=== PATIENT | female | born 1940 | race Caucasian/White ===

== ENCOUNTER → 2018-05-22 09:50 | Outpatient (CLI) | payer OTHER, SELFPAY | PROVIDERS: PCP Family Medicine; Visit Provider Specialist/Technologist Athletic Trainer | DX: M85.852 Other specified disorders of bone density and structure, left thigh (principal); Z78.0 Asymptomatic menopausal state; F17.200 Nicotine dependence, unspecified, uncomplicated; Z91.89 Other specified personal risk factors, not elsewhere classified | CPT/HCPCS: 77080 ==

== ENCOUNTER → 2019-02-28 09:57 | Outpatient (CLI) | payer OTHER, SELFPAY ==
--- NOTE | 2019-02-28 10:12 | DI.CT.S_ITS ---
PROCEDURE: CT LE LT W CON INDICATIONS: Pain in left ankle and joints of left foot TECHNIQUE: Noncontrast 1-1.5 mm axial sections acquired from above the tibiotalar joint to the bottom of the calcaneus, with coronal and sagittal reformats. COMPARISON: [facility] [place], [place], XR ANKLE 3 VIEWS WEIGHT BEARING RIGHT, 02/23/2019, 13:45. FINDINGS: Image quality: Excellent. Bones: Diffuse osteopenia. Comminuted, intra-articular fracture of the distal tibial plafond is seen with mild impaction and minimal articular surface incongruity. There is mild diastasis of the lateral tibial plafond articular surface measuring approximately 1 mm image 189/4 Additionally, minimally impacted fracture of the distal fibula/lateral malleolus. Age-indeterminate calcaneal fracture is noted which may be subacute or chronic given the presence of some callus formation Chronic spurring at the plantar calcaneus. There is diffuse midfoot and hindfoot degenerative sclerosis and spurring. First MTP degeneration and diffuse interphalangeal osteoarthritis. Soft tissues: Extensive hindfoot subcutaneous soft tissue edema and tibiotalar joint effusion. Diffuse muscle atrophy IMPRESSION: Mildly impacted intra-articular fracture of the distal tibial plafond, with minimal articular surface incongruity. The appearance is worrisome for acute (versus subacute) age. Minimally impacted fracture of the distal fibula/lateral malleolus. This finding also suspected to be acute versus subacute. Age-indeterminate anterior calcaneal fracture, suspect subacute or chronic. Recommend clinical correlation Diffuse osteopenia. Diffuse muscle atrophy Hindfoot soft tissue edema and tibiotalar joint effusion Dictated by: Hank Combs M.D. on 02/28/2019 at 10:20 Approved by: Hank Combs M.D. on 02/28/2019 at 10:29
== END ==
PROVIDERS: Family Provider Family Medicine; PCP Family Medicine; Visit Provider Orthopaedic Surgery Foot and Ankle Surgery
DX: M25.572 Pain in left ankle and joints of left foot (principal); S82.392A Other fracture of lower end of left tibia, initial encounter for closed fracture; S82.62XA Displaced fracture of lateral malleolus of left fibula, initial encounter for closed fracture; S92.022A Displaced fracture of anterior process of left calcaneus, initial encounter for closed fracture; M85.872 Other specified disorders of bone density and structure, left ankle and foot; M25.472 Effusion, left ankle; M62.572 Muscle wasting and atrophy, not elsewhere classified, left ankle and foot
CPT/HCPCS: 73700

== ENCOUNTER → 2019-04-09 11:02 | Outpatient (CLI) | payer OTHER, SELFPAY ==
--- NOTE | 2019-04-09 | DI.US.S_ITS ---
PROCEDURE: US PERIPH VENOUS LOW EXTREM LT INDICATIONS: LT LEG SWELLING TECHNIQUE: Real-time imaging, as well as color and pulse Doppler interrogation, were performed of the lower extremity deep veins from the inguinal ligament to the popliteal fossa. COMPARISON: None. FINDINGS: The common femoral, femoral and popliteal veins are normally compressible, and free of intraluminal thrombus. Color and pulse Doppler demonstrate normal phasic intraluminal flow. There is normal augmentation response to distal compression maneuver. IMPRESSION: No DVT found. Dictated by: Rony Carrasquillo M.D. on 04/09/2019 at 13:10 Approved by: Rony Carrasquillo M.D. on 04/09/2019 at 13:10
== END ==
PROVIDERS: Family Provider Family Medicine; PCP Family Medicine; Visit Provider Orthopaedic Surgery Foot and Ankle Surgery
DX: M79.89 Other specified soft tissue disorders (principal)
CPT/HCPCS: 93971

== ENCOUNTER → 2019-12-04 11:04 | Outpatient (CLI) | payer OTHER, SELFPAY ==
[2019-12-05 14:15] LABS: COVID19 Sendout Not Detected (Not Detect)
== END ==
PROVIDERS: Family Provider Family Medicine; PCP Family Medicine; Visit Provider Physician Assistant
DX: Z11.59 Encounter for screening for other viral diseases (principal)
CPT/HCPCS: 87635

== ENCOUNTER 2019-12-08 15:41 | Observation (INO) | payer OTHER, SELFPAY ==
[2019-12-05 08:25] VITALS: BMI 26.8
[2019-12-07] VITALS (14 sets, daily range): BP systolic 109–144; BP diastolic 49–75; PULSE 71–91; RESP 12–18; TEMP 35.9–36.9; O2SAT 94–100; BMI 26.8
--- NOTE | 2019-12-07 | DI.RAD.S_ITS ---
PROCEDURE: XR ANKLE LT MIN 3V INDICATIONS: OR TECHNIQUE: 3 limited intraoperative fluoroscopic views of the left ankle were acquired. COMPARISON: [facility] [place], XR ANKLE 1 OR 2 VIEWS LEFT, 09/25/2019, 15:55. FINDINGS: Status post ORIF of the distal tibia and calcaneus. No gross hardware complication. Prominent plantar calcaneal spur. Fully threaded, anterograde cannulated screw is seen extending across the calcaneus and talus. IMPRESSION: Intraoperative fluoroscopic support for ORIF of the left ankle. Please see procedure note for further details. Dictated by: Tom Mackenzie M.D. on 12/07/2019 at 14:59 Approved by: Tom Mackenzie M.D. on 12/07/2019 at 15:03
[2019-12-07] MEDS: LACTATED RINGERS 1,000 ML 42 ML IV ×2 (07:29→10:46)
--- NOTE | 2019-12-07 07:30 | PM.PREOP ---
Pre-operative Note COVID-19 COVID-19 status: Negative Interval Note History & Physical reviewed/Exam performed by Physician: Yes Changes to H&P: No
[2019-12-07] MEDS: MIDAZOLAM 2 MG/2 ML VIAL IV (07:40)
--- NOTE | 2019-12-07 07:47 | SUR.PREOP ---
Block start time [0740] . Monitoring initiated and maintained throughout procedure. Oxygen and medications given per anesthesiologist instructions. Patient remained stable throughout procedure, no adverse reactions noted. Block end time [0743].
[2019-12-07] MEDS: CEFAZOLIN 2 GM/100 ML FROZ.PIGGY IV ×2 (07:48→15:58)
--- NOTE | 2019-12-07 08:45 | SUR.OPER ---
Supine on padded OR bed, head on pillow, arms secured on padded arm boards at <90 degrees abduction, legs uncrossed, safety belt at abdomen, tape over blanket over right lower leg. left leg prepped and draped in sterile field, hip bump left hip
[2019-12-07] MEDS: BUPIVACAINE 0.25% W/ EPI 30 ML VIAL INJ (08:53)
--- NOTE | 2019-12-07 12:24 | P.OP_ITS ---
Operative Date/Time/Diagnoses Date of procedure: 12/07/19 Time of procedure: 08:00 Pre-op diagnosis: Left ankle arthritis, closed displaced pilon fracture left tibia with malunion, as arthritis left subtalar joint, rheumatoid arthritis Post-op diagnosis: same Procedure & Clinicians Procedure: 1. Arthrodesis ankle left CPT code 87898 2. Subtalar arthrodesis CPT code 01613 3. Osteotomy fibula distal left CPT code 36524 Same procedure as scheduled: Yes Indications: Patient is a 78-year-old female with a history of rheumatoid arthritis severe flatfoot and valgus deformity of the foot. She had an insufficiency fracture of the left distal fibula and tibia that severely deteriorated over time resulting in a complete collapse and subluxation of the ankle joint. She has an abrasive will deformity is but indicated for tibiotalar calcaneal fusion. She has underlying rheumatoid arthritis. She has been optimized for surgery by her electronics parts sales representative and the deckhand sponge boat. She has been taking vitamin-D and calcium. The risks and benefits of the procedure have been discussed with the patient even opportunity to ask questions. The risks of surgery include but are not limited to infection, malunion, nonunion, persistence of pain, damage to nerves and blood vessels, posttraumatic arthritis, DVT, PE, cardiopulmonary complications and . The patient expressed a thorough understanding of the risks and benefits of surgery and has elected to proceed. Consent was signed in the office. Surgeon: Maria T Daley Corporate Accountant: Jarad Hernandez Anesthesia Type: General and Local Operative Notes Findings: Severe valgus subluxation of the ankle with anterior talar extrusion. Bone loss anteriorly at the tibia. No signs of infection. Distal fibula malunion. Distal tibia malunion Closure Type: primary Specimen(s): none sent Prosthetic devices, grafts, tissues, transplants, or devices: Arthrex tibiotalarcalcaneus fusion plate, locking, left. And screws. 7.0 headless compression screw, subtalar joint Estimated Blood Loss (mL): 30 Blood products transfused: none Tourniquet time (min): 130 Procedure in detail: Patient was seen in the preoperative area the site of surgery marked informed consent confirmed. Patient underwent a peripheral block by the anesthesia team for postoperative pain control. She was brought back to the operating room positioned supine on the operative table. All bony prominences were well-padded. Well-padded thigh tourniquet was placed. An ipsilateral thigh bump was placed. The left lower extremities prepped and draped in the standard sterile fashion a formal time-out procedure was performed confirming the patient's side and site of surgery administration of appropriate preoperative antibiotics. All were in agreement. Implants were in the room Left lower extremity evaluated there is severe valgus deformity of the ankle. There were no open wounds. An Esmarch was used for exsanguination the tourniquet was elevated to 250 mm of mercury and was lowered after 2 hours and 10 minutes and was not Re elevated. Lateral incision was made over the distal fibula shaft curving anteriorly toward the cuboid distally. This was taken down through the skin and subcutaneous tissues to the level of the fibula. Periosteum was elevated exposing the fibular shaft proximally 8 cm above the joint and then distal to the level of the subtalar joint. Peroneal tendon sheath was opened. Peroneal tendons were retracted. And the subtalar joint was exposed. Saw was used to make an osteotomy of the fibular shaft distally and the distal fibula was mobilized and excised. This was then divided and morselized for bone graft. There was a malunion of the distal fibula fracture noted as well. Once this was removed this provided access to the subtalar and ankle joints. The talus was anteriorly subluxed. The attention was then turned medially for the medial exposure and excision of the medial malleolus. This was taken direct 6 cm longitudinal incision over the medial malleolus down to the level of the bone. This was subperiosteal dissected. Care was taken to expose and protect the posterior tibialis tendon and then get all around the way posteriorly protecting the FHL in the neurovascular bundle. Saw was used to make a transverse medial malleolar ulnar osteotomy and the osteotome was used to extend this posteriorly on the p osterior plafond overall making a flat cut to the end of the distal tibia. Once this was removed part of the medial malleolus was also used for bone graft. At this provided excellent bleeding surfaces of cancellous bone at the distal tibia. Some sclerotic areas anteriorly were cleaned up using the rongeur and the bur. Attention was turned to the talus. A matching flat cut of the talus just took off the cartilage down to level of bleeding cancellous bone. A taking care to minimize resection. We did however fine with the site of resection and no formal Achilles lengthening was required. Next attention was turned to the subtalar joint preparation. The Synthes joint prep set of osteotomes and a curette was used to prepare the subtalar joint again down to bleeding cancellous bone. Next the wounds were irrigated. Then the bur and a 2 mm drill were used to fenestrate the surfaces for further healing. The autograft bone and 15 cc of cancellous allograft chips were then mixed together and placed within the subtalar and tibiotalar joints. The joints were reduced and aligned obtaining excellent correction of the deformity and this was pinned in place using temporary K-wires. Once this was satisfactory on intraoperative multiplanar fluoroscopy this was again pinned and the lateral left-sided tibiotalar calcaneal plate was fit to the bone and positioned the making sure adequate bony purchase could be obtained. This was secured with BB tacks. Once this was adequate in nonlocking screw was placed in 1 of the talar holes followed by a locking screw Then attention was turned distally and a nonlocking screw was placed in the oblong hole of the calcaneus a compressing the subtalar joint. An additional 7.0 headless screw was placed outside of the plate to compress the subtalar joint to increase the likelihood of union in this high risk patient. Following this the all locking screws in the calcaneus were placed. Next attention was turned to the ankle joint. The nonlocking screw was placed in the oblong hole of the tibial part of the plate compressing the ankle joint. Then attention was turned to the a built in 6 compression hole across the ankle joint this was drilled with the 3 0 drill then over drilled with the 5 5 and the 5 5 screw was placed. Excellent compression was achieved. The remaining plate holes were then filled with locking screws. At the end of the case the nonlocking screw from the oblong hole of the tibial part of the plate was found to be loose and so this was removed. Final x-rays were taken confirming appropriate alignment and correction of the left lower extremity. The tourniquet was released hemostasis was achieved. A medium Hemovac drain was placed. Closure was completed with the 2 O Vicryl in the deep tissues and subcutaneous layers followed by 4 0 Monocryl and 3 O nylon suture. Sterile dressing was placed with Xeroform gauze Webril bulky Patel cotton and a well-padded posterior splint. Patient was woken from anesthesia and taken to the PACU in good condition. There no immediate complications from this procedure. All counts were correct. Complications: none Post-operative Condition: stable Disposition: PACU Plan for aftercare: Admission overnight will continue drain. Drain will be removed tomorrow before discharge. Plan discharge postop day 1 if pain is controlled. She will be nonweightbearing on the left lower extremity. May touchdown for balance if needed. Elevation above the heart level for the 1st 2- 3 weeks after surgery. A keep dressing clean dry and intact. She will aspirin for DVT prophylaxis. Tramadol for pain medications and she did well with this before. She endorses that she previously did not tolerate oxycodone. We will give her a small prescription of hydromorphone pain med p.o. for breakthrough pain. And she will anti nausea medication. These have been sent electronically to her pharmacy.
[2019-12-07] MEDS: LACTATED RINGERS 1,000 ML 100 ML IV (12:50)
--- NOTE | 2019-12-07 13:22 | PC.NURSE ---
Day Shift- Report rec'd from THANH Hdz in PACU at 1125. Pt arrived to unit at 1235 via bed. Pt A&OX4, oriented to call light, bed function. LLE elevated on 3 pillows. LLE incision not visualized, covered with splint and ike wrap. Cap refill <2 secs, unable to palpate pedal pulse due to dressing. Hemovac insitu and device compressed. Ice pack to LLE. Pt denies any pain at this time. LLE numb, pt not able to wiggle toes at this time to left foot. Pt is able to move leg. Bed alarm on. IVF started per order. Pt's friend Lance now in room visiting and who is pt's check writer salesperson. Lance aware of visitor policy and needing to keep her mask on at all times while visiting.
[2019-12-07] MEDS: ACETAMINOPHEN 325 MG TABLET 975 MG PO ×2 (14:22→20:52)
--- NOTE | 2019-12-07 15:20 | PT.IIE ---
Current Diagnoses Rheumatoid arthritis, unspecified (12/07/19) Primary osteoarthritis, left ankle and foot (12/07/19) Primary osteoarthritis, unspecified ankle and foot (12/07/19) Displaced pilon fracture of left tibia, subsequent encounter for closed fracture with malunion (12/07/19) Surgery Performed Operation Date: 12/07/19 07:45 Actual Procedures p Open ankle fusion & subtalar joint fusion. fibular osteotomy & bone graft autograft or allograft(Left) - Maria T Daley MD Surgical History (Last Updated 12/05/19 @ 08:43 by Marisol Alonso RN) History of arthroplasty of right knee (Acute 08/2015) History of carpal tunnel release (Acute 1997) Hx of oral surgery (Acute 1988) Medical History (Last Updated 12/05/19 @ 08:43 by Marisol Alonso RN) Allergic rhinitis (Acute) Anxiety (Acute) Asthma (Acute) Colitis (Acute) COPD (chronic obstructive pulmonary disease) (Acute) Dyslipidemia (Acute) Dyspnea on exertion (Acute) Edema (Acute) Emphysema of lung (Acute) Foot fracture, left (Acute) GERD (gastroesophageal reflux disease) (Acute) Herpes zoster (Acute) Hyponatremia (Acute) Hypothyroidism (Acute) Iron deficiency anemia (Acute) Lung nodule, solitary (Acute) Osteoarthritis (Acute) Osteoporosis (Acute) Pes planus (Acute) Pneumonia (Acute) Reactive airway disease (Acute) Rheumatoid arthritis (Acute) Scoliosis (Acute) Sinusitis (Acute) Toe pain (Acute) Physical Therapy Inpatient Evaluation/Re-Eval M1 PT/OT-IP Prior Functional Status Start: 12/07/19 16:58 Freq: NEEDED Status: Active Protocol: Document 12/07/19 15:20 AB (Rec: 12/07/19 17:16 AB [id number]) Medical Review Prior Functional Status Medical History Reviewed Yes Communication able to make needs known Mobility and Gait stated that she is modified independent with all mobilities and ambulation without AD prior to ankle fx but uses 4WW for outdoor ambulation. pt stated that she had her ankle problem since december and was able to manage at home with use of 4WW and her friend assists her as needed. Social History Household Members none Living Arrangements House Number of Floors (Floors) One Floor Number of Stairs To Enter/Railing? just a smal ~ 1inch threshold to enter the house Home Environment High Toilet,Walk in Shower Home Equipment Four Wheel Walker,Shower Seat with Backrest,Hand Held Shower Additional Social History Comment pt has a safety frame at home stated that she just got a knee scooter pt stated that her friend will stay with her for ~ 2 weeks to assist her and afterwards her daughter will be coming to assist M2 PT-IP Current Condition Start: 12/07/19 16:58 Freq: NEEDED Status: Active Protocol: Document 12/07/19 15:20 AB (Rec: 12/07/19 17:16 AB [email or web address]) Physical Therapy Current Condition Current Condition Evaluation Date 12/07/19 Treatment Diagnosis s/p L ankle arthrodesis; difficulty in walking Onset Date 12/07/19 Precautions Brace soft cast on LLE Weight Bearing Status Weight Bearing Status Non-Weight Bearing Allowed Weight Bearing Amount (enter % LLE NWB: per Dr. Sharp's or #) (%) order: NWB LLE; foot down for balance ok M3 PT-IP Subjective Start: 12/07/19 16:58 Freq: NEEDED Status: Active Protocol: Document 12/07/19 15:20 AB (Rec: 12/07/19 17:16 AB [email or web address]) Subjective Physical Therapy Visit Type Type Initial Evaluation Visit Start Time 15:20 Visit Stop Time 16:06 Total Visit Minutes 46 Number of CHEMICALS DISTILLER Visits 0 Physical Therapy Visit Comments Patient Comments pt is agreeable to do PT Therapy Pain Assessment Pain Present Pain Present Denied Pain M4 PT-IP Mobility and Gait Start: 12/07/19 16:58 Freq: NEEDED Status: Active Protocol: Document 12/07/19 15:20 AB (Rec: 12/07/19 17:16 [email or web address]) PT-Bed Mobility Assessment Supine to Sit Supine to Sit Standby Assistance Sit to Supine Sit to Supine Standby Assistance PT-Transfer Assessment Sit to and From Stand Sit to and from Stand Moderate Assistance,1 Person Assistance,Use of Upper Extremities Equipment Transfer Assistive Device Gait Belt,Front Wheeled Walker Orthotic/Prosthetic Devices or Brace: No Transfers Transfer Destination Bedside Commode Transfer Technique Stand Step Pivot Transfer Ability Level of Assist Maximum Assistance,1 Person Assistance,Use of Upper Extremities Comments Mobility Comments educated pt on precautions and weight bearing restriction. completed supine to sit SBA. pt was able to sit on EOB SBA. initial c/o dizziness but dissipated after a few minutes . BP: 133/77. completed sit to stand mod A and cues for NWB. completed step transfer to bedside commode mod to max A and max cues to maintain NWB on LLE. pt completed sit to stand from bedside commode max A and cues and transferred back to bed using FWW max A and cues. pt required cues and assist to maintain NWB on LLE. informed pt that she will need a w/c and a FWW to use at home. also instructed to call her friend to bring her knee scooter tomorrow. pt agreed. pt given options for obtaining FWW and wanted the hospital to process and dispense her one. Gait Assessment Comments Gait Comments unable at this time PT-Balance Assessment Sitting Balance and Reactions Static Sitting Balance Ability Good Dynamic Sitting Balance Ability Fair Standing Balance and Reactions Static Standing Balance Ability Poor Dynamic Standing Balance Ability Poor Device Used FWW M5 PT-IP Objective Assessments Start: 12/07/19 16:58 Freq: NEEDED Status: Active Protocol: Document 12/07/19 15:20 AB (Rec: 12/07/19 17:16 AB [id number]) Orientation Orientation/Cognition Level of Alertness Alert Orientation Name,Place,Situation Safety Awareness Decreased Safety Awareness Gross Range of Motion Lower Extremity ROM Assessment Left Impaired Impairments LLE on a soft cast Strength Lower Extremity Strength Assessment Left Impaired Hip 4-/5 Knee 3+/5 Ankle on a soft case; unable to wiggle toes Sensation Assessment Sensation Gross Sensation Left LE Impaired Sensation Description Numbness Comments Sensation Comments c/o numbness on L foot/toes Muscle Tone Muscle Tone WNL Yes M6 PT-IP Treatment Start: 12/07/19 16:58 Freq: NEEDED Status: Active Protocol: Document 12/07/19 15:20 AB (Rec: 12/07/19 17:16 AB [email or web address]) Physical Therapy Treatment Education Education Provided Precautions,Weight Bearing Status,Safety M7 PT-IP Assessment and Plan Start: 12/07/19 16:58 Freq: NEEDED Status: Active Protocol: Document 12/07/19 15:20 AB (Rec: 12/07/19 17:16 AB [email or web address]) PT Summary Assessment and Plan Potential Rehabilitation Potential Fair Status of Condition at Evaluation Evolving Summary Impairments Pain,ROM,Strength,Balance, Coordination,Sensation,Tone, Cognition,Bed Mobility, Transfers,Gait,Activity Tolerance Assessment Summary pt requiring mod to max A with mobility and unable to ambulate at this time and requires assist to maintain NWB on LLE. will conduct caregiver when appropriate. Also recommending FWW and w/c for pt to use. Pt plans to go home and her friend will assist her. pt will need homehealth PT. Goals Bed Mobility Goal Independent Transfer Goal Standby Assistance,Front Wheeled Walker Gait Goal Standby Assistance,Front Wheel Walker Gait Distance 50 Other Goals ambulation using knee scooter 100 ft SBA Days to Meet Goals 5 Frequency of Treatment Frequency Of Treatment Twice a Day Treatment Plan Physical Therapy Treatment Plan Bed Mobility Training,Transfer Training,Gait Training, Therapeutic Exercise,Balance Retraining,Post Op Education, Discharge Planning,Hot or Cold Pack,Neuromuscular Re-ed, Coordination Retraining,Manual Therapy Other Recommendations and Next Treatment caregiver training; ambulation Focus using FWW/knee scooter Recommendations To Nursing Amount of Assist Needed 1 Person Assist Discharge Recommendations PT Discharge Recommendations Home with / Assist,Home Health Transportation Needs at Discharge Private Vehicle
--- NOTE | 2019-12-07 16:54 | PM.PNPO.1 ---
Subjective Subjective Date Patient Seen: 12/07/19 Time Patient Seen: 16:54 Interval history: Postop day 0 left TTC fusion Doing well. Block working. Pain controlled. Exam Vital Signs (past 8 hours): - 12/07/19 12:00 12/07/19 12:05 12/07/19 12:10 Temperature 97 F L 97.1 F L 97.7 F Pulse Rate 91 H 90 89 Respiratory Rate 13 13 15 Blood Pressure 126/64 117/49 L 120/59 L Pulse Oximetry 95 95 100 12/07/19 12:15 12/07/19 12:20 12/07/19 12:25 Temperature 97.6 F 96.9 F L 97.6 F Pulse Rate 90 87 86 Respiratory Rate 12 12 12 Blood Pressure 134/59 L 125/58 L 116/59 L Pulse Oximetry 94 96 95 12/07/19 12:35 12/07/19 13:05 12/07/19 14:00 Temperature 96.7 F L 97.3 F L 97.7 F Pulse Rate 89 86 89 Respiratory Rate 12 14 15 Blood Pressure 109/69 129/71 144/67 H Pulse Oximetry 97 98 97 12/07/19 15:23 12/07/19 16:09 Temperature 97.0 F L 97.0 F L Pulse Rate 85 71 Respiratory Rate 18 18 Blood Pressure 127/75 118/72 Pulse Oximetry 96 Oxygen Delivery Method Room Air Oxygen Flow Rate 0 Assessment & Plan Post-op Postoperative Procedures: Procedures Operation Date: 12/07/19 07:45 Actual Procedures Side Surgeon p Open ankle fusion & subtalar joint fusion. fibular osteotomy & bone graft autograft or allograft Left Maria T Daley MD Postop day 0 left TTC fusion Nonweightbearing left lower extremity. May placed foot down for balance. Will start aspirin 81 mg b.i.d. for DVT prophylaxis on postop day 1 Remove drain postop day 1. This is just secured to the leg by a Steri-Strips found at the proximal aspect of the splint just below the knee. To remove drain just removed Steri-Strips and pull drain proximally out of the dressings. Leave splint intact. Patient has pain medications that were sent electronically. These are tramadol, small prescription of Dilaudid p.o. for breakthrough pain, Colace, Zofran. She has not tolerated oxycodone in the past but has done well with tramadol after other surgeries. She will resume her normal home medications including vitamin-D and calcium. Elevate leg above heart level to help with pain and swelling. She will get 2 doses of postoperative antibiotics while in the hospital. Pain isn't controlled on postoperative day 1 May stay for observation- pain management but if pain controlled anticipate discharge home postop day 1. Quality VTE Deep Vein Thrombosis/Pulmonary Embolism Present on Admission: No
[2019-12-07] MEDS: MONTELUKAST 10 MG TABLET PO (20:52)
[2019-12-07] MEDS: DOCUSATE 100 MG CAPSULE PO (20:52)
[2019-12-08] VITALS (8 sets, daily range): BP systolic 91–125; BP diastolic 49–82; PULSE 87–95; RESP 16–18; TEMP 36.4–36.9; O2SAT 96–99; BMI 26.8
[2019-12-08] MEDS: LEVOTHYROXINE 75 MCG TABLET PO (05:10)
[2019-12-08] MEDS: PANTOPRAZOLE 20 MG TABLET PO (05:10)
[2019-12-08] MEDS: CEFAZOLIN 2 GM/100 ML FROZ.PIGGY IV (05:11)
[2019-12-08 05:17] LABS: Hemoglobin 9.5 g/dL (12.0-16.0); Mean Corpuscular HGB Conc 33.9 % (30-36); Mean Corpuscular Hemoglobin 33.6 PG (26-34); Mean Corpuscular Volume 99.1 fL (80-100); Platelet Count 240 X10^3/uL (150-400); Red Blood Cell Count 2.82 X10^6/uL (4.0-5.2); White Blood Cell Count 13.9 X10^3/uL (4.5-11.0)
--- NOTE | 2019-12-08 05:48 | PC.NURSE ---
Addendum entered by Shireen Hsieh R.N. 12/08/19 06:02: 50 mL of sanguineous drainage from Hemov[facility] for shift. Surgical dressing remains clean, dry, intact. 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 Patient has not had much sensation in left toes nor able to move toes throughout shift, currently patient now stating she is starting to regain sensation and pressure (patient had block placed in surgery). CMS remains intact throughout shift and patient can move entire left lower extremity, just not toes. Patient requiring no pain medication. Patient using bedpan x1, and large incontinent episode x1. Patient with VSS, saline locked, and able to reposition independently in the bed. Patient remains AOx4, and on RA. Patient resting in bed in no distress.
[2019-12-08] MEDS: ALBUTEROL HFA 200 PUFF/18 GM INH (COVID POS/VENT PTS) INH (08:39)
[2019-12-08] MEDS: ACETAMINOPHEN 325 MG TABLET 975 MG PO ×3 (08:50→20:53)
[2019-12-08] MEDS: LACTOBACILLUS ACIDOPHILUS TABLET 1 EACH PO (08:51)
[2019-12-08] MEDS: ASPIRIN EC 81 MG TABLET PO ×2 (08:51→20:53)
[2019-12-08] MEDS: DOCUSATE 100 MG CAPSULE PO ×2 (08:51→20:53)
[2019-12-08 10:06] LABS: Bacteria Urine None Seen; RBC Urine None Seen (0-5/HPF)
[2019-12-08 10:07] LABS: Appearance Urine UA CLEAR; Bilirubin Urine UA NEGATIVE (NEGATIVE); Color Urine UA YELLOW; Glucose Urine UA NEGATIVE (Negative); Ketones Urine UA NEGATIVE (NEGATIVE); Leukocyte Esterase Urine UA 1+ (NEGATIVE); Nitrite Urine UA NEGATIVE (Negative); Occult Blood Urine UA NEGATIVE (Negative); Protein Urine UA NEGATIVE (Negative); Urobilinogen Urine UA 0.2 E.U./dL (0.2)
[2019-12-08 11:07] LABS: Amorphous Sediment Urine 1+; Culture Indicated Urine Specimen Cultured; Squamous Epithelial Cell Urine 0-1 /HPF (0-5/HPF); WBC Urine 0-1/HPF (0-5/HPF)
--- NOTE | 2019-12-08 11:30 | P.PN_ITS ---
Subjective Subjective Date Patient Seen: 12/08/19 Time Patient Seen: 11:30 Interval history: Patient is POD# 1 s/p tibotalocalcaneal fusion with Dr. Daley. Her pain has been well controlled. She has not worked with PT yet. She is tolerating a diet. She does complain of pain with urination, frequency, and incontinence. She has history of UTI in the past and states this feels the same. Otherwise no complaints. Exam Vital Signs (past 8 hours): - 12/08/19 04:30 12/08/19 07:59 12/08/19 08:32 Temperature 98.1 F 98.1 F Pulse Rate 91 H 94 H 90 Respiratory Rate 18 16 18 Blood Pressure 115/82 125/53 L Pulse Oximetry 97 97 97 12/08/19 11:20 Temperature 98.4 F Pulse Rate 87 Respiratory Rate 16 Blood Pressure 91/49 L Pulse Oximetry 97 Oxygen Delivery Method Room Air Oxygen Flow Rate 0 Narrative Exam Narrative: 78 year old female resting in bed. Alert and oriented x3 in no acute distress. Splint in place is CDI. Wound vac in place 50cc output over the last shift. Some padding added to the posterior proximal edge of splint as plaster is exposed. Patient is able to flex/extend the toes. Toes are warm with brisk capillary refill. Objective Labs Result Diagrams: 12/08/19 04:45 Labs: Laboratory Results - last 24 hr 12/08/19 12/08/19 04:45 09:15 WBC 13.9 H RBC 2.82 L Hgb 9.5 L Hct 28.0 L MCV 99.1 MCH 33.6 MCHC 33.9 RDW 16.0 H Plt Count 240 Urine Color Yellow Urine Appearance Clear Urine pH 7.0 Ur Specific [place] 1.010 Urine Protein Negative Urine Glucose (UA) Negative Urine Ketones Negative Urine Occult Blood Negative Urine Nitrate Negative Urine Bilirubin Negative Urine Urobilinogen 0.2 Ur Leukocyte Esterase 1+ H Urine RBC None seen Urine WBC 0-1/hpf Ur Squamous Epith Cells 0-1 /hpf Amorphous Sediment 1+ Urine Bacteria None seen Ur Culture Indicated? Specimen cultured Assessment & Plan Assessment & Plan narrative: Per Dr. Daley: Nonweightbearing left lower extremity. May placed foot down for balance. Will start aspirin 81 mg b.i.d. for DVT prophylaxis on postop day 1 Leave splint intact. Patient has pain medications that were sent electronically. These are tramadol, small prescription of Dilaudid p.o. for breakthrough pain, Colace, Zofran. She has not tolerated oxycodone in the past but has done well with tramadol after other surgeries. She will resume her normal home medications including vitamin-D and calcium. Elevate leg above heart level to help with pain and swelling. She is doing well today, pain well controlled. Does complain of UTI symptoms, m ildly elevated WBC and 1+ leuk esterace on UA. Will discharge with 3 day supply of cipro for this. Drain discontinued. She has a friend who is staying with her as caregiver. She is stable for discharge to home later today. Quality VTE Deep Vein Thrombosis/Pulmonary Embolism Present on Admission: No
--- NOTE | 2019-12-08 11:40 | PT-IP ANOTE ---
Attempted to see pt @11:40. Per RN, hold from PT until PM d/t low BP and pt receiving bolus.
[2019-12-08] MEDS: SODIUM CHLORIDE 0.9% 500 ML 1000 ML IV (11:45)
[2019-12-08] MEDS: CIPROFLOXACIN 250 MG TABLET PO ×2 (12:07→20:52)
--- NOTE | 2019-12-08 14:03 | PT.IPTN ---
Current Diagnoses Rheumatoid arthritis, unspecified (12/07/19) Primary osteoarthritis, left ankle and foot (12/07/19) Primary osteoarthritis, unspecified ankle and foot (12/07/19) Unspecified urinary incontinence (12/07/19) Unspecified abnormal findings in urine (12/07/19) Displaced pilon fracture of left tibia, subsequent encounter for closed fracture with malunion (12/07/19) Surgery Performed Operation Date: 12/07/19 07:45 Actual Procedures p Open ankle fusion & subtalar joint fusion. fibular osteotomy & bone graft autograft or allograft(Left) - Maria T Daley MD Physical Therapy Treatment Note M2 PT-IP Current Condition Start: 12/07/19 16:58 Freq: NEEDED Status: Active Protocol: Document 12/07/19 15:20 AB (Rec: 12/07/19 17:16 AB [id number]) Physical Therapy Current Condition Current Condition Evaluation Date 12/07/19 Treatment Diagnosis s/p L ankle arthrodesis; difficulty in walking Onset Date 12/07/19 Precautions Brace soft cast on LLE Weight Bearing Status Weight Bearing Status Non-Weight Bearing Allowed Weight Bearing Amount (enter % LLE NWB: per Dr. Sharp's or #) (%) order: NWB LLE; foot down for balance ok M3 PT-IP Subjective Start: 12/07/19 16:58 Freq: NEEDED Status: Active Protocol: Document 12/08/19 13:35 KS (Rec: 12/08/19 14:43 KS [id number]) Subjective Physical Therapy Visit Type Type Treatment Note Visit Start Time 13:35 Visit Stop Time 14:03 Total Visit Minutes 28 Number of DRY CHAIN OFFBEARER Visits 1 Physical Therapy Visit Comments Patient Comments pt is agreeable to do PT Therapy Pain Assessment Pain Present Pain Present Denied Pain M4 PT-IP Mobility and Gait Start: 12/07/19 16:58 Freq: NEEDED Status: Active Protocol: Document 12/08/19 13:35 KS (Rec: 12/08/19 14:43 KS [id number]) PT-Bed Mobility Assessment Supine to Sit Supine to Sit Standby Assistance Sit to Supine Sit to Supine Contact Guard Assistance Scooting Scooting to Edge of Bed Contact Guard Assistance PT-Transfer Assessment Sit to and From Stand Sit to and from Stand Minimal Assistance,1 Person Assistance,Use of Upper Extremities Equipment Transfer Assistive Device Gait Belt,Front Wheeled Walker Orthotic/Prosthetic Devices or Brace: No Transfers Transfer Destination Bed,Bedside Commode Transfer Technique Stand Pivot Transfer Ability Level of Assist Moderate Assistance,1 Person Assistance,Use of Upper Extremities Comments Mobility Comments Pt able to recall NWB status. Pt receiving bolus upon arrival but okayed by RN to treat. Pt SBA for sup<>sit, CGA for scooting EOB. Pts BP: 106/52 dneied lightheadedness. Pt Min A for sit<>stand w/ FWW but unable to fully remove LLE from ground. Pt performed 2x sit<>stands, requiring Min A for both. Pts BP assessed again at 104/52. Pt then requested to use BSC. Pt Mod A and cues for stand pivot to BSC and unable to maintain NWB during transfer. Pt then performed stand picot back to bed Mod A and cues for hand placement and sequencing. CGA for sit<>sup. Pt left in bed w / RN in room. Gait Assessment Comments Gait Comments unable at this time d/t pt not able to maintain NWB PT-Balance Assessment Sitting Balance and Reactions Static Sitting Balance Ability Good Dynamic Sitting Balance Ability Fair Standing Balance and Reactions Static Standing Balance Ability Poor Dynamic Standing Balance Ability Poor Device Used FWW M5 PT-IP Objective Assessments Start: 12/07/19 16:58 Freq: NEEDED Status: Active Protocol: Document 12/07/19 15:20 AB (Rec: 12/07/19 17:16 AB [id number]) Orientation Orientation/Cognition Level of Alertness Alert Orientation Name,Place,Situation Safety Awareness Decreased Safety Awareness Gross Range of Motion Lower Extremity ROM Assessment Left Impaired Impairments LLE on a soft cast Strength Lower Extremity Strength Assessment Left Impaired Hip 4-/5 Knee 3+/5 Ankle on a soft case; unable to wiggle toes Sensation Assessment Sensation Gross Sensation Left LE Impaired Sensation Description Numbness Comments Sensation Comments c/o numbness on L foot/toes Muscle Tone Muscle Tone WNL Yes M6 PT-IP Treatment Start: 12/07/19 16:58 Freq: NEEDED Status: Active Protocol: Document 12/08/19 13:35 KS (Rec: 12/08/19 14:43 KS [id number]) Physical Therapy Treatment Education Education Provided Precautions,Weight Bearing Status,Safety Other Treatments Other Treatment Performed Switched FWW for shorter size M7 PT-IP Assessment and Plan Start: 12/07/19 16:58 Freq: NEEDED Status: Active Protocol: Document 12/08/19 13:35 KS (Rec: 12/08/19 14:43 KS [id number]) PT Summary Assessment and Plan Potential Rehabilitation Potential Fair Status of Condition at Evaluation Evolving Summary Impairments Pain,ROM,Strength,Balance, Coordination,Sensation,Tone, Cognition,Bed Mobility, Transfers,Gait,Activity Tolerance Assessment Summary Pt requires SBA to CGA for bed mobility, CGA for scooting, Min A for sit<>stand w/ cues and FWW and Mod A w/ cues for stand pivot transfer. Pt verbally confirmed NWB status, but was unale to maintain when standing and transferring . Pt has low tolerance for activity and reported high level of fatigue after 2 sit<> stands and stand pivot transfer. Unable to complete ambulation training or further treatment d/t pts high level of fatigue. Pt will need to complete caregiver training and possibly require training w/ knee scooter which her friend stated she will bring in. Pts friend also stated she has gotten w/c for pt. If returning home, pt will benefit from HH. Goals Bed Mobility Goal Independent Transfer Goal Standby Assistance,Front Wheeled Walker Gait Goal Standby Assistance,Front Wheel Walker Gait Distance 50 Other Goals ambulation using knee scooter 100 ft SBA Days to Meet Goals 5 Frequency of Treatment Frequency Of Treatment Twice a Day Treatment Plan Physical Therapy Treatment Plan Bed Mobility Training,Transfer Training,Gait Training, Therapeutic Exercise,Balance Retraining,Post Op Education, Discharge Planning,Hot or Cold Pack,Neuromuscular Re-ed, Coordination Retraining,Manual Therapy Other Recommendations and Next Treatment caregiver training; ambulation Focus using FWW/knee scooter Recommendations To Nursing Amount of Assist Needed 1 Person Assist Discharge Recommendations PT Discharge Recommendations Home with 04/10 Assist,Home Health Transportation Needs at Discharge Private Vehicle
--- NOTE | 2019-12-08 16:31 | CM.DANOTE ---
Discharge Planning/Care Management DCP: assessment: case received, EMR reviewed and discussed in Team Rounds. PT noted they were seeing pt today and that pt's friend was getting equipment for home. Pt is a 78 year old female who admitted to care of Dr. Emiliano Daley for a scheduled surgery. A d/c to home order was noted today and then cancelled by ortho PA Ryanne. Ryanne noted the complexity of the fracture and surgery and medical problems pt was experiencing. Admission status: SCD to OBS: confirmed by UR THANH Lanza. Payer: [employer]. Pt is seeing pt today, has not cleared her for d/c and is doing caregiver training. Met now with pt and introduced self and role. Pt clarifies her plan: She has obtained a recliner so that her leg can remain elevated as per ortho instructions. Her friend Lance Silver is staying with her and she reports Lance is capable of assistance. Lance is currently out getting DME. Noted PT is now recommending 24/7 assist and HH. Pt says her neighbors are very helpful and her daughters will be arriving at some point to assist her. SNF: briefly discussed as pt's [employer] plan would likely cover a short snf rehab stay. Pt says this has already been encourage by care team and it's been taken off the table by me. HH: She says that she was unaware that HH was being recommended but after explanation of this she very much agrees that PT/OT would be helpful. Discussed HH agency choice list: no specific choice. Due to lateness of hour will need to leave for DCP team to continue tomorrow and follow for the HH specifics. Advanced directive, confirm from FAMILY Start: 12/07/19 13:08 Freq: Q24H Status: Active Protocol: Document 12/07/19 13:08 AC (Rec: 12/07/19 14:39 AC [id number]) Advance Directive, confirm on record Time 12:45 Person contacted patient Copy received No CM Discharge Assessment Start: 12/08/19 16:29 Freq: Status: Active Protocol: Document 12/08/19 16:30 ITV (Rec: 12/08/19 16:31 ITV [id number]) Discharge Planning Assessment Advance Directives? Yes History Provided By Patient,Medical Record Prior Living Arrangements House Household Members none Independent with ADL's Yes Is patient alert and oriented? Yes Whiteboard Updated in Patient Room with Yes name and ext. # of Lunch Wagon Operator Review Status In Process Pre-Anesthesia Assessment Start: 12/05/19 08:25 Freq: Status: Complete Protocol: Document 12/05/19 08:25 CAB (Rec: 12/05/19 08:53 CAB [id number]) Pre-Anesthesia Assessment Patient Information Reviewed Via Chart Review H&P Completed Within 30 Days Yes Diagnostic Results BMP/CMP,CBC Comment Outside labs/EKG scanned in, COVID screen @ 12/04/19 pending Primary Care Provider Kang [facility] Medical Clearance Received Yes Seen Specialist in Last 12 Months Yes Specialist Seen Orthopedist,[employer], Other Comment PCP, Pulmonary and Rheumatology pre-op clearances scanned to record Primary Language Lao Groover Operator Required No Height 154.94 cm Weight 64.41 kg Body Mass Index (BMI) 26.8 Hx Anesthesia Reactions Yes: Long time coming out of anesthesia w/RT [id number] Anesthesia Review Requested Yes: Surgeon requested, reason not provided. Smoking Status Current every day smoker Smoking cigarettes per day 3 Pain Present Pain Reported Musculoskeletal Symptoms Deformity,Difficulty Walking, Limited Range of Motion,Muscle Weakness Patient is completely paralyzed or No completely immobile Prosthesis or Orthotic Device Front Wheel Walker Mental Status Oriented to own ability Does patient have ELIZABETH/SOB Yes: ELIZABETH Currently Taking a Beta Stevie No Can You Climb a Flight of Stairs Without No SOB Hx SOB Yes Urinary Catheter Present No Hx Urinary Self Catheterization No Diabetes No Patient No Lactating No Have you had any close contact with Unknown someone diagnosed with COVID-19?
[2019-12-08] MEDS: SODIUM CHLORIDE 0.9% 500 ML 250 ML IV (16:32)
[2019-12-08] MEDS: MONTELUKAST 10 MG TABLET PO (20:53)
[2019-12-08] MEDS: BUDESONIDE FORMOTEROL 2 EACH INH (20:57)
[2019-12-09] VITALS: BP 119/47; PULSE 89; RESP 16; TEMP 37; O2SAT 96
[2019-12-09] MEDS: TRAMADOL 50 MG TABLET PO ×3 (00:01→12:34)
[2019-12-09] MEDS: PANTOPRAZOLE 20 MG TABLET PO (05:58)
[2019-12-09] MEDS: LEVOTHYROXINE 75 MCG TABLET PO (05:58)
[2019-12-09 06:17] VITALS: BP 130/87; PULSE 92; RESP 16; TEMP 36.9; O2SAT 97
[2019-12-09 07:43] VITALS: BP 116/73; PULSE 74; RESP 17; TEMP 36.9; O2SAT 97
--- NOTE | 2019-12-09 08:59 | P.DS_ITS ---
History of Present Illness History of Present Illness Date Patient Seen: 12/09/19 Time Patient Seen: 08:59 Chief complaint: OPB Narrative: Patient is a 78-year-old female with a history of a left tibia and fibula insufficiency fractures and a valgus hindfoot deformity despite bracing and immobilization the patient went on to severe malunion and subluxation of the ankle joint with severe valgus deformity for a non braceable deformity and arthritis. As she was unable to ambulate or wear braces. She was indicated for tibiotalar calcaneal fusion. There is an underlying diagnosis of rheumatoid arthritis. She underwent medical clearance by her black pickler and senior media planner and primary care for the scant procedure. She endorses pain inability to weightbear, rubbing medially on braces. Difficulty with ambulation. Decline in function. The year prior she had similar for insufficiency fracture on the contralateral side without an underlying deformity and healed these uneventfully. Discharge Providers Provider Date of admission: 12/07/2019 Discharge Date: 12/09/19 Primary care physician: Kang Boone MD Consults: 12/05/19 13:38 Consult to Anesthesiology Routine Comment: Consulting Provider: Anesthesiologist Reason for consultation: Surgeon requested re: Reason not provided 12/07/19 06:00 Consult to Anesthesiology Routine Comment: Consulting Provider: Anesthesiologist Reason for consultation: Post operative pain managment Has provider been notified: No 12/07/19 07:02 Consult to Respiratory Therapy Evaluate & Treat Comment: Physician Instructions: Evaluate and treat 12/07/19 12:39 Consult to Discharge Planning Routine Comment: Consult to Physical Therapy Evaluate & Treat Comment: NWB LLE - foot down for balance ok Physician Instructions: Evaluate and Treat Consult to Respiratory Therapy Evaluate & Treat Comment: Physician Instructions: Evaluate and treat 12/08/19 09:22 Consult to Physical Therapy Evaluate & Treat Comment: Please dispense a front wheel walker Physician Instructions: Evaluate and Treat Discharge provider: Maria T Daley MD Summary Hospital Course Discharge Diagnosis: 1. 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 Acute blood loss postoperative anemia 5. Rheumatoid arthritis 6. UTI Hospital Course: Patient is a 78-year-old female with rheumatoid arthritis. She had left tibia and fibula insufficiency fractures and a valgus hindfoot. These underwent catastrophic collapse resulting in severe deformity and subluxation of the ankle joint. She was indicated for tibiotalar calcaneal fusion to correct her ankle and subtalar joint deformities. Postoperatively the patient was admitted to the floor. She had a drain in overnight. This was appropriate to discontinue on postoperative day 1. On postoperative day 1 the patient had some low blood pressures and had difficulty working with physical therapy. Her block was just wearing off and there were issues with pain control. She was switched from outpatient with but observation and peptic overnight for pain control and to further work with physical therapy and arrange home health. Additionally she has some burning in urination and urinalysis showed positive leukocyte Estrace consistent with urinary tract infection. She was started on 3 days of Cipro for this. On postoperative day 2 she was feeling much better and her pain was controlled with oral tramadol. Further assistance was arranged home including home health the patient was appropriate for discharge home with assistance and home health. Status at Discharge Cognitive/behavioral status at discharge: oriented Functional status at discharge: uses cane/walker Overall status at discharge: patient is progressing back to baseline Time Spent with Patient Time spent: Less than 30 minutes Exam Vital Signs (past 8 hours): - 12/09/19 06:17 Temperature 98.5 F Pulse Rate 92 H Respiratory Rate 16 Blood Pressure 130/87 Pulse Oximetry 97 Oxygen Delivery Method Room Air Oxygen Flow Rate 0 Narrative Exam Narrative: Alert oriented female no acute distress. Sitting up in bed eating breakfast. States was quite weak with some low blood pressure yesterday but feeling more ?perky? today HEENT exam normocephalic atraumatic Respiratory exam unlabored on room air Cardiac exam regular rate and rhythm Abdomen soft Musculoskeletal examination. Left lower extremity splint clean dry and intact. Wiggles toes. Sensation intact grossly to light touch. Block wore off during the day yesterday. Patient states pain was pretty rough yesterday but tramadol seems to be controlling it. Calf is soft. Objective Labs Result Diagrams: 12/08/19 04:45 Labs: Laboratory Results - last 24 hr 12/08/19 09:15 Urine Color Yellow Urine Appearance Clear Urine pH 7.0 Ur Specific [place] 1.010 Urine Protein Negative Urine Glucose (UA) Negative Urine Ketones Negative Urine Occult Blood Negative Urine Nitrate Negative Urine Bilirubin Negative Urine Urobilinogen 0.2 Ur Leukocyte Esterase 1+ H Urine RBC None seen Urine WBC 0-1/hpf Ur Squamous Epith Cells 0-1 /hpf Amorphous Sediment 1+ Urine Bacteria None seen Ur Culture Indicated? Specimen cultured Discharge Assessment & Plan Assessment and Plan Assessment: 1. Left ankle insufficiency fractures of the tibia and fibula with malunion. Severe valgus deformity of the ankle and hindfoot with ankle and subtalar arthritis. Status post tibiotalar calcaneal fusion. Nonweightbearing on the left lower extremity. May touch foot down for balance. Keep elevated above the heart level to reduce swelling and pain. Pain control with tramadol. Will have breakthrough Dilaudid p.o. if needed. Take Tylenol to a 1000 mg 3 times a day. May take ibuprofen or Advil Quill and up to ibuprofen 800 mg 3 times a day if needed. Will take aspirin 81 mg b.i.d. for DVT prophylaxis. 2. Acute blood lost postop anemia. Hemoglobin 9.5. Vital signs stable. May add p.o. iron if needed but balance iron narcotics with constipation. Discussed stool softeners. 3. UTI. Three days Cipro p.o. 4. Follow-up as scheduled in orthopedic clinic. Keep splint clean dry and intact. 5. Discharge home today with home health. Plan of Treatment: See above for assessment and plan Discharge Plan Discharge Plan Patient Disposition: Home Discharge Med Rec/Prescriptions Prescriptions: New ondansetron HCl [Zofran] 4 mg tablet 4 mg PO Q8H PRN (Reason: nausea and vomiting) Qty: 10 RF: 1 tramadol 50 mg tablet 50 mg PO Q6H PRN (Reason: pain) Qty: 60 RF: 0 hydromorphone [Dilaudid] 2 mg tablet 2 mg PO Q4H PRN (Reason: pain (scale score 7-10)) Qty: 10 RF: 0 aspirin 81 mg tablet,chewable 81 mg PO BID Qty: 30 RF: 1 docusate sodium [Colace] 100 mg capsule 100 mg PO BID Qty: 30 RF: 1 ciprofloxacin HCl [Cipro] 250 mg tablet 250 mg PO BID 3 Days Qty: 6 RF: 0 ciprofloxacin HCl 250 mg Tablet 250 mg PO BID 2 Days Qty: 4 RF: 0 Continued montelukast [Singulair] 10 mg Tablet 10 mg PO BEDTIME RF: 0 albuterol sulfate 90 mcg/actuation Hfa Aerosol Inhaler 1 - 2 puff INHALATION Q4-6H PRN (Reason: Shortness Of Breath) RF: 0 methotrexate sodium (PF) 25 mg/mL Solution 30 mg SUBCUT QWEEK RF: 0 budesonide-formoterol 160-4.5 mcg/actuation Hfa Aerosol Inhaler 2 puff INHALATION BID RF: 0 levothyroxine 75 mcg Capsule 75 mcg PO DAILY RF: 0 omeprazole 20 mg Capsule,Delayed Release(Dr/Ec) 20 mg PO DAILY RF: 0 Culturelle 10 billion cell Capsule 1 cap PO DAILY RF: 0 Follow up/Referrals: Maria T Daley MD [Physician] - Kang Boone MD [Primary Care Provider] - Discharge Orders: Discharge (Order); Ordered 12/09/19 Ordered By: Maria T Daley Provider Discharge Instructions Diet: Diet as Tolerated Activity: NWB LLE, touch down for balance ok Other treatments: At-Home Instructions - Dr. Daley Surgery: Left ankle deformity correction and tibiotalar calcaneal fusion Cast/Splint/Dressing Care Instructions 1) Keep cast/dressing clean and dry. 2) May bathe - but cast/dressing must remain dry. 3) Should the cast become wet, you need to come into emergency department or call your physician's clinic immediately for cast removal and replacement. Moisture can cause skin breakdown and lead to infection if left untreated. 4) Do not stick any sharp object down the cast to itch, as this can cause scrapes/cuts/punctures which can lead to infection. 6) Observe for increasing pain in the extremity with the cast, finger/toe-tips turning blue/purple, or numbness and tingling in your toes/fingers. Should any of these symptoms arise, you need to be seen immediately for evaluation of swelling and increasing compartment pressures within your affected extremity. 7) Keep your affected extremity elevated - Toes Above your Nose? - This is handy in the first two weeks after surgery to minimize swelling. 8) You may ice your extremity, being careful to prevent melting ice from saturating into the splint/cast. Activity No heavy lifting greater than 10 pounds[address] while on narcotic pain medication. Do not get your dressing/cast/splint wet! You must remain non-weight bearing on your operative extremity. Use crutches or a walker for ambulation. Do not smoke. This will impact her wound and bone healing. No driving until you are otherwise instructed by your physician. This will be addressed at your first follow-up appointment. Discharge Pain Medications You will be given a prescription for pain medication. You should start taking this the same day after your surgery. Wean off as tolerated. Do not wait to take the pain medication until the pain is severe, as it will be difficult to catch up once this occurs. The pain medication usually reaches its full effect ~1 hour after ingesting. If you have been sent home on Colace, this medication should be taken until you are off all narcotic (i.e. Vicodin, tramadol, Percocet, Oxycodone, Dilaudid, etc) pain medications, to prevent constipation. You may also obtain this or another stool softener over the counter to prevent or alleviate constipation. Percocet or Vicodin have Tylenol in their ingredient lists. You must be careful not to exceed 3,000mg (3 grams) of Tylenol, from all sources, within a single 24-hr period. This means that you may not take more than 10 pills within a 24- hr period. Do NOT take Regular or Extra Strength Tylenol when taking your Percocet or Vicodin medications. You may take Tylenol if there taking plain oxycodone, Dilaudid for tramadol. -Some common side effects of the narcotic pain medications (Percocet, Oxycodone, Vicodin, etc.) include nausea and itching. Benadryl is a great over the counter medication that helps calm your stomach, decreases your anxiety levels, and minimizes the itching. You can easily purchase this at your local pharmacy as an [id number] medication. Please abide by the instructions as printed on the bottle. If your nausea persists, make sure to take small amounts of crackers or other trailer park manager foods. Follow-Up/Emergency Contacts Please call for an appointment in either [place] or [place], if one has not been scheduled. Follow up 1 week after surgery. [phone] Contact the office if you have any of the following: ? Painful swelling or numbness ? Unrelenting pain ? Fever (over 101?- it is normal to have a low grade fever for the first day or two following surgery) or chills ? Redness around the incisions ? Color changes ? Continuous bleeding or drainage from the incision (a small amount is expected) ? Excessive nausea or vomiting ? Difficulty breathing If you have an emergency that requires immediate attention, proceed to the nearest emergency room. Blood Clot Prophylaxis You will need to complete a total 6-week (42 days) course of Aspirin (81 mg twice a day) after surgery, to minimize the risk of blood clots following surgery. You may alternatively purchase or use [id number] generic equivalent Aspirin. If you already have ?baby? Aspirin (81mg) at home, you can take 1 ?baby? Aspirin twice a day. Pain Medications: It is the policy of [facility] that narcotic medications will only be refilled during office hours. Additionally, due to the alarming rate of narcotic pain medication abuse/dependence, it has become necessary for physician practices to closely manage patient use of prescription narcotic pain relievers, such as Vicodin ([place]), Percocet, and Oxycodone tramadol or Dilaudid products. Narcotic pain management in the postoperative period may not exceed 6 weeks. If narcotic pain management is required beyond 90 days, then a referral to a Chronic Pain Specialist will be made. If a request for a medication prescription has been made, the physician must review your chart prior to authorizing the request. Please be patient with office staff. If you call during patient hours, your call may not be returned until the end of the day. A visit will be required before a narcotic prescription can be issued. Dr. Maria T Daley [address] [email or web address] Skin/Wound/Dressing Care Report to your healthcare provider any signs of infection, such as:: chills, fever, night sweats, increased pain, unusual drainage and unusual redness Dressing: keep clean dry and intact Visit Report/Discharge Packet Instructions: DI for Prescription Opioid Use, Hydromorphone, Ciprofloxacin Discharge Data Primary Care Provider: Kang Boone Attending Provider: Maria T Daley VTE Deep Vein Thrombosis/Pulmonary Embolism Present on Admission: No
[2019-12-09 09:01] VITALS: PULSE 91; RESP 16; O2SAT 98
[2019-12-09] MEDS: BUDESONIDE FORMOTEROL 2 EACH INH (09:01)
[2019-12-09] MEDS: DOCUSATE 100 MG CAPSULE PO (09:27)
[2019-12-09] MEDS: ASPIRIN EC 81 MG TABLET PO (09:27)
[2019-12-09] MEDS: ACETAMINOPHEN 325 MG TABLET 975 MG PO ×2 (09:27→12:34)
[2019-12-09] MEDS: CIPROFLOXACIN 250 MG TABLET PO (09:28)
[2019-12-09] MEDS: LACTOBACILLUS ACIDOPHILUS TABLET 1 EACH PO (09:28)
--- NOTE | 2019-12-09 11:41 | PT.IPTN ---
Current Diagnoses Rheumatoid arthritis, unspecified (12/07/19) Primary osteoarthritis, left ankle and foot (12/07/19) Primary osteoarthritis, unspecified ankle and foot (12/07/19) Unspecified urinary incontinence (12/07/19) Unspecified abnormal findings in urine (12/07/19) Displaced pilon fracture of left tibia, subsequent encounter for closed fracture with malunion (12/07/19) Surgery Performed Operation Date: 12/07/19 07:45 Actual Procedures p Open ankle fusion & subtalar joint fusion. fibular osteotomy & bone graft autograft or allograft(Left) - Maria T Daley MD Physical Therapy Treatment Note M2 PT-IP Current Condition Start: 12/07/19 16:58 Freq: NEEDED Status: Active Protocol: Document 12/07/19 15:20 AB (Rec: 12/07/19 17:16 AB [id number]) Physical Therapy Current Condition Current Condition Evaluation Date 12/07/19 Treatment Diagnosis s/p L ankle arthrodesis; difficulty in walking Onset Date 12/07/19 Precautions Brace soft cast on LLE Weight Bearing Status Weight Bearing Status Non-Weight Bearing Allowed Weight Bearing Amount (enter % LLE NWB: per Dr. Sharp's or #) (%) order: NWB LLE; foot down for balance ok M3 PT-IP Subjective Start: 12/07/19 16:58 Freq: NEEDED Status: Active Protocol: Document 12/09/19 11:10 CLB (Rec: 12/09/19 12:57 CLB [id number]) Subjective Physical Therapy Visit Type Type Treatment Note Visit Start Time 11:10 Visit Stop Time 11:41 Total Visit Minutes 31 Notes Friend Lance present for CG training. Number of PROVIDER RELATIONS ADVOCATE Visits 2 Physical Therapy Visit Comments Patient Comments pt is agreeable to do PT Therapy Pain Assessment Pain Present Pain Present Denied Pain M4 PT-IP Mobility and Gait Start: 12/07/19 16:58 Freq: NEEDED Status: Active Protocol: Document 12/09/19 11:10 CLB (Rec: 12/09/19 12:57 CLB [id number]) PT-Bed Mobility Assessment Supine to Sit Supine to Sit Standby Assistance Scooting Scooting to Edge of Bed Standby Assistance PT-Transfer Assessment Sit to and From Stand Sit to and from Stand Minimal Assistance,1 Person Assistance,Use of Upper Extremities Equipment Transfer Assistive Device Gait Belt,Front Wheeled Walker Orthotic/Prosthetic Devices or Brace: No Transfers Transfer Destination Chair,Bedside Commode Transfer Technique Stand Pivot Transfer Ability Level of Assist Minimal Assistance,1 Person Assistance,Use of Upper Extremities Comments Mobility Comments Pt able to get to EOB SBA and manage LLE off bed. Pt stood Min A and was able to place leg onto scooter. After demonstration and education pt was able to steer scooter while propelling scooter with RLE ~15ft requiring CGA. Pt then transferred from scooter to chair CGA while bearing wt though RLE and using LLE for balance only. Pt the stood with FWW and CGA from Lance and transferred to BSC then back to chair using stand pivot and assist of Lance. Pt left in chair with all needs within reach and Lance present . Gait Assessment Comments Gait Comments unable at this time d/t pt not able to maintain NWB M5 PT-IP Objective Assessments Start: 12/07/19 16:58 Freq: NEEDED Status: Active Protocol: Document 12/07/19 15:20 AB (Rec: 12/07/19 17:16 AB [id number]) Orientation Orientation/Cognition Level of Alertness Alert Orientation Name,Place,Situation Safety Awareness Decreased Safety Awareness Gross Range of Motion Lower Extremity ROM Assessment Left Impaired Impairments LLE on a soft cast Strength Lower Extremity Strength Assessment Left Impaired Hip 4-/5 Knee 3+/5 Ankle on a soft case; unable to wiggle toes Sensation Assessment Sensation Gross Sensation Left LE Impaired Sensation Description Numbness Comments Sensation Comments c/o numbness on L foot/toes Muscle Tone Muscle Tone WNL Yes M6 PT-IP Treatment Start: 12/07/19 16:58 Freq: NEEDED Status: Active Protocol: Document 12/08/19 13:35 KS (Rec: 12/08/19 14:43 KS [id number]) Physical Therapy Treatment Education Education Provided Precautions,Weight Bearing Status,Safety Other Treatments Other Treatment Performed Switched FWW for shorter size M7 PT-IP Assessment and Plan Start: 12/07/19 16:58 Freq: NEEDED Status: Active Protocol: Document 12/09/19 11:10 CLB (Rec: 12/09/19 12:57 CLB [id number]) PT Summary Assessment and Plan Potential Rehabilitation Potential Fair Status of Condition at Evaluation Evolving Summary Impairments Pain,ROM,Strength,Balance, Coordination,Sensation,Tone, Cognition,Bed Mobility, Transfers,Gait,Activity Tolerance Assessment Summary Pt requires SBA for all bed mobility and Min A for sit<> stand, pt cesar Lucas was able to assist pt with sit<> Stand and transfer to and from Chair>BSC>chair. Pt was provided with education on use of knee scooter and pt was able to manuever Knee scooter requiring CGA. Pt cesar Lucas got WC to assist with getting into house as pt has no stairs through garage. Pt also has FWW, BSC, shower chair and bed rail. Pt's cesar Lucas will stay with pt. Pt will benefit from services. Goals Bed Mobility Goal Independent Transfer Goal Standby Assistance,Front Wheeled Walker Gait Goal Standby Assistance,Front Wheel Walker Gait Distance 50 Other Goals ambulation using knee scooter 100 ft SBA Days to Meet Goals 5 Frequency of Treatment Frequency Of Treatment Twice a Day Treatment Plan Physical Therapy Treatment Plan Bed Mobility Training,Transfer Training,Gait Training, Therapeutic Exercise,Balance Retraining,Post Op Education, Discharge Planning,Hot or Cold Pack,Neuromuscular Re-ed, Coordination Retraining,Manual Therapy Recommendations To Nursing Amount of Assist Needed 1 Person Assist Discharge Recommendations PT Discharge Recommendations Home with 04/10 Assist,Home Health Transportation Needs at Discharge Private Vehicle
[2019-12-09 12:04] VITALS: BP 112/72; PULSE 79; RESP 16; TEMP 36.9; O2SAT 97
--- NOTE | 2019-12-09 13:16 | PC.NURSE ---
Discharge: Pt feels ready to d/c home, MD here and gave d/c instructions, and later MD instructions given to pt to read, she reports she understands them. keller machine operator training completed with PT. Already has rx at home. Reviewed sxs for uti and when she should call. Questions answered. Pt d/c home with friend.
--- NOTE | 2019-12-09 15:19 | CM.DPC ---
DCP continued: EMR Reviewed: TANIA.Rn spoke with Abdoulaye/Shawn torres today about patient D/C home and she signed F2F. Patient D/C home with [facility] . CM/Rn faxed clinicals and F2F to [facility] and spoke with Sharron [phone] and let her know patient was D/C today. TANIA/Rn Faxed D/C summary to [facility] as well. F2F placed into green folder to scan into EMR. no other D/C planning needs noted at this time. Dorothea Rodriguez RN
== END 2019-12-09 13:00 | disposition home or self-care (01) ==
LOC: OR 12-10 14:40 → AC 12-10 14:40
PROVIDERS: Orthopaedic Surgery Adult Reconstructive Orthopaedic Surgery; Admitting Provider Orthopaedic Surgery Foot and Ankle Surgery; Family Provider Family Medicine; PCP Family Medicine; Referring Provider Family Medicine; Visit Provider Orthopaedic Surgery Foot and Ankle Surgery
PROC: (CPT 27870; principal; 2019-12-07 07:45)
DX: S82.872P Displaced pilon fracture of left tibia, subsequent encounter for closed fracture with malunion (principal); M19.072 Primary osteoarthritis, left ankle and foot; M21.42 Flat foot [pes planus] (acquired), left foot; M05.772 Rheumatoid arthritis with rheumatoid factor of left ankle and foot without organ or systems involvement; M21.962 Unspecified acquired deformity of left lower leg; F17.210 Nicotine dependence, cigarettes, uncomplicated; J44.9 Chronic obstructive pulmonary disease, unspecified; K21.9 Gastro-esophageal reflux disease without esophagitis
CPT/HCPCS: 27870; 28725; 27707; 36415; 64450; 73610; 81001; 85027; 87086; 94760; 97162; 97530; G0378; A9270; J0330; J0690; J1100; J1170; J2250; J2405; J2704; J3010

== ENCOUNTER → 2020-05-23 08:22 | Outpatient (CLI) | payer OTHER, SELFPAY ==
[2019-12-08 21:04] VITALS: BMI 26.8
--- NOTE | 2020-05-23 | DI.US.S_ITS ---
PROCEDURE: [facility] VENOUS LOW EXTREM LT INDICATIONS: LEFT LEG PAIN AND SWELLING TECHNIQUE: Real-time imaging, as well as color and pulse Doppler interrogation, were performed of the lower extremity deep veins from the inguinal ligament to the popliteal fossa. COMPARISON: [facility], [facility] VENOUS LOW EXTREM LT, 04/09/2019, 11:43. FINDINGS: The common femoral, femoral and popliteal veins are normally compressible, and free of intraluminal thrombus. Color and pulse Doppler demonstrate normal phasic intraluminal flow. There is normal augmentation response to distal compression maneuver. IMPRESSION: No DVT found. Dictated by: Rony Carrasquillo M.D. on 05/23/2020 at 9:12 Approved by: Rony Carrasquillo M.D. on 05/23/2020 at 9:35
== END ==
PROVIDERS: Family Provider Family Medicine; PCP Physician Assistant Medical; Referring Provider Orthopaedic Surgery; Visit Provider Orthopaedic Surgery
DX: M79.662 Pain in left lower leg (principal); M79.89 Other specified soft tissue disorders
CPT/HCPCS: 93971

== ENCOUNTER 2020-05-30 16:17 | Inpatient (IN) | payer OTHER, SELFPAY ==
[2019-12-08 21:04] VITALS: BMI 26.8
[2020-05-30 16:24] VITALS: BP 185/81; PULSE 87; RESP 16; TEMP 36.1; O2SAT 98; BMI 25.9
--- NOTE | 2020-05-30 16:30 | DI.RAD.S_ITS ---
PROCEDURE: XR ANKLE LT 2V INDICATIONS: Fall, left ankle pain. Plate and screws from previous fusion TECHNIQUE: 2 views of the ankle were acquired. COMPARISON: [facility], CR, XR ANKLE LT MIN 3V, 12/07/2019, 9:42. FINDINGS: Bones: Patient is status post fusion of tibiotalar and subtalar joint with lateral fusion hardware in place. Long fixation screw extending through the length of calcaneus is also noted. There is prior resection of distal fibular. Diffuse osteopenia is seen. No gross acute fracture or dislocation is seen. No gross hardware loosening or failure is noted. Well-defined plantar calcaneal enthesophyte is seen. No fractures or dislocations. Ankle mortise is normally aligned. No suspicious bony lesions. Soft tissues: No tibiotalar joint effusion. Achilles tendon appears normal. IMPRESSION: Extensive post fusion changes in ankle joint as above. No gross hardware loosening or failure. No gross acute fracture or dislocation. Osteoarthritic changes in visualized portion of midfoot and hindfoot joints. Well-defined plantar calcaneal enthesophyte. Dictated by: John Rausch M.D. on 05/30/2020 at 17:08 Approved by: John Rausch M.D. on 05/30/2020 at 17:10
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
--- NOTE | 2020-05-30 17:07 | PC.NURSE ---
foundry technician confirmed fracture, patient uncomfortable in wheelchair. Placed on stretcher and returned to department
--- NOTE | 2020-05-30 17:44 | ED_ITS ---
HPI - Extremity Injury (Lower) General Chief Complaint: Extremity Injury, Lower Stated Complaint: left ankle injury Time Seen by Provider: 05/30/20 17:17 Source: patient Mode of arrival: Family Vehicle Limitations: no limitations History of Present Illness HPI Narrative: Patient is a 79-year-old female with history of rheumatoid arthritis here for evaluation of left leg injury. She was getting into her car where she fell backwards hurting her left leg. She did not hit her head. There was no loss of consciousness. She is not on anticoagulation. Reports no other injury from the event. Related Data Home Medications Medication Instructions Recorded Confirmed albuterol sulfate 1 - 2 puff INHALATION Q4-6H PRN 12/05/19 12/07/19 budesonide-formoterol 2 puff INHALATION BID 12/05/19 12/07/19 levothyroxine 75 mcg PO DAILY 12/05/19 12/07/19 methotrexate sodium (PF) 30 mg SUBCUT QWEEK 12/05/19 12/07/19 montelukast [Singulair] 10 mg PO BEDTIME 12/05/19 12/07/19 Culturelle 1 cap PO DAILY 12/07/19 12/07/19 omeprazole 20 mg PO DAILY 12/07/19 12/07/19 Previous Rx's Medication Instructions Recorded aspirin 81 mg PO BID #30 tab 12/07/19 docusate sodium [Colace] 100 mg PO BID #30 cap 12/07/19 hydromorphone [Dilaudid] 2 mg PO Q4H PRN #10 tab 12/07/19 ondansetron HCl [Zofran] 4 mg PO Q8H PRN #10 tab 12/07/19 tramadol 50 mg PO Q6H PRN #60 tab 12/07/19 Allergies Allergy/AdvReac Type Severity Reaction Status Date / Time cefaclor [From CECLOR] Allergy Severe RASH Verified 05/30/20 16:29 Penicillins [PENICILLINS] Allergy Severe RASH Verified 05/30/20 16:29 celecoxib [From CELEBREX] Allergy Intermediate RACING Verified 05/30/20 16:29 HEART naproxen [From ALEVE] Allergy Intermediate RACING Verified 05/30/20 16:29 HEART prednisone [PREDNISONE] Allergy Intermediate RACING Verified 05/30/20 16:29 HEART clarithromycin [From BIAXIN] Allergy Unknown UNKNOWN Verified 05/30/20 16:29 REACTION PER PT erythromycin base AdvReac Severe FEELS Verified 05/30/20 16:29 [ERYTHROMYCIN BASE] LIKE IT'S EATING A HOLE IN MY STOMACH Review of Systems Constitutional Constitutional: Denies fever(s) and Denies headache(s) ENT Ears, Nose, Mouth, and Throat: Denies headache(s) Cardiovascular Cardiovascular: Denies chest pain and Denies dyspnea Respiratory Respiratory: Denies dyspnea Gastrointestinal Gastrointestinal: Denies abdominal pain, Denies nausea and Denies vomiting Genitourinary Genitourinary: Denies dysuria Genitourinary: Denies dysuria Musculoskeletal Musculoskeletal: Denies myalgias Comments: Left leg pain Integumentary/Breasts Skin/Breast: Denies lesions and Denies rash Neurologic Neurologic: Denies behavioral changes and Denies headache(s) Psychiatric Psychiatric: Denies behavioral changes Hematologic/Lymphatic On Anticoagulants: No Allergic/Immunologic Allergic/Immunologic: Denies urticaria Patient History Medical History Allergic rhinitis Anxiety Asthma Colitis COPD (chronic obstructive pulmonary disease) Dyslipidemia Dyspnea on exertion Edema Emphysema of lung Foot fracture, left GERD (gastroesophageal reflux disease) Herpes zoster Hyponatremia Hypothyroidism Iron deficiency anemia Lung nodule, solitary Osteoarthritis Osteoporosis Pes planus Pneumonia Reactive airway disease Rheumatoid arthritis Scoliosis Sinusitis Toe pain Surgical History History of arthroplasty of right knee (08/2015) History of carpal tunnel release (1997) Hx of oral surgery (1988) Social History household members: none Smoking Status: Current every day smoker alcohol intake: never Smoking Status: Current every day smoker alcohol intake frequency: holidays/special occasions only Substance Use Type: does not use Exam Initial Vital Signs Initial Vital Signs: Vital Signs Temperature 97.0 F L 05/30/20 16:24 Pulse Rate 87 05/30/20 16:24 Respiratory Rate 16 05/30/20 16:24 Blood Pressure 185/81 H 05/30/20 16:24 Pulse Oximetry 98 05/30/20 16:24 Const General: cooperative and comfortable Limitations: mental status not altered HENMT Head: normal to inspection and normocephalic Cardio Pulses: dorsalis pedis present on the left Skin Lesions: no lesions Rashes: no rashes Neuro Sensory Exam: no sensory deficits noted Extrem General: capillary refill normal Psych Appearance: grossly normal and well kempt Procedures Orthopedic Splinting/Casting Injury #1: Side: left Lower Extremity Injury Location: lower leg Lower Extremity Immobilizer: posterior splint Post splinting neuro exam: no change Post splinting vascular exam: no change Placed by: Provider Course Orders Ordered: ED Orders 05/30/20 16:30 XR ankle LT 2V Stat XR tibia fibula LT 2V Stat 05/30/20 18:00 Basic Metabolic Panel Stat Complete Blood Count AUTO DIFF Stat 05/30/20 18:08 CT LE LT wo con Stat 05/30/20 18:33 COVID19 - ADMIT (HYPERTRICHOLOGIST swab/PCR) Stat Sodium Chloride (Normal Saline 0.9%) 1,000 mls @ 125 mls/hr IV CONT FAY Last Admin: 05/30/20 18:10 Dose: 125 mls/hr Documented by: XU Discontinued Medications Morphine Sulfate (Morphine 4 Mg/Ml Inj) 4 mg IV NOW ONE Stop: 05/30/20 17:45 Last Admin: 05/30/20 18:09 Dose: 4 mg Documented by: XU Ondansetron HCl (Ondansetron 4 Mg/2 Ml Inj) 4 mg IV NOW ONE Stop: 05/30/20 17:45 Last Admin: 05/30/20 18:10 Dose: 4 mg Documented by: XU Vital Signs Vital signs: Vital Signs - 8 hr 05/30/20 16:24 Temperature 97.0 F L Pulse Rate 87 Respiratory Rate 16 Blood Pressure 185/81 H Pulse Oximetry 98 MDM - Extremity Injury (Lower) Lab Data Attestation: I reviewed the patient's lab results. Result diagrams: 05/30/20 18:00 05/30/20 18:00 Labs: Lab Results 05/30/20 05/30/20 Range/Units 18:00 18:00 WBC 7.9 (4.5-11.0) X10^3/uL RBC 3.55 L (4.0-5.2) X10^6/uL Hgb 10.4 L (12.0-16.0) g/dL Hct 31.7 L (36-46) % MCV 89.3 (80-100) fL MCH 29.3 (26-34) PG MCHC 32.8 (30-36) % RDW 20.9 H (11.6-14.8) % Plt Count 274 (150-400) X10^3/uL Neut % (Auto) 81.0 H (50-75) % Lymph % (Auto) 9.1 L (25-40) % [place] % (Auto) 7.7 (3-14) % Eos % (Auto) 1.4 L (2-4) % Baso % (Auto) 0.8 (0-2) % Neut # (Auto) 6400 (0984-2642) /uL Lymph # (Auto) 700 L (6770-1203) /uL [place] # (Auto) 600 (0-900) /uL Eos # (Auto) 100 (0-450) /uL Baso # (Auto) 100 (0-100) /uL Platelet Estimate Adequate on smear RBC Morphology See below Hypochromasia 1+ H Anisocytosis 1+ H Microcytosis 1+ H Sodium 131 L (137-145) mmol/L Potassium 4.2 (3.4-5.1) mmol/L Chloride 103 (98-107) mmol/L Carbon Dioxide 22 (22-32) mmol/L BUN 18 H (7-17) mg/dL Creatinine 0.53 (0.52-1.04) mg/dL Estimated GFR > 60.0 (>60) mL/min BUN/Creatinine Ratio 34.0 H (6-22) Glucose 113 H (80-110) mg/dL Calcium 8.9 (8.4-10.2) mg/dL Imaging Data Extremity x-ray #1: Radiologist's Impression: [address] [id number] ReportSigned Patient: Loretta Mayo [facility]#: [id number]: 1940cct:[id number]/Sex: 79 / FDate of Service: 05/30/20Loc: EDAccession Number: [id number] Procedure: XR ankle LT 2V Ordering Provider: Allen Fabian D.O. PROCEDURE: XR ANKLE LT 2V INDICATIONS: Fall, left ankle pain. Plate and screws from previous fusion TECHNIQUE: 2 views of the ankle were acquired. COMPARISON: [facility], CR, XR ANKLE LT MIN 3V, 12/07/2019, 9:42. FINDINGS: Bones: Patient is status post fusion of tibiotalar and subtalar joint with lateral fusion hardware in place. Long fixation screw extending through the length of calcaneus is also noted. There is prior resection of distal fibular. Diffuse osteopenia is seen. No gross acute fracture or dislocation is seen. No gross hardware loosening or failure is noted. Well-defined plantar calcaneal enthesophyte is seen. No fractures or dislocations. Ankle mortise is normally aligned. No suspicious bony lesions. Soft tissues: No tibiotalar joint effusion. Achilles tendon appears normal. IMPRESSION: Extensive post fusion changes in ankle joint as above. No gross hardware loosening or failure. No gross acute fracture or dislocation. Osteoarthritic changes in visualized portion of midfoot and hindfoot joints. Well-defined plantar calcaneal enthesophyte. Dictated by: John Rausch M.D. on 05/30/2020 at 17:08 Approved by: John Rausch M.D. on 05/30/2020 at 17:10 Extremity x-ray #2: Radiologist's Impression: [address] [id number] ReportSigned Patient: Loretta Mayo [facility]#: [id number]: 3Acct:[id number]/Sex: 79 / FDate of Service: 05/30/20Loc: EDAccession Number: [id number] Procedure: XR tibia fibula LT 2V Ordering Provider: Allen Fabian D.O. PROCEDURE: XR TIBIA FIBULA LT 2V INDICATIONS: fall out of car TECHNIQUE: 3 views of the tibia and fibula were acquired. COMPARISON: None. FINDINGS: Bones: Acute oblique fracture involving proximal tibial shaft is seen with dorsal angulation at fracture site. Minimal anterior and lateral displacement is also seen. No other fracture or dislocation. Moderate tricompartmental osteoarthritis in left knee is seen. No suspicious bony lesions. Soft tissues: No suspicious soft tissue calcifications or masses. IMPRESSION: Acute slightly displaced proximal tibial shaft fracture as above. Dictated by: John Rausch M.D. on 05/30/2020 at 17:10 Approved by: John Rausch M.D. on 05/30/2020 at 17:11 [facility] Narrative Medical decision making narrative: Patient does have a midshaft tibial fracture. She reports no other injuries from the event and no other injuries were found on the exam. This does appear to be a mechanical fall. She is neurovascularly intact distal. Patient was seen by Orthopedics here in the emergency department. Plan to be is to admit for surgical treatment tomorrow. Splint was applied here in the ER. Discussed this with the patient and family or bedside. They expressed understanding agreement Discharge Plan Departure Patient Disposition: Admitted As Inpatient Clinical Impression: Closed tibia fracture Admit Date/Time: 05/30/20 18:31 Admit Provider: Jeramie Elizalde
--- NOTE | 2020-05-30 17:53 | PM.HP.1 ---
History of Present Illness History of Present Illness Date Patient Seen: 05/30/20 Time Patient Seen: 17:53 Date of Onset of Symptoms: 05/30/20 Chief complaint: left ankle injury Narrative: This is an unfortunate 79-year-old female with a longstanding history of rheumatoid arthritis of about 20 years. She has known severe osteoporosis. She had a severe deformity of her left ankle with valgus stress fracture and severe osteoporosis. She also has known severe left knee osteoarthritis. She underwent an and extensive left ankle fusion. She has been out of her boot for a while and ambulating but unfortunately her left knee flared up. She had was seen recently and schedule for possible left knee arthroplasty. She has a CT scan of her left ankle ordered for Tuesday to see of her fusion is healed. She was taken to trying to drive herself to the store today when her foot got caught and she fell backwards and heard a snap in her left leg. She noted the acute onset of pain and deformity. Patient History Medical History Allergic rhinitis Anxiety Asthma Colitis COPD (chronic obstructive pulmonary disease) Dyslipidemia Dyspnea on exertion Edema Emphysema of lung Foot fracture, left GERD (gastroesophageal reflux disease) Herpes zoster Hyponatremia Hypothyroidism Iron deficiency anemia Lung nodule, solitary Osteoarthritis Osteoporosis Pes planus Pneumonia Reactive airway disease Rheumatoid arthritis Scoliosis Sinusitis Toe pain Surgical History History of arthroplasty of right knee (08/2015) History of carpal tunnel release (1997) Hx of oral surgery (1988) Family & Social History Social History: household members none Safety & Behavioral: Feels Safe in Current Yes Environment Been Physically Hurt or No Threatened By a Person Tobacco & Substance use: Smoking Status Current every day smoker alcohol intake never alcohol intake frequency holiday/special occasion Substance Use Type does not use Meds Home Medications and Allergies Home Medications Medication Instructions Recorded Confirmed Type albuterol sulfate 1 - 2 puff INHALATION Q4-6H PRN 12/05/19 12/07/19 History budesonide-formoterol 2 puff INHALATION BID 12/05/19 12/07/19 History levothyroxine 75 mcg PO DAILY 12/05/19 12/07/19 History methotrexate sodium (PF) 30 mg SUBCUT QWEEK 12/05/19 12/07/19 History montelukast [Singulair] 10 mg PO BEDTIME 12/05/19 12/07/19 History Culturelle 1 cap PO DAILY 12/07/19 12/07/19 History aspirin 81 mg PO BID #30 tab 12/07/19 Rx docusate sodium [Colace] 100 mg PO BID #30 cap 12/07/19 Rx hydromorphone [Dilaudid] 2 mg PO Q4H PRN #10 tab 12/07/19 Rx omeprazole 20 mg PO DAILY 12/07/19 12/07/19 History ondansetron HCl [Zofran] 4 mg PO Q8H PRN #10 tab 12/07/19 Rx tramadol 50 mg PO Q6H PRN #60 tab 12/07/19 Rx Allergies Allergy/AdvReac Type Severity Reaction Status Date / Time cefaclor [From CECLOR] Allergy Severe RASH Verified 05/30/20 16:29 Penicillins [PENICILLINS] Allergy Severe RASH Verified 05/30/20 16:29 celecoxib [From CELEBREX] Allergy Intermediate RACING Verified 05/30/20 16:29 HEART naproxen [From ALEVE] Allergy Intermediate RACING Verified 05/30/20 16:29 HEART prednisone [PREDNISONE] Allergy Intermediate RACING Verified 05/30/20 16:29 HEART clarithromycin [From BIAXIN] Allergy Unknown UNKNOWN Verified 05/30/20 16:29 REACTION PER PT erythromycin base AdvReac Severe FEELS Verified 05/30/20 16:29 [ERYTHROMYCIN BASE] LIKE IT'S EATING A HOLE IN MY STOMACH Review of Systems Review of Systems Narrative: She denies she was not short of breath or lightheaded prior to her fall, she denies a history of dizziness or lightheadedness and did not have any cardiac symptoms prior to her fall. Exam Vital Signs (past 8 hours): - 05/30/20 16:24 Temperature 97.0 F L Pulse Rate 87 Respiratory Rate 16 Blood Pressure 185/81 H Pulse Oximetry 98 Oxygen Delivery Method Room Air Narrative Exam Narrative: HEENT is benign she is alert she is oriented she is appropriate lungs are clear cor regular rate and rhythm abdomen soft benign examination of her left lower extremity shows a well-healed scar, skin is intact over the midshaft of her tibia there is obvious deformity and swelling of the tibia foot is warm and viable she has slight decreased sensation distally. Objective Labs Labs: X-rays show a displaced midshaft left tibia fracture with gross malalignment. There is retained internal fixation distally at her ankle. I also reviewed prior x-rays including knee x-rays and ankle x-rays prior to her fusion she had severe valgus deformity and severe osteoporosis. Assessment & Plan Assessment & Plan narrative: Extremely complex problem with a midshaft tibia fracture and ankle fusion with retained internal fixation severe osteoporosis and severe knee arthritis with valgus deformity as well as rheumatoid arthritis. I have recommended that we place her in a long-leg splint. I a think she needs is to get her CT scan of her left ankle to evaluate the fusion and assess whether not her left ankle is healing. She is a candidate for intramedullary nailing of her left tibia. The difficulty is to get an nail that all fit and still a lower ultimately to have a total knee arthroplasty. She also will repeat likely require some removal of internal fixation. The options are either a retrograde nail or an antegrade nail. I think likely she is a candidate for antegrade nailing but we will look at the CT scan of her ankle to assess whether not her ankle is fusion is healing. She requires inpatient admission she has got rheumatoid arthritis multiple medical problems and a very complicated left lower extremity problem. Quality MIPS - Admit Advanced Care Plan / Current Medications Measures: #47 ? Advanced Care Plan Clinician documentation instruction: document at admission. [] I confirmed that the patient's Advance Care Plan is present, code status is documented, or surrogate decision maker is listed in the patient?s medical record. [SATISFIES MIPS PERFORMANCE] If Yes, Stop Here [] The patient?s Advance Care plan is not present because: (select) [MIPS PERFORMANCE EXCEPTION/EXCLUSION] [] I confirmed today that the patient does not wish or was not able to name a surrogate decision maker or provide an Advance Care Plan. [] Hospice care is currently being provided or has been provided this calendar year [] I did NOT confirm today the presence of an Advance Care Plan or surrogate decision maker documented within the patient's medical record. [DOES NOT SATISFY MIPS PERFORMANCE] #130 - Documentation of Current Medications in the Medical Record Clinician documentation instruction: use macro the first time you see a patient. [] I have utilized all available immediate resources to obtain, update, or review the patient?s current medications. [SATISFIES MIPS PERFORMANCE] If Yes, Stop Here [] The patient is not eligible for medication reconciliation; the patient is in an emergent medical situation where delaying treatment would jeopardize the patient?s health. [MIPS PERFORMANCE EXCEPTION/EXCLUSION] [] I did NOT confirm, update or review the patient's current list of medications today. [DOES NOT SATISFY MIPS PERFORMANCE] MIPS - CL Central Venous Catheter Placement Measure: #76 ? Prevention of Central Venous Catheter (CVC) ? Related Bloodstream Infection Clinician documentation instruction: use macro every time you place a central line. [] All elements of Maximal Sterile Barrier Technique, including hand hygiene, skin prep, and sterile ultrasound technique (if used) were followed. [SATISFIES MIPS PERFORMANCE] If Yes, Stop Here [] If ?No?, the medical reason all elements were NOT used for medical reason [] (ex. emergent condition). [] Maximal Sterile Barrier Technique was not followed, no reason provided [DOES NOT SATISFY MIPS PERFORMANCE] MIPS - DC Heart Failure Measures: #5 - Heart Failure (HF): Angiotensin-Converting Enzyme (HORACIO) Inhibitor or Angiotensin Receptor Stevie (ARB) Therapy for Left Ventricular Systolic Dysfunction (LVSD) and #8 - Heart Failure (HF): Beta-Stevie Therapy for Left Ventricular Systolic Dysfunction (LVSD) Clinician documentation instruction: use macro at every CHF discharge. [] The patient has current or prior documentation of left ventricular ejection fraction (LVEF) less than 40%, or moderate or severely depressed left ventricular systolic function. Answer both: [SATISFIES MIPS PERFORMANCE] [] The patient was prescribed or already taking an Angiotensin-Converting Enzyme (HORACIO) Inhibitor, or Angiotensin Receptor Stevie (ARB). [] The patient was prescribed or already taking a beta-stevie. If Yes to Both, Stop Here [] Patient not prescribed/taking: [MIPS PERFORMANCE EXCEPTION/EXCLUSION] [] HORACIO or ARB for medical/patient/system reason(s) including [] (ex. allergy, intolerance, contraindication) [] Beta-stevie for medical/patient/system reason(s) including [] (ex. allergy, intolerance, contraindication) [] Patient not prescribed/taking: [DOES NOT SATISFY MIPS PERFORMANCE] [] HORACIO or ARB, no reason given [] Beta-stevie, no reason given
[2020-05-30 18:07] LABS: Add Manual Diff / Slide Review NO; Basophils Absolute Auto 100 /uL (0-100); Basophils Percent Auto 0.8 % (0-2); Eosinophils Absolute Auto 100 /uL (0-450); Eosinophils Percent Auto 1.4 % (2-4); Hematocrit 31.7 % (36-46); Hemoglobin 10.4 g/dL (12.0-16.0); Lymphocytes Absolute Auto 700 /uL (1100-4500); Lymphocytes Percent Auto 9.1 % (25-40); Mean Corpuscular HGB Conc 32.8 % (30-36); Mean Corpuscular Hemoglobin 29.3 PG (26-34); Mean Corpuscular Volume 89.3 fL (80-100); Monocytes Absolute Auto 600 /uL (0-900); Monocytes Percent Auto 7.7 % (3-14); Neutrophils Absolute Auto 6400 /uL (1500-7000); Platelet Count 274 X10^3/uL (150-400); Red Blood Cell Count 3.55 X10^6/uL (4.0-5.2); Red Cell Distribution Width 20.9 % (11.6-14.8); White Blood Cell Count 7.9 X10^3/uL (4.5-11.0)
--- NOTE | 2020-05-30 18:08 | DI.CT.S_ITS ---
PROCEDURE: CT LE LT W CON INDICATIONS: Ortho would like CT of ankle TECHNIQUE: Noncontrast 3-mm axial sections acquired from the distal tibial shaft to the talar dome, with coronal and sagittal reformats.. COMPARISON: [facility], CR, XR TIBIA FIBULA LT 2V, 05/30/2020, 16:43. [facility], CR, XR ANKLE LT 2V, 05/30/2020, 16:43. [facility], CT, CT LE LT WO CON, 02/28/2019, 9:57. FINDINGS: Image quality: Diagnostic, significant beam hardening artifacts from lower leg fusion hardware is seen slightly limits the evaluation. Bones: As seen on earlier lower leg radiograph, there is an acute comminuted oblique fracture involving proximal to mid tibial shaft with slight dorsal angulation at fracture site and up to 7 mm lateral displacement at fracture site. There is prior resection of distal fibular shaft and extensive fusion of tibiotalar joint and subtalar joint. Long fixation screw extending the length of calcaneus is also seen. Diffuse osteopenia is noted, osteoarthritic changes are noted throughout left foot. No definite acute fracture or dislocation is seen in ankle or foot. No gross hardware loosening or failure is noted. No suspicious intraosseous lesion. Moderate to severe tricompartmental osteoarthritis in left knee is seen. Soft tissues: There is extensive soft tissue swelling and edema throughout left lower leg extending to ankle and hindfoot. There is suggestion of small to moderate amount of suprapatellar joint effusion. No abnormal soft tissue calcification is seen. Visualized portion of quadriceps tendon and patellar tendon are intact. Achilles tendon is grossly intact. Plantar fascia is within normal limits. IMPRESSION: 1. Acute comminuted and slightly displaced proximal to mid tibial shaft fracture as described above. No other definite acute fracture or dislocation is seen. 2. Extensive fusion of tibiotalar joint and subtalar joint with surgical hardware in place. No gross hardware loosening or failure. Diffuse osteopenia. No suspicious intraosseous lesion. Osteoarthritic changes are noted throughout left foot. Prior resection of distal fibular shaft. 3. Extensive soft tissue swelling and edema throughout left lower leg. Moderate to severe left knee joint osteoarthritis with small joint effusion. Dictated by: John Rausch M.D. on 05/30/2020 at 19:21 Approved by: John Rausch M.D. on 05/30/2020 at 19:29
[2020-05-30] MEDS: MORPHINE 4 MG/ML INJ IV (18:09)
[2020-05-30] MEDS: SODIUM CHLORIDE 0.9% 1,000 ML 125 ML IV (18:10)
[2020-05-30] MEDS: ONDANSETRON 4 MG/2 ML INJ IV (18:10)
[2020-05-30 18:22] LABS: Blood Urea Nitrogen 18 mg/dL (7-17); Calcium 8.9 mg/dL (8.4-10.2); Carbon Dioxide 22 mmol/L (22-32); Chloride 103 mmol/L (98-107); Estimated Glomerular Filt Rate > 60.0 mL/min (>60); Glucose 113 mg/dL (80-110); HEMOLYSIS < 15 (0-50); Potassium 4.2 mmol/L (3.4-5.1); Sodium 131 mmol/L (137-145)
--- NOTE | 2020-05-30 18:29 | PC.NURSE ---
Pt states she fell backwards getting into the car. denies hitting her head, denies LOC or blood thinners. has a deformed tibia on the L side. IV placed and medicated per MAY. Dr Rodriguez in to see. plan for surgery tomorrow. Splinted with assistance from Dr Fabian
[2020-05-30 18:31] LABS: Anisocytosis 1+; Platelet Estimate Adequate on smear
[2020-05-30 18:32] VITALS: BP 174/87; PULSE 78; O2SAT 94
[2020-05-30 18:32] LABS: Hypochromasia 1+; Microcytosis 1+
[2020-05-30 19:15] VITALS: BP 166/81; PULSE 88; RESP 18; TEMP 36; O2SAT 97
[2020-05-30 19:41] LABS: COVID19 - ADMIT (NP swab/PCR) Negative (Negative)
[2020-05-30 20:28] VITALS: BMI 25.9
--- NOTE | 2020-05-30 22:04 | PC.ADMIT ---
2119 [facility] Admission Note: The patient,Loretta Mayo,79 y/o, was given written information regarding hospital policies, unit procedures and contact persons. Patient's smoking status: Former smoker. Pt arrived from ED via stretcher at approx 1915. Alert and Oriented. Oriented to room and Call system. Bed alarm placed on. Pt verbalized she will call for needs. Vital Signs - 8 hr 05/30/20 16:24 05/30/20 18:32 05/30/20 19:15 Temperature 97.0 F L 96.8 F L Pulse Rate 87 78 88 Respiratory Rate 16 18 Blood Pressure 185/81 H 174/87 H 166/81 H Pulse Oximetry 98 94 97
[2020-05-30 22:09] LABS: RBC Urine None Seen (0-5/HPF); WBC Urine None Seen (0-5/HPF)
[2020-05-30 22:11] LABS: Bilirubin Urine UA NEGATIVE (NEGATIVE); Color Urine UA YELLOW; Glucose Urine UA NEGATIVE (Negative); Ketones Urine UA TRACE (NEGATIVE); Leukocyte Esterase Urine UA NEGATIVE (NEGATIVE); Nitrite Urine UA NEGATIVE (Negative); Occult Blood Urine UA NEGATIVE (Negative); Protein Urine UA NEGATIVE (Negative); Urobilinogen Urine UA 0.2 E.U./dL (0.2)
[2020-05-30 22:15] LABS: Appearance Urine UA Cloudy; pH Urine UA 6.5 (4.5-8.0)
[2020-05-30 22:22] LABS: Amorphous Sediment Urine 3+
[2020-05-30 22:23] LABS: Bacteria Urine Occasional (0-1); Culture Indicated Urine Cult Not Indicated; Squamous Epithelial Cell Urine 0-1 /HPF (0-5/HPF)
--- NOTE | 2020-05-30 23:03 | PM.HP.1 ---
History of Present Illness History of Present Illness Date Patient Seen: 05/30/20 Time Patient Seen: 21:00 Chief complaint: left ankle injury Narrative: Loretta Mayo is 79-year-old female with a longstanding history of rheumatoid arthritis of about 20 years, severe osteoporosis, and severe left knee osteoarthritis, presented today after a mechanical fall at home resulting in a left sided tibial fracture. She was trying to drive herself to the store today when her foot got caught and she fell backwards and heard a snap in her left leg. She noted the acute onset of pain and deformity. She denies losing consciousness or hitting her head, denies shortness of breath, chest pain,, denies nausea or vomiting, she does endorse urinary frequency but would prefer not to have a catheter placed, denies diarrhea or constipation. In November of 2019 she underwent tibiotalar calcaneal fusion to correct her ankle and subtalar joint deformities by Dr. Ni. She has been out of her boot for a while and ambulating but unfortunately her left knee flared up. She had was seen recently and schedule for possible left knee arthroplasty. She has a CT scan of her left ankle ordered for Tuesday to see of her fusion is healed. In the ED, xray indicated an acute comminuted and slightly displaced proximal to mid tibial shaft fracture. She was seen by Dr. Tiffany Rodriguez who plans to take her into the OR for internal fixation by intermedullary nailing of the left tibia. Patient is afebrile, blood pressure 166/81, heart rate 88, respiratory rate 18, oxygen saturation of 97% on room air she weighs 70 kg with a BMI of 27.9. WBC is 7.9, RBC 3.55, hemoglobin 10.4, hematocrit 31.7, platelet count 274, sodium 131, glucose is 113, UA is negative for UTI and COVID-19 PCR is negative. Patient self administers methotrexate 25 mg every Tuesday and has requested that she be able to do so while she is here. Patient has a stated history of hypothyroidism and just recently had her TSH drawn and her levothyroxine was reduced from 100 mcg to 75 mcg for which she takes at bedtime. Patient History Medical History Allergic rhinitis Anxiety Asthma Colitis COPD (chronic obstructive pulmonary disease) Dyslipidemia Dyspnea on exertion Edema Emphysema of lung Foot fracture, left GERD (gastroesophageal reflux disease) Herpes zoster Hyponatremia Hypothyroidism Iron deficiency anemia Lung nodule, solitary Osteoarthritis Osteoporosis Pes planus Pneumonia Reactive airway disease Rheumatoid arthritis Scoliosis Sinusitis Toe pain Surgical History History of arthroplasty of right knee (08/2015) History of carpal tunnel release (1997) Hx of oral surgery (1988) Family & Social History Family History (Updated 05/30/20 @ 23:25 by HENNY Coyne) Mother Breast cancer Father Crohn's disease Macular degeneration COPD (chronic obstructive pulmonary disease) Social History: household members none Safety & Behavioral: Feels Safe in Current Yes Environment Been Physically Hurt or No Threatened By a Person Suicidal Ideation Description None Tobacco & Substance use: Smoking Status Former smoker 25 year pack history alcohol intake current alcohol intake frequency holiday/special occasion Substance Use Type does not use Meds Home Medications and Allergies Home Medications Medication Instructions Recorded Confirmed Type albuterol sulfate [ProAir HFA] 1 - 2 puff INHALATION Q4-6H PRN 12/05/19 05/30/20 History budesonide-formoterol [Symbicort] 2 puff INHALATION BID PRN 12/05/19 05/30/20 History levothyroxine 75 mcg PO BEDTIME 12/05/19 05/30/20 History methotrexate sodium (PF) 25 mg SUBCUT QWEEK 12/05/19 05/30/20 History montelukast [Singulair] 10 mg PO BEDTIME 12/05/19 05/30/20 History Culturelle 1 cap PO DAILY 12/07/19 05/30/20 History aspirin 81 mg PO BID #30 tab 12/07/19 Rx hydromorphone [Dilaudid] 2 mg PO Q4H PRN #10 tab 12/07/19 Rx omeprazole 20 mg PO DAILY 12/07/19 05/30/20 History ondansetron HCl [Zofran] 4 mg PO Q8H PRN #10 tab 12/07/19 Rx docusate sodium [Colace] 100 mg PO BID PRN 05/30/20 05/30/20 History tramadol [Ultram] 50 mg PO Q6H PRN 05/30/20 History Allergies Allergy/AdvReac Type Severity Reaction Status Date / Time cefaclor [From CECLOR] Allergy Severe RASH Verified 05/30/20 16:29 Penicillins [PENICILLINS] Allergy Severe RASH Verified 05/30/20 16:29 celecoxib [From CELEBREX] Allergy Intermediate RACING Verified 05/30/20 16:29 HEART naproxen [From ALEVE] Allergy Intermediate RACING Verified 05/30/20 16:29 HEART prednisone [PREDNISONE] Allergy Intermediate RACING Verified 05/30/20 16:29 HEART clarithromycin [From BIAXIN] Allergy Unknown UNKNOWN Verified 05/30/20 16:29 REACTION PER PT erythromycin base AdvReac Severe FEELS Verified 05/30/20 16:29 [ERYTHROMYCIN BASE] LIKE IT'S EATING A HOLE IN MY STOMACH Review of Systems Review of Systems ROS: Yes All systems reviewed with the patient and are negative except as otherwise documented Exam Vital Signs (past 8 hours): - 05/30/20 16:24 05/30/20 18:32 05/30/20 19:15 Temperature 97.0 F L 96.8 F L Pulse Rate 87 78 88 Respiratory Rate 16 18 Blood Pressure 185/81 H 174/87 H 166/81 H Pulse Oximetry 98 94 97 Oxygen Delivery Method Room Air Narrative Exam Narrative: Gen: Alert, oriented, well-developed 79 y.o. female, mildly and understandably irritated HEENT: normocephalic, atraumatic, conjunctiva clear, sclera non-icteric, oral mucosa pink and moist Neck: supple, full ROM, no JVD, trachea is midline Resp: Lungs CTA, non-labored breathing CV: RRR, no murmur or rubs Abd: soft, non-tender, normoactive BTs Skin: no lesions or rashes, dry and intact Neuro: Alert and oriented X 4 w/no focal deficits. Speech clear and coherent. Extremities: Left leg is in closed in a large splint and elevated Psyche: normal mood and affect Objective Labs Result Diagrams: 05/30/20 18:00 05/30/20 18:00 Labs: Laboratory Results - last 24 hr 05/30/20 05/30/20 05/30/20 18:00 18:00 18:33 WBC 7.9 RBC 3.55 L Hgb 10.4 L Hct 31.7 L MCV 89.3 MCH 29.3 MCHC 32.8 RDW 20.9 H Plt Count 274 Neut % (Auto) 81.0 H Lymph % (Auto) 9.1 L [place] % (Auto) 7.7 Eos % (Auto) 1.4 L Baso % (Auto) 0.8 Neut # (Auto) 6400 Lymph # (Auto) 700 L [place] # (Auto) 600 Eos # (Auto) 100 Baso # (Auto) 100 Platelet Estimate Adequate on smear RBC Morphology See below Hypochromasia 1+ H Anisocytosis 1+ H Microcytosis 1+ H Sodium 131 L Potassium 4.2 Chloride 103 Carbon Dioxide 22 BUN 18 H Creatinine 0.53 Estimated GFR > 60.0 BUN/Creatinine Ratio 34.0 H Glucose 113 H Calcium 8.9 Urine Color Urine Appearance Urine pH Ur Specific [place] Urine Protein Urine Glucose (UA) Urine Ketones Urine Occult Blood Urine Nitrate Urine Bilirubin Urine Urobilinogen Ur Leukocyte Esterase Urine RBC Urine WBC Ur Squamous Epith Cells Amorphous Sediment Urine Bacteria Ur Culture Indicated? SARS-CoV-2 (PCR) Negative 05/30/20 21:50 WBC RBC Hgb Hct MCV MCH MCHC RDW Plt Count Neut % (Auto) Lymph % (Auto) [place] % (Auto) Eos % (Auto) Baso % (Auto) Neut # (Auto) Lymph # (Auto) [place] # (Auto) Eos # (Auto) Baso # (Auto) Platelet Estimate RBC Morphology Hypochromasia Anisocytosis Microcytosis Sodium Potassium Chloride Carbon Dioxide BUN Creatinine Estimated GFR BUN/Creatinine Ratio Glucose Calcium Urine Color Yellow Urine Appearance Cloudy Urine pH 6.5 Ur Specific [place] 1.010 Urine Protein Negative Urine Glucose (UA) Negative Urine Ketones Trace H Urine Occult Blood Negative Urine Nitrate Negative Urine Bilirubin Negative Urine Urobilinogen 0.2 Ur Leukocyte Esterase Negative Urine RBC None seen Urine WBC None seen Ur Squamous Epith Cells 0-1 /hpf Amorphous Sediment 3+ Urine Bacteria Occasional (0-1) Ur Culture Indicated? Cult not indicated SARS-CoV-2 (PCR) Assessment & Plan Assessment & Plan narrative: Loretta Mayo is admitted for operative treatment of a left-sided tibial fracture. She was seen in the ED by Dr. Rodriguez. Left-sided tibial fracture, acute, present on admission -pain controlled with Dilaudid and morphine -Dr. Rodriguez to taken to the OR tomorrow for intramedullary nailing -aspirin is discontinued for now -NPO except meds after midnight Rheumatoid arthritis, chronic -she administers methotrexate 25 mg subQ weekly on Sundays -I have requested pharmacy consult so that she may be allowed to do so and if not will administer this medication to her on Tuesday if she is likely distal be in-house Hypothyroidism, chronic -she will take levothyroxine 75 mcg at bedtime GERD, chronic -normally takes omeprazole and will substitute with Protonix 20 mg p.o. daily Probable chronic COPD -she will continue albuterol MDI 2 puffs every 4 hours as needed for wheezing or shortness of breath Urinary frequency, present on admission -U/A negative for a UTI -likely due to IV fluids -Parrish will likely be placed in pre-op area VTE prophylaxis: Wells risk score: 0 SCD on right leg Consults: Dr. Rodriguez Orthopedics consult and involvement is appreciated. Patient is admitted under inpatient status with expected length of stay greater than 2 midnights due to severity of presenting symptoms, risk of adverse event, and complexity of treatment plan. FEN: NS at 100 ml/hour, general diet, NPO except meds after midnight, BMP and magnesium in the am. Dispo: either home or rehab Code Status: Full code as discussed with patient and Adrin, surrogate and daughter Scores Wells' Criteria for PE Clinical signs and symptoms of DVT: No PE is #1 Dx or equally likely: No Heart rate > 100: No Immobilization at least 3 days or surg in previous 4 weeks: No History of PE or DVT: No Hemoptysis: No Malignancy w/Treatment within 6 months or palliative: No Wells' PE Score total: 0 Quality MIPS - Admit Advanced Care Plan / Current Medications Measures: #47 ? Advanced Care Plan Clinician documentation instruction: document at admission. X I confirmed that the patient's Advance Care Plan is presentand in the chart, code status is documented, or surrogate decision maker is listed in the patient?s medical record. If Yes, Stop Here [] The patient?s Advance Care plan is not present because: (select) [MIPS PERFORMANCE EXCEPTION/EXCLUSION] [] I confirmed today that the patient does not wish or was not able to name a surrogate decision maker or provide an Advance Care Plan. [] Hospice care is currently being provided or has been provided this calendar year [] I did NOT confirm today the presence of an Advance Care Plan or surrogate decision maker documented within the patient's medical record. [DOES NOT SATISFY MIPS PERFORMANCE] #130 - Documentation of Current Medications in the Medical Record Clinician documentation instruction: use macro the first time you see a patient. X I have utilized all available immediate resources to obtain, update, or review the patient?s current medications. If Yes, Stop Here [] The patient is not eligible for medication reconciliation; the patient is in an emergent medical situation where delaying treatment would jeopardize the patient?s health. [MIPS PERFORMANCE EXCEPTION/EXCLUSION] [] I did NOT confirm, update or review the patient's current list of medications today. [DOES NOT SATISFY MIPS PERFORMANCE] MIPS - CL Central Venous Catheter Placement Measure: #76 ? Prevention of Central Venous Catheter (CVC) ? Related Bloodstream Infection Clinician documentation instruction: use macro every time you place a central line. [] All elements of Maximal Sterile Barrier Technique, including hand hygiene, skin prep, and sterile ultrasound technique (if used) were followed. [SATISFIES MIPS PERFORMANCE] If Yes, Stop Here [] If ?No?, the medical reason all elements were NOT used for medical reason [] (ex. emergent condition). [] Maximal Sterile Barrier Technique was not followed, no reason provided [DOES NOT SATISFY MIPS PERFORMANCE] MIPS - DC Heart Failure Measures: #5 - Heart Failure (HF): Angiotensin-Converting Enzyme (HORACIO) Inhibitor or Angiotensin Receptor Stevie (ARB) Therapy for Left Ventricular Systolic Dysfunction (LVSD) and #8 - Heart Failure (HF): Beta-Stevie Therapy for Left Ventricular Systolic Dysfunction (LVSD) Clinician documentation instruction: use macro at every CHF discharge. [] The patient has current or prior documentation of left ventricular ejection fraction (LVEF) less than 40%, or moderate or severely depressed left ventricular systolic function. Answer both: [SATISFIES MIPS PERFORMANCE] [] The patient was prescribed or already taking an Angiotensin-Converting Enzyme (HORACIO) Inhibitor, or Angiotensin Receptor Stevie (ARB). [] The patient was prescribed or already taking a beta-stevie. If Yes to Both, Stop Here [] Patient not prescribed/taking: [MIPS PERFORMANCE EXCEPTION/EXCLUSION] [] HORACIO or ARB for medical/patient/system reason(s) including [] (ex. allergy, intolerance, contraindication) [] Beta-stevie for medical/patient/system reason(s) including [] (ex. allergy, intolerance, contraindication) [] Patient not prescribed/taking: [DOES NOT SATISFY MIPS PERFORMANCE] [] HORACIO or ARB, no reason given [] Beta-stevie, no reason given
[2020-05-30] MEDS: MORPHINE 2 MG/ML INJ IV (23:49)
[2020-05-30] MEDS: MONTELUKAST 10 MG TABLET PO (23:49)
[2020-05-30] MEDS: LEVOTHYROXINE 75 MCG TABLET PO (23:49)
[2020-05-30] MEDS: DOCUSATE 100 MG CAPSULE PO (23:49)
[2020-05-31] VITALS (24 sets, daily range): BP systolic 110–162; BP diastolic 59–96; PULSE 75–113; RESP 13–18; TEMP 35.8–37.5; O2SAT 89–100; BMI 28.2
--- NOTE | 2020-05-31 | DI.RAD.S_ITS ---
PROCEDURE: XR TIBIA FIBULA LT 2V INDICATIONS: ORIF LEFT TIBIAL NAILING TECHNIQUE: Intraoperative images of the left tibia and fibula. COMPARISON: [facility], CR, XR TIBIA FIBULA LT 2V, 05/30/2020, 16:43. FINDINGS: Intraoperative guidance for left intramedullary margie and screw fixation. Prior left ankle ORIF. IMPRESSION: Intraoperative guidance provided. Dictated by: Nir Gottlieb M.D. on 05/31/2020 at 17:51 Approved by: Nir Gottlieb M.D. on 05/31/2020 at 17:52
--- NOTE | 2020-05-31 | DI.RAD.S_ITS ---
PROCEDURE: XR TIBIA FIBULA LT 2V INDICATIONS: ORIF POST OP TECHNIQUE: 2 views of the tibia and fibula were acquired. COMPARISON: CT 05/30/2020 FINDINGS: Postsurgical changes related to proximal left tibia ORIF. Improved alignment of fracture fragments. Unchanged left distal fibular resection changes and buttress plate and screw hardware construct in the distal tibia. IMPRESSION: Postsurgical changes of interval proximal left tibia ORIF. No acute complicating feature. Alignment is improved. Dictated by: Luis Angel Sagastume M.D. on 05/31/2020 at 18:58 Approved by: Luis Angel Sagastume M.D. on 05/31/2020 at 18:59
--- NOTE | 2020-05-31 00:06 | PC.NURSE ---
Admit/Evening Shift Note- Patient arrived to room via stretcher [facility] at 1915. Patient alert and oriented and able to make needs known to staff. Admit questions done, [id number] reviewed, physical assessment and skin check completed. Left left in splint and wrapped with ike wrap fromn toes up thigh and elevated up with blankets. Patient using bed hong [id number] issue. Patient reported UTI symptoms of freqency and discomfort. Urine sample sent to lab. Patient oriented to bed and bed controls, room, lights, phone, menu, and call huston/tv remote. Patient calls appropriatly for needs. No complaints of n/v. General diet given untill NPO at 2400. Safety measures in place. bed alarm activated. Call huston and phone within reach. Will continue to monitor.
[2020-05-31 04:59] LABS: Add Manual Diff / Slide Review NO; Basophils Absolute Auto 100 /uL (0-100); Basophils Percent Auto 0.9 % (0-2); Eosinophils Absolute Auto 200 /uL (0-450); Eosinophils Percent Auto 2.9 % (2-4); Hematocrit 27.7 % (36-46); Hemoglobin 9.2 g/dL (12.0-16.0); Lymphocytes Absolute Auto 1200 /uL (1100-4500); Lymphocytes Percent Auto 17.4 % (25-40); Mean Corpuscular HGB Conc 33.1 % (30-36); Mean Corpuscular Hemoglobin 29.7 PG (26-34); Mean Corpuscular Volume 89.7 fL (80-100); Monocytes Absolute Auto 900 /uL (0-900); Monocytes Percent Auto 12.9 % (3-14); Neutrophils Absolute Auto 4500 /uL (1500-7000); Neutrophils Percent Auto 65.9 % (50-75); Platelet Count 245 X10^3/uL (150-400); Red Blood Cell Count 3.09 X10^6/uL (4.0-5.2); Red Cell Distribution Width 20.8 % (11.6-14.8); White Blood Cell Count 6.7 X10^3/uL (4.5-11.0)
[2020-05-31 05:14] LABS: Alanine Aminotransferase 15 IU/L (<35); Albumin 2.9 g/dL (3.5-5.0); Alkaline Phosphatase 70 U/L (38-126); Aspartate Aminotransferase 22 IU/L (14-36); BUN Creatinine Ratio 19.6 (6-22); Bilirubin Total 0.3 mg/dL (0.2-1.3); Blood Urea Nitrogen 10 mg/dL (7-17); Calcium 8.5 mg/dL (8.4-10.2); Carbon Dioxide 24 mmol/L (22-32); Chloride 106 mmol/L (98-107); Estimated Glomerular Filt Rate > 60.0 mL/min (>60); Globulin 2.9 g/dL (1.7-4.1); Glucose 100 mg/dL (80-110); HEMOLYSIS < 15 (0-50); Magnesium 1.7 mg/dL (1.6-2.3); Sodium 133 mmol/L (137-145); Total Protein 5.8 g/dL (6.3-8.2)
[2020-05-31] MEDS: SODIUM CHLORIDE 0.9% 1,000 ML 100 ML IV (05:20)
[2020-05-31 05:32] LABS: Anisocytosis 2+
[2020-05-31 05:33] LABS: Hypochromasia 1+
[2020-05-31] MEDS: DOCUSATE 100 MG CAPSULE PO ×2 (08:26→20:19)
--- NOTE | 2020-05-31 12:08 | PC.NURSE ---
Day shift: Pt off unit for surgery at approx 1210.
[2020-05-31] MEDS: LACTATED RINGERS 1,000 ML 42 ML IV ×2 (12:28→16:35)
--- NOTE | 2020-05-31 13:42 | PM.PREOP ---
Pre-operative Note COVID-19 COVID-19 status: Negative Interval Note History & Physical reviewed/Exam performed by Physician: Yes Changes to H&P: No
--- NOTE | 2020-05-31 13:53 | PC.NURSE ---
Day shift: Pt remains off of AC unit at this time ([id number]).
[2020-05-31] MEDS: CLINDAMYCIN 900 MG/50 ML PIGGYBACK 50 MG IV ×2 (14:35→19:25)
--- NOTE | 2020-05-31 14:36 | CM.DANOTE ---
Patient is a 79 year old female who was admitted on 05/30/20 for Left Ankle injury. Pt has REG MCR ADV for insurance and her PCP is Dr. Jaycee Escobar. EMR was reviewed. Per MD, pt with hx of rheumatoid arthritis, severe osteoporosis and had GLF with Tibia Fx. Ortho MD to take pt to OR today for surgical intervention. Pt currently off the floor in surgery. Pt was last admitted on 12/08/19 for planned orthopedic surgery and was able to d/c home with friend assist and Dtr to fly in and assist as well. Pt lives at home alone in [place] and is independent with ADL's at baseline and still drives. Pending how pt progresses with PT after surgery, likely SNF vs HH at d/c. Pt preference has been to go home if possible or SNF at [facility] if needed. SW made referral to [facility] and they will review and follow for PT initial eval and recommendations and will begin insurance auth with [employer] (which is closed on weekends) if SNF needed. SW made referral to [facility] based on Vendor Calendar in case pt makes progress and can safely d/c home with assist and HH. Plan: SW to follow closely tomorrow after pt returns to the floor from surgery today and PT eval to determine d/c needs of likely SNF vs HH. SW to follow for [facility] and [facility] review. VIVIAN Dickson Discharge Planning/Care Management CM Discharge Assessment Start: 05/31/20 14:31 Freq: Status: Active Protocol: Document 05/31/20 14:34 BF (Rec: 05/31/20 14:36 BF [id number]) Discharge Planning Assessment Assigned [employer] Driver VIVIAN Mendez Advance Directives? Yes History Provided By Patient,Medical Record Has Patient been admitted in last 30 No days? Prior Living Arrangements House Household Members none Type of transporation used prior to Drives own vehicle admit Independent with ADL's Yes Is patient alert and oriented? Yes Caregiver for Another No DME Already Rented / Owned FWW / Walker Patient/Family Preference [facility] Facility Comment SNF vs HH pending progress after surg Barriers to Discharge No Discharge Plan [facility] Facility Transportation Arrangement friend if home and facility van if SNF Referrals Initiated [facility],Home Health Additional Comment [facility] and [facility] referral Medicare Choice List Provided Yes Review Status In Process Please Provide Date Initial DC 05/31/20 Assessment Was Performed Next Review Type Continued Stay Review
[2020-05-31] MEDS: TRANEXAMIC ACID 1,000 MG VIAL 2000 MG INJ ×2 (14:45→17:10)
--- NOTE | 2020-05-31 14:46 | PM.PN.1 ---
Subjective Subjective Date Patient Seen: 05/31/20 Time Patient Seen: 11:15 Interval history: Patient denies any pain. She feels discouraged about her fall and fracture. She is awaiting OR later today. Exam Vital Signs (past 8 hours): - 05/31/20 08:00 05/31/20 08:10 05/31/20 12:29 Temperature 97.5 F L 99.2 F Pulse Rate 79 75 Respiratory Rate 18 16 Blood Pressure 124/60 145/71 H Pulse Oximetry 96 97 97 Oxygen Delivery Method Room Air Oxygen Flow Rate 0 Narrative Exam Narrative: Gen: Alert, oriented, no acute distress HEENT: normocephalic, atraumatic, conjunctiva clear, sclera non-icteric, oral mucosa pink and moist Neck: supple, no JVD, trachea is midline Resp: Lungs CTA, non-labored breathing CV: RRR, no murmur or rubs Abd: soft, non-tender, normoactive BTs Skin: no lesions or rashes, dry and intact Neuro: Alert and oriented X 4 w/no focal deficits. Speech clear and coherent. Extremities: Left leg is in closed in a large splint Psyche: normal mood and affect Objective Labs Result Diagrams: 05/31/20 04:36 05/31/20 04:36 Labs: Laboratory Results - last 24 hr 05/30/20 05/30/20 05/30/20 18:00 18:00 18:33 WBC 7.9 RBC 3.55 L Hgb 10.4 L Hct 31.7 L MCV 89.3 MCH 29.3 MCHC 32.8 RDW 20.9 H Plt Count 274 Neut % (Auto) 81.0 H Lymph % (Auto) 9.1 L [place] % (Auto) 7.7 Eos % (Auto) 1.4 L Baso % (Auto) 0.8 Neut # (Auto) 6400 Lymph # (Auto) 700 L [place] # (Auto) 600 Eos # (Auto) 100 Baso # (Auto) 100 Platelet Estimate Adequate on smear RBC Morphology See below Hypochromasia 1+ H Anisocytosis 1+ H Microcytosis 1+ H Sodium 131 L Potassium 4.2 Chloride 103 Carbon Dioxide 22 BUN 18 H Creatinine 0.53 Estimated GFR > 60.0 BUN/Creatinine Ratio 34.0 H Glucose 113 H Calcium 8.9 Magnesium Total Bilirubin AST ALT Alkaline Phosphatase Total Protein Albumin Globulin Albumin/Globulin Ratio Urine Color Urine Appearance Urine pH Ur Specific [place] Urine Protein Urine Glucose (UA) Urine Ketones Urine Occult Blood Urine Nitrate Urine Bilirubin Urine Urobilinogen Ur Leukocyte Esterase Urine RBC Urine WBC Ur Squamous Epith Cells Amorphous Sediment Urine Bacteria Ur Culture Indicated? SARS-CoV-2 (PCR) Negative 05/30/20 05/31/20 05/31/20 21:50 04:36 04:36 WBC 6.7 RBC 3.09 L Hgb 9.2 L Hct 27.7 L MCV 89.7 MCH 29.7 MCHC 33.1 RDW 20.8 H Plt Count 245 Neut % (Auto) 65.9 Lymph % (Auto) 17.4 L [place] % (Auto) 12.9 Eos % (Auto) 2.9 Baso % (Auto) 0.9 Neut # (Auto) 4500 Lymph # (Auto) 1200 [place] # (Auto) 900 Eos # (Auto) 200 Baso # (Auto) 100 Platelet Estimate RBC Morphology See below Hypochromasia 1+ H Anisocytosis 2+ H Microcytosis Sodium 133 L Potassium 4.0 Chloride 106 Carbon Dioxide 24 BUN 10 Creatinine 0.51 L Estimated GFR > 60.0 BUN/Creatinine Ratio 19.6 Glucose 100 Calcium 8.5 Magnesium 1.7 Total Bilirubin 0.3 AST 22 ALT 15 Alkaline Phosphatase 70 Total Protein 5.8 L Albumin 2.9 L Globulin 2.9 Albumin/Globulin Ratio 1.0 Urine Color Yellow Urine Appearance Cloudy Urine pH 6.5 Ur Specific [place] 1.010 Urine Protein Negative Urine Glucose (UA) Negative Urine Ketones Trace H Urine Occult Blood Negative Urine Nitrate Negative Urine Bilirubin Negative Urine Urobilinogen 0.2 Ur Leukocyte Esterase Negative Urine RBC None seen Urine WBC None seen Ur Squamous Epith Cells 0-1 /hpf Amorphous Sediment 3+ Urine Bacteria Occasional (0-1) Ur Culture Indicated? Cult not indicated SARS-CoV-2 (PCR) PFSH Medical History Allergic rhinitis Anxiety Asthma Colitis COPD (chronic obstructive pulmonary disease) Dyslipidemia Dyspnea on exertion Edema Emphysema of lung Foot fracture, left GERD (gastroesophageal reflux disease) Herpes zoster Hyponatremia Hypothyroidism Iron deficiency anemia Lung nodule, solitary Osteoarthritis Osteoporosis Pes planus Pneumonia Reactive airway disease Rheumatoid arthritis Scoliosis Sinusitis Toe pain Surgical History History of arthroplasty of right knee (08/2015) History of carpal tunnel release (1997) Hx of oral surgery (1988) Family History (Updated 05/30/20 @ 23:25 by HENNY Coyne) Mother Breast cancer Father Crohn's disease Macular degeneration COPD (chronic obstructive pulmonary disease) Social History household members: none Smoking Status: Former smoker alcohol intake: current Assessment & Plan Assessment & Plan narrative: Loretta Mayo is admitted for operative treatment of a left-sided tibial fracture. She was seen in the ED by Dr. Rodriguez, orthopedics. Left-sided tibial fracture, acute, present on admission -pain controlled with Dilaudid and morphine -Dr. Rodriguez to taken to the OR tomorrow plan for intramedullary nailing -aspirin is discontinued for now -NPO except meds after midnight -start DC planning to see if patient may be able to go home with PT and additional services Rheumatoid arthritis, chronic -she administers methotrexate 25 mg subQ weekly on Sundays -ordered for methotrexate here Hypothyroidism, chronic -levothyroxine 75 mcg at bedtime GERD, chronic -normally takes omeprazole and will substitute with Protonix 20 mg p.o. daily Probable chronic COPD -she will continue albuterol MDI 2 puffs every 4 hours as needed for wheezing or shortness of breath Urinary frequency, present on admission -U/A negative for a UTI -likely due to IV fluids -monitor symptoms DVT PPx: SCD on right leg Consults: Dr. Rodriguez Orthopedics consult and involvement is appreciated. FEN: NS at 100 ml/hour, general diet, NPO except meds after midnight. Dispo: home vs rehab pending surgery Code Status: Full code as documented on admission Quality MIPS - Admit Advanced Care Plan / Current Medications Measures: #47 ? Advanced Care Plan Clinician documentation instruction: document at admission. [] I confirmed that the patient's Advance Care Plan is present, code status is documented, or surrogate decision maker is listed in the patient?s medical record. [SATISFIES MIPS PERFORMANCE] If Yes, Stop Here [] The patient?s Advance Care plan is not present because: (select) [MIPS PERFORMANCE EXCEPTION/EXCLUSION] [] I confirmed today that the patient does not wish or was not able to name a surrogate decision maker or provide an Advance Care Plan. [] Hospice care is currently being provided or has been provided this calendar year [] I did NOT confirm today the presence of an Advance Care Plan or surrogate decision maker documented within the patient's medical record. [DOES NOT SATISFY MIPS PERFORMANCE] #130 - Documentation of Current Medications in the Medical Record Clinician documentation instruction: use macro the first time you see a patient. [] I have utilized all available immediate resources to obtain, update, or review the patient?s current medications. [SATISFIES MIPS PERFORMANCE] If Yes, Stop Here [] The patient is not eligible for medication reconciliation; the patient is in an emergent medical situation where delaying treatment would jeopardize the patient?s health. [MIPS PERFORMANCE EXCEPTION/EXCLUSION] [] I did NOT confirm, update or review the patient's current list of medications today. [DOES NOT SATISFY MIPS PERFORMANCE] MIPS - CL Central Venous Catheter Placement Measure: #76 ? Prevention of Central Venous Catheter (CVC) ? Related Bloodstream Infection Clinician documentation instruction: use macro every time you place a central line. [] All elements of Maximal Sterile Barrier Technique, including hand hygiene, skin prep, and sterile ultrasound technique (if used) were followed. [SATISFIES MIPS PERFORMANCE] If Yes, Stop Here [] If ?No?, the medical reason all elements were NOT used for medical reason [] (ex. emergent condition). [] Maximal Sterile Barrier Technique was not followed, no reason provided [DOES NOT SATISFY MIPS PERFORMANCE] MIPS - DC Heart Failure Measures: #5 - Heart Failure (HF): Angiotensin-Converting Enzyme (HORACIO) Inhibitor or Angiotensin Receptor Stevie (ARB) Therapy for Left Ventricular Systolic Dysfunction (LVSD) and #8 - Heart Failure (HF): Beta-Stevie Therapy for Left Ventricular Systolic Dysfunction (LVSD) Clinician documentation instruction: use macro at every CHF discharge. [] The patient has current or prior documentation of left ventricular ejection fraction (LVEF) less than 40%, or moderate or severely depressed left ventricular systolic function. Answer both: [SATISFIES MIPS PERFORMANCE] [] The patient was prescribed or already taking an Angiotensin-Converting Enzyme (HORACIO) Inhibitor, or Angiotensin Receptor Stevie (ARB). [] The patient was prescribed or already taking a beta-stevie. If Yes to Both, Stop Here [] Patient not prescribed/taking: [MIPS PERFORMANCE EXCEPTION/EXCLUSION] [] HORACIO or ARB for medical/patient/system reason(s) including [] (ex. allergy, intolerance, contraindication) [] Beta-stevie for medical/patient/system reason(s) including [] (ex. allergy, intolerance, contraindication) [] Patient not prescribed/taking: [DOES NOT SATISFY MIPS PERFORMANCE] [] HORACIO or ARB, no reason given [] Beta-stevie, no reason given
--- NOTE | 2020-05-31 14:57 | SUR.OPER ---
Supine on padded OR bed, head on pillow, arms secured on padded arm boards at <90 degrees abduction, legs uncrossed, safety belt at torso, tape over blanket over right lower leg, Left leg in control of the surgeon.
[2020-05-31] MEDS: BUPIVACAINE LIPOSOME 266 MG/20 ML VIAL INJ (15:08)
[2020-05-31] MEDS: BUPIVACAINE 0.5% W/ EPI (PF) 30 ML VIAL INJ (15:10)
--- NOTE | 2020-05-31 17:35 | P.OP_ITS ---
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 Her x-rays showed a displaced left tibia Fracture. She is brought the operating room for an intramedullary margie. Preoperatively it was felt that ultimately she likely will also require left total knee arthroplasty. Surgeon: Tifafny Rodriguez Cloth Reeler: Maria T Daley Anesthesia Type: General Operative Notes Findings: Extremely soft bone, acceptable operative reduction and alignment, stable fixation Closure Type: primary Specimen(s): none sent Prosthetic devices, grafts, tissues, transplants, or devices: Rodriguez and nephew inter medullary margie tibia 28 by 10 interlocking screws Estimated Blood Loss (mL): 200 Blood products transfused: none Procedure in detail: Patient is brought to the operating room. A block was placed. A time-out was performed and antibiotics were given. Patient's left lower extremity was prepped and draped in standard sterile fashion. High-thigh tourniquet was placed but not elevated. A midline incision over the knee was made dissection was carried out through skin and subcutaneous tissues. An incision was made over the patella tendon. The patella tendon was retracted laterally and a bony awl was placed in the midportion of the tibia. Starting hole was location was confirmed with x-ray. She had extremely soft bone. Proximal drill was placed and confirmed fluoroscopically. Proximal tibia was reamed With a starting Reamer. Guidewire was placed without difficulty. Fracture was carefully reduced during placement of the guide margie. Advance a guide margie down to the distal ankle fusion screws. Next a lateral incision was made dissection was carried out down to the level of the lateral plate. The 2 most proximal screws were removed without difficulty. The guide margie was then advanced down distal to the most proximal aspect of the plate. The tibia was carefully reamed up to a size 11.5. The margie length was meticulously checked as the ultimate goal was to place the margie far enough distally that she ultimately could have a total knee arthroplasty because of her severe left knee arthritis. A 28 by 10 inter medullary margie was selected. It was meticulously advanced down distally and the location was stitched carefully checked. I did intentionally countersink it in order to allow for ultimate possibility of placement of the total knee arthroplasty. The high there was still a significant amount of instability of the leg as the patient had severe osteoporosis. The margie and the leg were meticulously aligned and an certified nursing assistant instructor was specifically used to help with this complex unstable lower extremity problem. Her ankle fusion appeared to be stable at the time and there did not appear to be excessive motion in the ankle fusion. She had severe osteoporosis in her distal tibia. The distal margie was carefully interlocked. Initially I interlocked it in the AP plane and subsequently interlocked it was screws from medial to lateral. I could tell that there was some slight impingement upon the lateral plate. It was stabilized with 3 distal screws. Next attention was directed proximally. I placed 1st a dynamic screw so that I could get some additional compression across the fracture site. I then watched with fluoroscopy as we compressed some across the fracture site. That did result in better bony apposition at the fracture site. It was then locked with a static screw. Fluoroscopy confirmed acceptable overall alignment and adequate position of the screws nail and fracture. The wounds were meticulously irrigated with normal saline. The wounds were closed with interrupted Vicryl and skin enzo. Marcaine and Exparel were carefully injected. The leg was carefully cleaned and the wounds were dressed sterilely with a soft dressing. Postoperative plan partial weight- bearing up to 50 lb on the left lower extremity. Tibial x-rays in the recovery room and at her postop appointment in 10-14 days. Complications: none Post-operative Condition: stable Disposition: Acute Care Plan for aftercare: 50 lb weight-bearing on the left lower extremity range of motion foot and knee. Home when safe. Schedule follow-up in 10-14 days.
--- NOTE | 2020-05-31 17:48 | SUR.PHASEI ---
Pt arrived, needing chin lift for airway patency, after [address] Veras back to bedside, nasal trumpet placed by him. 1749, pt more awake, responsive to name and lifting head off bed, nasal trumpet taken out .
[2020-05-31] MEDS: ALBUTEROL 2.5 MG/3 ML NEB (ADULT) INH (18:10)
[2020-05-31] MEDS: LABETALOL 20 MG/4 ML SYRINGE IV (18:17)
[2020-05-31] MEDS: TRAMADOL 50 MG TABLET PO (18:50)
[2020-05-31] MEDS: LACTATED RINGERS 1,000 ML 125 ML IV (19:19)
[2020-05-31] MEDS: ACETAMINOPHEN 325 MG TABLET 975 MG PO (20:18)
[2020-05-31] MEDS: ASPIRIN EC 81 MG TABLET PO (20:19)
[2020-05-31 21:31] LABS: Hematocrit 27.5 % (36-46); Hemoglobin 9.1 g/dL (12.0-16.0)
--- NOTE | 2020-05-31 23:06 | SUR.PHASEI ---
Late entry: Breathing labored, pt stated she was SOB, sats maintained with nasal cannula O2, slight wheeze auscultated breathing treatment given, breathing improved, pt no longer SOB, labetalol given for HR and HR now less than 100. Pt c/o slight discomfort, stated she preferred tramodol, as oxycodone caused her to vomit, order obtained from Dr. Veras and pt medicated. Pt than transported up to room buy Jani LAW and Hector LAW, Pt left in stable condition.
[2020-06-01] VITALS (7 sets, daily range): BP systolic 102–140; BP diastolic 51–79; PULSE 81–93; RESP 16–19; TEMP 36.1–36.8; O2SAT 96–98
[2020-06-01] MEDS: CLINDAMYCIN 900 MG/50 ML PIGGYBACK 50 MG IV (02:54)
[2020-06-01] MEDS: LACTATED RINGERS 1,000 ML 125 ML IV (02:54)
[2020-06-01 05:42] LABS: Hematocrit 25.2 % (36-46); Hemoglobin 8.2 g/dL (12.0-16.0); Mean Corpuscular HGB Conc 32.6 % (30-36); Mean Corpuscular Hemoglobin 29.2 PG (26-34); Mean Corpuscular Volume 89.6 fL (80-100); Platelet Count 201 X10^3/uL (150-400); Red Blood Cell Count 2.82 X10^6/uL (4.0-5.2); Red Cell Distribution Width 20.3 % (11.6-14.8); White Blood Cell Count 19.3 X10^3/uL (4.5-11.0)
[2020-06-01 05:54] LABS: BUN Creatinine Ratio 24.4 (6-22); Blood Urea Nitrogen 11 mg/dL (7-17); Calcium 8.4 mg/dL (8.4-10.2); Carbon Dioxide 22 mmol/L (22-32); Chloride 100 mmol/L (98-107); Estimated Glomerular Filt Rate > 60.0 mL/min (>60); Glucose 154 mg/dL (80-110); HEMOLYSIS < 15 (0-50); Potassium 4.1 mmol/L (3.4-5.1); Sodium 127 mmol/L (137-145)
[2020-06-01] MEDS: TRAMADOL 50 MG TABLET PO (08:13)
[2020-06-01] MEDS: ASPIRIN EC 81 MG TABLET PO ×2 (08:14→20:46)
[2020-06-01] MEDS: ACETAMINOPHEN 325 MG TABLET 975 MG PO ×2 (08:17→20:46)
[2020-06-01] MEDS: polyethylene glycoL 3350 17 GM POWD.PACK PO (08:17)
[2020-06-01] MEDS: PANTOPRAZOLE 20 MG TABLET PO (08:25)
--- NOTE | 2020-06-01 08:28 | PC.NURSE ---
Addendum entered by Danni Cabrera R.N. 06/01/20 14:35: Pt has made poor progress with mobilization this shift. Pain control not adequate with Tramadol. Added [place] and break through morphine. Pt c/o nausea with pretty much all new medications Declined zofran. Visiting with daughter at present, rating pain 4/10, declined pain control. Original Note: AM shift Pt rating pain 7/10. Order obtained for Tramadol, given. Will be up with PT this AM and evaluate effectiveness. Daughter plans to assist at home once Pt is d/c'd and Pt prefers and in home PT. Will update to CM this AM.
[2020-06-01] MEDS: ALBUTEROL HFA MDI 60 PUFF/8 GM INHALER INH (09:20)
[2020-06-01] MEDS: SODIUM CHLORIDE 0.9% 1,000 ML 500 ML IV (09:49)
[2020-06-01] MEDS: MORPHINE 2 MG/ML INJ IV (10:27)
--- NOTE | 2020-06-01 10:45 | PT.IIE ---
Current Diagnoses Unspecified fracture of upper end of left tibia, initial encounter for closed fracture (05/30/20) Surgery Performed Operation Date: 05/31/20 14:00 Actual Procedures p Intramedullary Nailing Tibia & removal of internal fixation(Left) - Tiffany Rodriguez MD Surgical History (Last Reviewed 05/30/20 @ 23:23 by HENNY Coyne) History of arthroplasty of right knee (08/2015) History of carpal tunnel release (1997) Hx of oral surgery (1988) Medical History (Last Reviewed 05/30/20 @ 23:23 by HENNY Coyne) Allergic rhinitis Anxiety Asthma Colitis COPD (chronic obstructive pulmonary disease) Dyslipidemia Dyspnea on exertion Edema Emphysema of lung Foot fracture, left GERD (gastroesophageal reflux disease) Herpes zoster Hyponatremia Hypothyroidism Iron deficiency anemia Lung nodule, solitary Osteoarthritis Osteoporosis Pes planus Pneumonia Reactive airway disease Rheumatoid arthritis Scoliosis Sinusitis Toe pain Physical Therapy Inpatient Evaluation/Re-Eval M1 PT/OT-IP Prior Functional Status Start: 06/01/20 09:06 Freq: NEEDED Status: Active Protocol: Document 06/01/20 10:43 AW (Rec: 06/01/20 12:28 AW [id number]) Medical Review Prior Functional Status Medical History Reviewed Yes Communication WNL. Pt is an effective verbal communicator Mobility and Gait Pt had left ankle arthrodesis in November 2019 and was NWB LLE >6 weeks. She briefly used a knee scooter but ended up depending on w/c and FWW for mobility. She had graduated to using a postop boot and FWW and eventually to using a SPC. She was able to complete short shopping trips. Activities of Daily Living and IADL's Pt reports independence with dressing and toileting tasks, modified independence with showering. Her daughter lives with her and assists with IADL 's and driving. Prior Functional Level (Other details) Pt has hx of osteoporosis, RA, and possible COPD. She discharged home with HH following her left ankle arthrodesis in November 2019. Social History Household Members family,none Living Arrangements House Number of Floors (Floors) One Floor Number of Stairs To Enter/Railing? short threshhold to enter Home Environment High Toilet,Walk in Shower Home Equipment Front Wheel Walker,Four Wheel Walker,Straight Cane,Tub Transfer Bench,Shower Seat with Backrest,Hand Held Shower ,Long Handled Sponge Additional Social History Comment Pt owns a knee scooter but feels unsafe with it. She has a safety frame installed around her toilet. Pt's daughter is staying with her currently and is able to provide 24/7 support. M2 PT-IP Current Condition Start: 06/01/20 09:06 Freq: NEEDED Status: Active Protocol: Document 06/01/20 10:43 AW (Rec: 06/01/20 12:33 AW [id number]) Physical Therapy Current Condition Current Condition Evaluation Date 06/01/20 Treatment Diagnosis L tibia fx s/p ORIF with IMN; difficulty in walking Onset Date 05/30/20 Weight Bearing Status Weight Bearing Status Partial Weight Bearing Allowed Weight Bearing Amount (enter % 50# PWB LLE or #) (%) M3 PT-IP Subjective Start: 06/01/20 09:06 Freq: NEEDED Status: Active Protocol: Document 06/01/20 10:43 AW (Rec: 06/01/20 12:33 AW [id number]) Subjective Physical Therapy Visit Type Type Initial Evaluation Visit Start Time 09:58 Visit Stop Time 10:43 Total Visit Minutes 45 Number of TELEGRAPH SERVICE CLERK Visits 0 Physical Therapy Visit Comments Patient Comments Pt is willing to participate with PT Patient Goals Pt hopes to avoid SNF and to go home with her daughter assisting Therapy Pain Assessment Pain When Pain Assessed During Mobility Pain Present Pain Present Pain Reported Location Left Knee Scale Used not quantified Pain Management Techniques Modification of Treatment,Re- positioning,Timing of Activity with Medications M4 PT-IP Mobility and Gait Start: 06/01/20 09:06 Freq: NEEDED Status: Active Protocol: Document 06/01/20 10:43 AW (Rec: 06/01/20 12:38 AW [id number]) PT-Bed Mobility Assessment Supine to Sit Supine to Sit Maximum Assistance,1 Person Assistance,Head of Bed Elevated,Bedrails Scooting Scooting to Edge of Bed Maximum Assistance PT-Transfer Assessment Sit to and From Stand Sit to and from Stand Moderate Assistance,1 Person Assistance,Use of Upper Extremities Equipment Transfer Assistive Device Gait Belt,Front Wheeled Walker Orthotic/Prosthetic Devices or Brace: No Transfers Transfer Destination Bedside Commode Transfer Technique Stand Pivot Transfer Ability Level of Assist Moderate Assistance,2 Person Assistance,Use of Upper Extremities Comments Mobility Comments Pt was lying in the bed complaining of increased pain with any movement. BP was 102/ 58 HR 87. RN provided IV pain med and pt then required max A x 1 to get to EOB. Pt c/o increased pain with LLE dependent position. BP was 118 /62 HR 91 as pt c/o nausea. She required extensive encouragement to stand on the RLE and 2 person assist to transfer to the BSC set up on her right side. Pt was left with nursing attending. Gait Assessment Comments Gait Comments Unable at this time. Stair Climbing Assessment Comments Stair Climbing Comments Not assessed. PT-Balance Assessment Sitting Balance and Reactions Static Sitting Balance Ability Good Dynamic Sitting Balance Ability Fair Standing Balance and Reactions Static Standing Balance Ability Poor Dynamic Standing Balance Ability Poor Device Used FWW M5 PT-IP Objective Assessments Start: 06/01/20 09:06 Freq: NEEDED Status: Active Protocol: Document 06/01/20 10:43 AW (Rec: 06/01/20 12:33 AW [id number]) Orientation Orientation/Cognition Level of Alertness Alert Orientation Name,Day of Week,Place, Situation Language Function Ability No Deficits Noted Safety Awareness Understands Safety Issues Gross Range of Motion Upper Extremity ROM Assessment Within Functional Limits Lower Extremity ROM Assessment Left Impaired Strength Upper Extremity Strength Assessment Within Functional Limits Lower Extremity Strength Assessment Left Impaired Hip 3/5 Comments Strength Comments RLE grossly 4/5 secondary to pain Sensation Assessment Sensation Gross Sensation Left LE Impaired Light Touch Impaired Sensation Description Numbness M6 PT-IP Treatment Start: 06/01/20 09:06 Freq: NEEDED Status: Active Protocol: Document 06/01/20 10:43 AW (Rec: 06/01/20 12:44 AW [id number]) Physical Therapy Treatment Education Education Provided Weight Bearing Status,Safety M7 PT-IP Assessment and Plan Start: 06/01/20 09:06 Freq: NEEDED Status: Active Protocol: Document 06/01/20 10:43 AW (Rec: 06/01/20 12:44 AW [id number]) PT Summary Assessment and Plan Potential Rehabilitation Potential Good Status of Condition at Evaluation Evolving Summary Impairments Pain,ROM,Strength,Balance, Sensation,Bed Mobility, Transfers,Gait,Activity Tolerance Assessment Summary Loretta is a 79 yo woman seen for PT evaluation on POD1 following ORIF with IMN for left tibia fracture (proximal to mid-shaft). WB status is 50 # PWB LLE. She has history of osteoporosis and RA with multiple prior fractures. On evaluation, pt was significantly limited by pain and required max assist for bed mobility, 2 person assist for transfer. Depending on progress, pt may require SNF rehab prior to safe return home. If she progresses during her stay and is able to safely go home, she will need HH therapy to improve strength and mobility. Goals Bed Mobility Goal Standby Assistance Transfer Goal Standby Assistance,Front Wheeled Walker Gait Goal Standby Assistance,Front Wheel Walker Gait Distance 50 Other Goals LTG: improve ambulation to 100 feet with FWW SBA Days to Meet Goals 5 Frequency of Treatment Frequency Of Treatment Twice a Day Treatment Plan Physical Therapy Treatment Plan Bed Mobility Training,Transfer Training,Gait Training, Therapeutic Exercise,Balance Retraining,Post Op Education, Discharge Planning,Hot or Cold Pack,Neuromuscular Re-ed, Coordination Retraining Other Recommendations and Next Treatment transfers, caregiver training, Focus ambulation with FWW Precautions Other Precautions 50# PWB LLE Recommendations To Nursing Amount of Assist Needed 2 Person Assist Discharge Recommendations PT Discharge Recommendations Home with 24/7 Assist Available,Home Health,SNF Rehab Other Discharge Recommendations SNF vs home with 24/7 and HH depending on progress Equipment Needed for Home Before w/c, BSC Discharge
[2020-06-01] MEDS: HYDROCODONE/ACET 5/325 TABLET 1 TAB PO ×3 (11:25→23:35)
[2020-06-01] MEDS: LACTOBACILLUS ACIDOPHILUS TABLET 1 EACH PO ×2 (11:26→20:46)
--- NOTE | 2020-06-01 12:09 | P.PN_ITS ---
Exam Vital Signs (past 8 hours): - 06/01/20 07:35 06/01/20 09:21 06/01/20 11:15 Temperature 97.5 F L 98.2 F Pulse Rate 81 82 88 Respiratory Rate 19 18 18 Blood Pressure 111/58 L 129/55 L Pulse Oximetry 96 98 97 Oxygen Delivery Method Room Air Oxygen Flow Rate 0 Objective Labs Result Diagrams: 06/01/20 05:27 06/01/20 05:27 Labs: Laboratory Results - last 24 hr 05/31/20 06/01/20 06/01/20 21:19 05:27 05:27 WBC 19.3 H D RBC 2.82 L Hgb 9.1 L 8.2 L Hct 27.5 L 25.2 L MCV 89.6 MCH 29.2 MCHC 32.6 RDW 20.3 H Plt Count 201 Sodium 127 L Potassium 4.1 Chloride 100 Carbon Dioxide 22 BUN 11 Creatinine 0.45 L Estimated GFR > 60.0 BUN/Creatinine Ratio 24.4 H Glucose 154 H Calcium 8.4 PFSH Medical History Allergic rhinitis Anxiety Asthma Colitis COPD (chronic obstructive pulmonary disease) Dyslipidemia Dyspnea on exertion Edema Emphysema of lung Foot fracture, left GERD (gastroesophageal reflux disease) Herpes zoster Hyponatremia Hypothyroidism Iron deficiency anemia Lung nodule, solitary Osteoarthritis Osteoporosis Pes planus Pneumonia Reactive airway disease Rheumatoid arthritis Scoliosis Sinusitis Toe pain Surgical History History of arthroplasty of right knee (08/2015) History of carpal tunnel release (1997) Hx of oral surgery (1988) Family History (Updated 05/30/20 @ 23:25 by HENNY Coyne) Mother Breast cancer Father Crohn's disease Macular degeneration COPD (chronic obstructive pulmonary disease) Social History household members: none Smoking Status: Former smoker alcohol intake: current Assessment & Plan Assessment & Plan narrative: POD#1 s/p ORIF with IMN to L tibial fx. On exam, patient is NVI with no s/s of DVT. Non-pitting edema to left foot consistent with post op status. Dressing clean dry intact. I eductated pt about ice and elevate with limited weight bearing recommended by Dr. Rodriguez. Continue PT, medical management. Monitor H/H, repeat tomorrow. Quality MIPS - Admit Advanced Care Plan / Current Medications Measures: #47 ? Advanced Care Plan Clinician documentation instruction: document at admission. [] I confirmed that the patient's Advance Care Plan is present, code status is documented, or surrogate decision maker is listed in the patient?s medical record. [SATISFIES MIPS PERFORMANCE] If Yes, Stop Here [] The patient?s Advance Care plan is not present because: (select) [MIPS PERFORMANCE EXCEPTION/EXCLUSION] [] I confirmed today that the patient does not wish or was not able to name a surrogate decision maker or provide an Advance Care Plan. [] Hospice care is currently being provided or has been provided this calendar year [] I did NOT confirm today the presence of an Advance Care Plan or surrogate decision maker documented within the patient's medical record. [DOES NOT SATISFY MIPS PERFORMANCE] #130 - Documentation of Current Medications in the Medical Record Clinician documentation instruction: use macro the first time you see a patient. [] I have utilized all available immediate resources to obtain, update, or review the patient?s current medications. [SATISFIES MIPS PERFORMANCE] If Yes, Stop Here [] The patient is not eligible for medication reconciliation; the patient is in an emergent medical situation where delaying treatment would jeopardize the patient?s health. [MIPS PERFORMANCE EXCEPTION/EXCLUSION] [] I did NOT confirm, update or review the patient's current list of medications today. [DOES NOT SATISFY MIPS PERFORMANCE] MIPS - CL Central Venous Catheter Placement Measure: #76 ? Prevention of Central Venous Catheter (CVC) ? Related Bloodstream Infection Clinician documentation instruction: use macro every time you place a central line. [] All elements of Maximal Sterile Barrier Technique, including hand hygiene, skin prep, and sterile ultrasound technique (if used) were followed. [SATISFIES MIPS PERFORMANCE] If Yes, Stop Here [] If ?No?, the medical reason all elements were NOT used for medical reason [] (ex. emergent condition). [] Maximal Sterile Barrier Technique was not followed, no reason provided [DOES NOT SATISFY MIPS PERFORMANCE] MIPS - DC Heart Failure Measures: #5 - Heart Failure (HF): Angiotensin-Converting Enzyme (HORACIO) Inhibitor or Angiotensin Receptor Stevie (ARB) Therapy for Left Ventricular Systolic Dysfunction (LVSD) and #8 - Heart Failure (HF): Beta-Stevie Therapy for Left Ventricular Systolic Dy sfunction (LVSD) Clinician documentation instruction: use macro at every CHF discharge. [] The patient has current or prior documentation of left ventricular ejection fraction (LVEF) less than 40%, or moderate or severely depressed left ventricular systolic function. Answer both: [SATISFIES MIPS PERFORMANCE] [] The patient was prescribed or already taking an Angiotensin-Converting Enzyme (HORACIO) Inhibitor, or Angiotensin Receptor Stevie (ARB). [] The patient was prescribed or already taking a beta-stevie. If Yes to Both, Stop Here [] Patient not prescribed/taking: [MIPS PERFORMANCE EXCEPTION/EXCLUSION] [] HORACIO or ARB for medical/patient/system reason(s) including [] (ex. allergy, intolerance, contraindication) [] Beta-stevie for medical/patient/system reason(s) including [] (ex. allergy, intolerance, contraindication) [] Patient not prescribed/taking: [DOES NOT SATISFY MIPS PERFORMANCE] [] HORACIO or ARB, no reason given [] Beta-stevie, no reason given
--- NOTE | 2020-06-01 12:58 | CM.DPC ---
DCP SNF vs HH Per Ortho MD, pt not medically stable to d/c yet today. Per PT, pt far from baseline at present and pain management has been an issue and currently recommending SNF unless pt makes significant progress. SW met bedside with pt and explained role and pt confirms that she typically lives alone in [place] but since her last admission a few months ago for her ankle surgery her Dtr Kathy flew in from out of town and has been staying with pt the last few months and plans to remain for assist, especially since pt's GLF and tibia fx. Pt still has all the DME from her knee and ankle surgery like w/c, slide bench, walker, knee scooter, etc.. Pt's best friend from [place] also comes to stay with pt regularly and she is great at caregiving. SW discussed again the need to have at least 2 plans available for d/c pending her progress and provided pt with the [facility] Choice List for HH/SNF. SW aware that pt's preference is to return home with Dtr staying 24/7 for assist and [facility] (accidentally made referral to [facility], but pt had [facility] previously and this is her preference). Pt aware that she may not progress in her mobility and pain management to safely d/c home with Dtr and preference would be [facility] still if home is not a safe option right from the hospital. LINDA discussed need for insurance auth if SNF needed and she acknowledges understanding. SW made [facility] referral today ([facility] referral accidentally made yesterday) and faxed clinicals to review. SW spoke to August at [facility] and they can accept pt if SNF needed and insurance auth obtained. [facility] aware that pt is hopeful for home but [facility] willing to begin insurance auth becky tomorrow morning in case SNF needed. PASRR completed. F2F still needed if pt safe for home with [facility]. Plan: SW to follow closely in the morning after further PT towards determining plan of home with Dtr and new [facility] vs [facility] SNF if auth obtained. Vanessa Franco, [employer]
[2020-06-01] MEDS: METHOTREXATE 250 MG/10 ML 25 MG SUBCUT ×3 (13:58→15:08)
--- NOTE | 2020-06-01 14:03 | PM.PN.1 ---
Subjective Subjective Date Patient Seen: 06/01/20 Time Patient Seen: 10:00 Interval history: Had surgery yesterday with left intramedullary nailing. Today says she has uncontrolled pain. She did not want to take ordered oxycodone due to previously having nausea. She has not worked with PT today. Exam Vital Signs (past 8 hours): - 06/01/20 07:35 06/01/20 09:21 06/01/20 11:15 Temperature 97.5 F L 98.2 F Pulse Rate 81 82 88 Respiratory Rate 19 18 18 Blood Pressure 111/58 L 129/55 L Pulse Oximetry 96 98 97 Oxygen Delivery Method Room Air Oxygen Flow Rate 0 Narrative Exam Narrative: Alert, oriented, no acute distress HEENT: normocephalic, atraumatic, conjunctiva clear, sclera non-icteric, oral mucosa pink and moist Neck: supple, no JVD, trachea is midline Resp: Lungs CTA, non-labored breathing CV: RRR, no murmur or rubs Abd: soft, non-tender, normoactive BTs Skin: no lesions or rashes, dry and intact Neuro: Alert and oriented X 4 w/no focal deficits. Speech clear and coherent. Extremities: Left leg is in bandage which is clean Psyche: normal mood and affect Objective Labs Result Diagrams: 06/01/20 05:27 06/01/20 05:27 Labs: Laboratory Results - last 24 hr 05/31/20 06/01/20 06/01/20 21:19 05:27 05:27 WBC 19.3 H D RBC 2.82 L Hgb 9.1 L 8.2 L Hct 27.5 L 25.2 L MCV 89.6 MCH 29.2 MCHC 32.6 RDW 20.3 H Plt Count 201 Sodium 127 L Potassium 4.1 Chloride 100 Carbon Dioxide 22 BUN 11 Creatinine 0.45 L Estimated GFR > 60.0 BUN/Creatinine Ratio 24.4 H Glucose 154 H Calcium 8.4 PFSH Medical History Allergic rhinitis Anxiety Asthma Colitis COPD (chronic obstructive pulmonary disease) Dyslipidemia Dyspnea on exertion Edema Emphysema of lung Foot fracture, left GERD (gastroesophageal reflux disease) Herpes zoster Hyponatremia Hypothyroidism Iron deficiency anemia Lung nodule, solitary Osteoarthritis Osteoporosis Pes planus Pneumonia Reactive airway disease Rheumatoid arthritis Scoliosis Sinusitis Toe pain Surgical History History of arthroplasty of right knee (08/2015) History of carpal tunnel release (1997) Hx of oral surgery (1988) Family History (Updated 05/30/20 @ 23:25 by HENNY Coyne) Mother Breast cancer Father Crohn's disease Macular degeneration COPD (chronic obstructive pulmonary disease) Social History household members: family and none Smoking Status: Former smoker alcohol intake: current Assessment & Plan Assessment & Plan narrative: Loretta Mayo is admitted for operative treatment of a left-sided tibial fracture. Left-sided tibial fracture, acute, s/p intramedullary nailing on 05/31, today POD#1 -pain control with hydrocone, tramadol and morphine -aspirin is discontinued for now -PT eval Acute blood loss anemia, from surgery -hemoglobin 8.2 today, no evidence of active bleeding -recheck hgb tomorrow Leukocytosis - no fevers, no cough, dysuria, or GI symptoms -WBC of 19, newly elevated, no signs or symptoms of infection -continue to monitor, likely elevated as stress response -recheck WBC tomorrow Hyponatremia - Na 127 newly low -no symptoms currently -ordered for IVF -most likely volume depletion in setting of surgery -recheck Na tomorrow Rheumatoid arthritis, chronic -she administers methotrexate 25 mg subQ weekly on Sundays -ordered for methotrexate here Hypothyroidism, chronic -levothyroxine 75 mcg at bedtime GERD, chronic -normally takes omeprazole and will substitute with Protonix 20 mg p.o. daily Probable chronic COPD -she will continue albuterol MDI 2 puffs every 4 hours as needed for wheezing or shortness of breath Urinary frequency, present on admission -U/A negative for a UTI -likely due to IV fluids -monitor symptoms DVT PPx: SCD on right leg Consults: Dr. Rodriguez Orthopedics consult and involvement is appreciated. FEN: NS at 100 ml/hour, general diet, NPO except meds after midnight. Dispo: home vs rehab pending surgery Code Status: Full code as documented on admission Quality MIPS - Admit Advanced Care Plan / Current Medications Measures: #47 ? Advanced Care Plan Clinician documentation instruction: document at admission. [] I confirmed that the patient's Advance Care Plan is present, code status is documented, or surrogate decision maker is listed in the patient?s medical record. [SATISFIES MIPS PERFORMANCE] If Yes, Stop Here [] The patient?s Advance Care plan is not present because: (select) [MIPS PERFORMANCE EXCEPTION/EXCLUSION] [] I confirmed today that the patient does not wish or was not able to name a surrogate decision maker or provide an Advance Care Plan. [] Hospice care is currently being provided or has been provided this calendar year [] I did NOT confirm today the presence of an Advance Care Plan or surrogate decision maker documented within the patient's medical record. [DOES NOT SATISFY MIPS PERFORMANCE] #130 - Documentation of Current Medications in the Medical Record Clinician documentation instruction: use macro the first time you see a patient. [] I have utilized all available immediate resources to obtain, update, or review the patient?s current medications. [SATISFIES MIPS PERFORMANCE] If Yes, Stop Here [] The patient is not eligible for medication reconciliation; the patient is in an emergent medical situation where delaying treatment would jeopardize the patient?s health. [MIPS PERFORMANCE EXCEPTION/EXCLUSION] [] I did NOT confirm, update or review the patient's current list of medications today. [DOES NOT SATISFY MIPS PERFORMANCE] MIPS - CL Central Venous Catheter Placement Measure: #76 ? Prevention of Central Venous Catheter (CVC) ? Related Bloodstream Infection Clinician documentation instruction: use macro every time you place a central line. [] All elements of Maximal Sterile Barrier Technique, including hand hygiene, skin prep, and sterile ultrasound technique (if used) were followed. [SATISFIES MIPS PERFORMANCE] If Yes, Stop Here [] If ?No?, the medical reason all elements were NOT used for medical reason [] (ex. emergent condition). [] Maximal Sterile Barrier Technique was not followed, no reason provided [DOES NOT SATISFY MIPS PERFORMANCE] MIPS - DC Heart Failure Measures: #5 - Heart Failure (HF): Angiotensin-Converting Enzyme (HORACIO) Inhibitor or Angiotensin Receptor Stevie (ARB) Therapy for Left Ventricular Systolic Dysfunction (LVSD) and #8 - Heart Failure (HF): Beta-Stevie Therapy for Left Ventricular Systolic Dysfunction (LVSD) Clinician documentation instruction: use macro at every CHF discharge. [] The patient has current or prior documentation of left ventricular ejection fraction (LVEF) less than 40%, or moderate or severely depressed left ventricular systolic function. Answer both: [SATISFIES MIPS PERFORMANCE] [] The patient was prescribed or already taking an Angiotensin-Converting Enzyme (HORACIO) Inhibitor, or Angiotensin Receptor Stevie (ARB). [] The patient was prescribed or already taking a beta-stevie. If Yes to Both, Stop Here [] Patient not prescribed/taking: [MIPS PERFORMANCE EXCEPTION/EXCLUSION] [] HORACIO or ARB for medical/patient/system reason(s) including [] (ex. allergy, intolerance, contraindication) [] Beta-stevie for medical/patient/system reason(s) including [] (ex. allergy, intolerance, contraindication) [] Patient not prescribed/taking: [DOES NOT SATISFY MIPS PERFORMANCE] [] HORACIO or ARB, no reason given [] Beta-stevie, no reason given
[2020-06-01] MEDS: CALCIUM CARBONATE 500 MG TAB PO (15:52)
--- NOTE | 2020-06-01 16:51 | PT.IPTN ---
Current Diagnoses Unspecified fracture of upper end of left tibia, initial encounter for closed fracture (05/30/20) Surgery Performed Operation Date: 05/31/20 14:00 Actual Procedures p Intramedullary Nailing Tibia & removal of internal fixation(Left) - Tiffany Rodriguez MD Physical Therapy Treatment Note M2 PT-IP Current Condition Start: 06/01/20 09:06 Freq: NEEDED Status: Active Protocol: Document 06/01/20 10:43 AW (Rec: 06/01/20 12:33 AW [id number]) Physical Therapy Current Condition Current Condition Evaluation Date 06/01/20 Treatment Diagnosis L tibia fx s/p ORIF with IMN; difficulty in walking Onset Date 05/30/20 Weight Bearing Status Weight Bearing Status Partial Weight Bearing Allowed Weight Bearing Amount (enter % 50# PWB LLE or #) (%) M3 PT-IP Subjective Start: 06/01/20 09:06 Freq: NEEDED Status: Active Protocol: Document 06/01/20 10:43 AW (Rec: 06/01/20 12:33 AW [id number]) Subjective Physical Therapy Visit Type Type Initial Evaluation Visit Start Time 09:58 Visit Stop Time 10:43 Total Visit Minutes 45 Number of AUTO BODY ESTIMATOR Visits 0 Physical Therapy Visit Comments Patient Comments Pt is willing to participate with PT Patient Goals Pt hopes to avoid SNF and to go home with her daughter assisting Therapy Pain Assessment Pain When Pain Assessed During Mobility Pain Present Pain Present Pain Reported Location Left Knee Scale Used not quantified Pain Management Techniques Modification of Treatment,Re- positioning,Timing of Activity with Medications M4 PT-IP Mobility and Gait Start: 06/01/20 09:06 Freq: NEEDED Status: Active Protocol: Document 06/01/20 10:43 AW (Rec: 06/01/20 12:38 AW [id number]) PT-Bed Mobility Assessment Supine to Sit Supine to Sit Maximum Assistance,1 Person Assistance,Head of Bed Elevated,Bedrails Scooting Scooting to Edge of Bed Maximum Assistance PT-Transfer Assessment Sit to and From Stand Sit to and from Stand Moderate Assistance,1 Person Assistance,Use of Upper Extremities Equipment Transfer Assistive Device Gait Belt,Front Wheeled Walker Orthotic/Prosthetic Devices or Brace: No Transfers Transfer Destination Bedside Commode Transfer Technique Stand Pivot Transfer Ability Level of Assist Moderate Assistance,2 Person Assistance,Use of Upper Extremities Comments Mobility Comments Pt was lying in the bed complaining of increased pain with any movement. BP was 102/ 58 HR 87. RN provided IV pain med and pt then required max A x 1 to get to EOB. Pt c/o increased pain with LLE dependent position. BP was 118 /62 HR 91 as pt c/o nausea. She required extensive encouragement to stand on the RLE and 2 person assist to transfer to the BSC set up on her right side. Pt was left with nursing attending. Gait Assessment Comments Gait Comments Unable at this time. Stair Climbing Assessment Comments Stair Climbing Comments Not assessed. PT-Balance Assessment Sitting Balance and Reactions Static Sitting Balance Ability Good Dynamic Sitting Balance Ability Fair Standing Balance and Reactions Static Standing Balance Ability Poor Dynamic Standing Balance Ability Poor Device Used FWW M5 PT-IP Objective Assessments Start: 06/01/20 09:06 Freq: NEEDED Status: Active Protocol: Document 06/01/20 10:43 AW (Rec: 06/01/20 12:33 AW [id number]) Orientation Orientation/Cognition Level of Alertness Alert Orientation Name,Day of Week,Place, Situation Language Function Ability No Deficits Noted Safety Awareness Understands Safety Issues Gross Range of Motion Upper Extremity ROM Assessment Within Functional Limits Lower Extremity ROM Assessment Left Impaired Strength Upper Extremity Strength Assessment Within Functional Limits Lower Extremity Strength Assessment Left Impaired Hip 3/5 Comments Strength Comments RLE grossly 4/5 secondary to pain Sensation Assessment Sensation Gross Sensation Left LE Impaired Light Touch Impaired Sensation Description Numbness M6 PT-IP Treatment Start: 06/01/20 09:06 Freq: NEEDED Status: Active Protocol: Document 06/01/20 10:43 AW (Rec: 06/01/20 12:44 AW [id number]) Physical Therapy Treatment Education Education Provided Weight Bearing Status,Safety M7 PT-IP Assessment and Plan Start: 06/01/20 09:06 Freq: NEEDED Status: Active Protocol: Document 06/01/20 10:43 AW (Rec: 06/01/20 12:44 AW [id number]) PT Summary Assessment and Plan Potential Rehabilitation Potential Good Status of Condition at Evaluation Evolving Summary Impairments Pain,ROM,Strength,Balance, Sensation,Bed Mobility, Transfers,Gait,Activity Tolerance Assessment Summary Loretta is a 79 yo woman seen for PT evaluation on POD1 following ORIF with IMN for left tibia fracture (proximal to mid-shaft). WB status is 50 # PWB LLE. She has history of osteoporosis and RA with multiple prior fractures. On evaluation, pt was significantly limited by pain and required max assist for bed mobility, 2 person assist for transfer. Depending on progress, pt may require SNF rehab prior to safe return home. If she progresses during her stay and is able to safely go home, she will need HH therapy to improve strength and mobility. Goals Bed Mobility Goal Standby Assistance Transfer Goal Standby Assistance,Front Wheeled Walker Gait Goal Standby Assistance,Front Wheel Walker Gait Distance 50 Other Goals LTG: improve ambulation to 100 feet with FWW SBA Days to Meet Goals 5 Frequency of Treatment Frequency Of Treatment Twice a Day Treatment Plan Physical Therapy Treatment Plan Bed Mobility Training,Transfer Training,Gait Training, Therapeutic Exercise,Balance Retraining,Post Op Education, Discharge Planning,Hot or Cold Pack,Neuromuscular Re-ed, Coordination Retraining Other Recommendations and Next Treatment transfers, caregiver training, Focus ambulation with FWW Precautions Other Precautions 50# PWB LLE Recommendations To Nursing Amount of Assist Needed 2 Person Assist Discharge Recommendations PT Discharge Recommendations Home with 24/7 Assist Available,Home Health,SNF Rehab Other Discharge Recommendations SNF vs home with 24/7 and HH depending on progress Equipment Needed for Home Before w/c, BSC Discharge
--- NOTE | 2020-06-01 16:52 | PT.IPTN ---
Current Diagnoses Unspecified fracture of upper end of left tibia, initial encounter for closed fracture (05/30/20) Surgery Performed Operation Date: 05/31/20 14:00 Actual Procedures p Intramedullary Nailing Tibia & removal of internal fixation(Left) - Tiffany Rodriguez MD Physical Therapy Treatment Note M2 PT-IP Current Condition Start: 06/01/20 09:06 Freq: NEEDED Status: Active Protocol: Document 06/01/20 10:43 AW (Rec: 06/01/20 12:33 AW [id number]) Physical Therapy Current Condition Current Condition Evaluation Date 06/01/20 Treatment Diagnosis L tibia fx s/p ORIF with IMN; difficulty in walking Onset Date 05/30/20 Weight Bearing Status Weight Bearing Status Partial Weight Bearing Allowed Weight Bearing Amount (enter % 50# PWB LLE or #) (%) M3 PT-IP Subjective Start: 06/01/20 09:06 Freq: NEEDED Status: Active Protocol: Document 06/01/20 16:51 AW (Rec: 06/01/20 17:00 AW [id number]) Subjective Physical Therapy Visit Type Type Treatment Note Visit Start Time 16:31 Visit Stop Time 16:50 Total Visit Minutes 19 Number of TATTOO IDENTIFIER Visits 0 Physical Therapy Visit Comments Patient Comments Pt is sitting up in bed, willing to transfer to the chair. Therapy Pain Assessment Pain When Pain Assessed During Mobility Pain Present Pain Present Denied Pain M4 PT-IP Mobility and Gait Start: 06/01/20 09:06 Freq: NEEDED Status: Active Protocol: Document 06/01/20 16:51 AW (Rec: 06/01/20 17:00 AW [id number]) PT-Bed Mobility Assessment Supine to Sit Supine to Sit Moderate Assistance,1 Person Assistance,Head of Bed Elevated,Bedrails Scooting Scooting to Edge of Bed Contact Guard Assistance PT-Transfer Assessment Sit to and From Stand Sit to and from Stand Moderate Assistance,1 Person Assistance,Use of Upper Extremities Equipment Transfer Assistive Device Gait Belt,Front Wheeled Walker Orthotic/Prosthetic Devices or Brace: No Transfers Transfer Destination Chair Transfer Technique Stand Step Pivot Transfer Ability Level of Assist Moderate Assistance,1 Person Assistance,Use of Upper Extremities Comments Mobility Comments Pt was sitting up in bed as PT arrived. She stated pain control was improved. With HOB elevated, she was able to move her legs toward the left side of the bed and transition to sitting EOB mod A x 1. She scooted to EOB and used the bed cane on right side to stand mod A x 1 with FWW. She maintained NWB LLE while transferring to chair set up two feet away. Pt rested briefly and then practiced sit to stand from the chair mod A x 1 and cues to push off from the chair arms. Pt sat and repositioned herself on the chair, scooting herself back SBA. Pt was left with call light and all needs in reach. Gait Assessment Comments Gait Comments Pt able to take steps with FWW during transfer. PT-Balance Assessment Sitting Balance and Reactions Static Sitting Balance Ability Good Dynamic Sitting Balance Ability Fair Standing Balance and Reactions Static Standing Balance Ability Poor Dynamic Standing Balance Ability Poor Device Used FWW M5 PT-IP Objective Assessments Start: 06/01/20 09:06 Freq: NEEDED Status: Active Protocol: Document 06/01/20 10:43 AW (Rec: 06/01/20 12:33 AW [id number]) Orientation Orientation/Cognition Level of Alertness Alert Orientation Name,Day of Week,Place, Situation Language Function Ability No Deficits Noted Safety Awareness Understands Safety Issues Gross Range of Motion Upper Extremity ROM Assessment Within Functional Limits Lower Extremity ROM Assessment Left Impaired Strength Upper Extremity Strength Assessment Within Functional Limits Lower Extremity Strength Assessment Left Impaired Hip 3/5 Comments Strength Comments RLE grossly 4/5 secondary to pain Sensation Assessment Sensation Gross Sensation Left LE Impaired Light Touch Impaired Sensation Description Numbness M6 PT-IP Treatment Start: 06/01/20 09:06 Freq: NEEDED Status: Active Protocol: Document 06/01/20 16:51 AW (Rec: 06/01/20 17:00 AW [id number]) Physical Therapy Treatment Education Education Provided Weight Bearing Status,Safety M7 PT-IP Assessment and Plan Start: 06/01/20 09:06 Freq: NEEDED Status: Active Protocol: Document 06/01/20 16:51 AW (Rec: 06/01/20 17:00 AW [id number]) PT Summary Assessment and Plan Summary Impairments Pain,ROM,Strength,Balance, Sensation,Bed Mobility, Transfers,Gait,Activity Tolerance Progress Towards Goals Slow Progress due to Pain,Slow Progress due to Activity Tolerance Assessment Summary Pt has low activity tolerance affecting mobility independence but was able to improve bed mobility to mod assist and to transfer via step pivot vs stand pivot earlier. Pt is improving slowly. Pt now reports she has a lift recliner at home. PT will continue to reassess but at this time recommending SNF rehab. If pt progresses and goes home, HH therapy will be needed to progress her strength and mobility independence. Goals Bed Mobility Goal Standby Assistance Transfer Goal Standby Assistance,Front Wheeled Walker Gait Goal Standby Assistance,Front Wheel Walker Gait Distance 50 Other Goals LTG: improve ambulation to 100 feet with FWW SBA Days to Meet Goals 5 Frequency of Treatment Frequency Of Treatment Twice a Day Treatment Plan Physical Therapy Treatment Plan Bed Mobility Training,Transfer Training,Gait Training, Therapeutic Exercise,Balance Retraining,Post Op Education, Discharge Planning,Hot or Cold Pack,Neuromuscular Re-ed, Coordination Retraining Other Recommendations and Next Treatment transfers, caregiver training, Focus ambulation with FWW Precautions Other Precautions 50# PWB LLE Recommendations To Nursing Amount of Assist Needed 1 Person Assist,2 Person Assist Discharge Recommendations PT Discharge Recommendations Home with 24/7 Assist Available,Home Health,SNF Rehab Other Discharge Recommendations SNF vs home with 24/7 and depending on progress Equipment Needed for Home Before w/c, BSC Discharge
[2020-06-01] MEDS: DOCUSATE 100 MG CAPSULE PO (20:46)
[2020-06-01] MEDS: LEVOTHYROXINE 75 MCG TABLET PO (21:14)
[2020-06-02 02:21] LABS: Bacteria Urine None Seen; RBC Urine None Seen (0-5/HPF); WBC Urine None Seen (0-5/HPF)
[2020-06-02 02:22] LABS: Appearance Urine UA CLEAR; Bilirubin Urine UA NEGATIVE (NEGATIVE); Color Urine UA YELLOW; Glucose Urine UA NEGATIVE (Negative); Ketones Urine UA NEGATIVE (NEGATIVE); Leukocyte Esterase Urine UA NEGATIVE (NEGATIVE); Nitrite Urine UA NEGATIVE (Negative); Occult Blood Urine UA NEGATIVE (Negative); Protein Urine UA NEGATIVE (Negative); Specific Gravity Urine UA <=1.005 (1.000-1.035); Urobilinogen Urine UA 0.2 E.U./dL (0.2)
[2020-06-02 02:24] LABS: Culture Indicated Urine Cult Not Indicated; Squamous Epithelial Cell Urine 0-1 /HPF (0-5/HPF)
[2020-06-02 04:04] VITALS: BP 119/71; PULSE 76; RESP 15; TEMP 37.2; O2SAT 95
[2020-06-02 05:19] LABS: Hematocrit 24.2 % (36-46); Hemoglobin 8.1 g/dL (12.0-16.0); Mean Corpuscular HGB Conc 33.3 % (30-36); Mean Corpuscular Volume 89.9 fL (80-100); Platelet Count 193 X10^3/uL (150-400); Red Cell Distribution Width 21.6 % (11.6-14.8); White Blood Cell Count 9.8 X10^3/uL (4.5-11.0)
--- NOTE | 2020-06-02 05:28 | PC.NURSE ---
Declined Vicodin at this time, encouraged to call RN if she needed pain med. Will cont. POC & monitor
[2020-06-02] MEDS: PANTOPRAZOLE 20 MG TABLET PO (05:31)
[2020-06-02 05:39] LABS: BUN Creatinine Ratio 19.2 (6-22); Blood Urea Nitrogen 10 mg/dL (7-17); Calcium 8.5 mg/dL (8.4-10.2); Carbon Dioxide 26 mmol/L (22-32); Chloride 101 mmol/L (98-107); Estimated Glomerular Filt Rate > 60.0 mL/min (>60); Glucose 101 mg/dL (80-110); HEMOLYSIS < 15 (0-50); Potassium 3.8 mmol/L (3.4-5.1); Sodium 130 mmol/L (137-145)
[2020-06-02] MEDS: HYDROCODONE/ACET 5/325 TABLET 1 TAB PO (06:57)
--- NOTE | 2020-06-02 07:26 | P.PN_ITS ---
Subjective Subjective Date Patient Seen: 06/02/20 Time Patient Seen: 07:26 Interval history: 79 y.o. POD # 2 S/P left tibia intramedullary nailing, removal internal fixation left tibia. No issues overnight. Reports poor pain control unless at rest. Has been OOB. Agrees SNF dispo may be best tomorrow. Has voided and denies F/C/CP/SOB/N/V. H&H 24.2&8.1 Exam Vital Signs (past 8 hours): - 06/02/20 04:04 Temperature 99.0 F Pulse Rate 76 Respiratory Rate 15 Blood Pressure 119/71 Pulse Oximetry 95 Oxygen Delivery Method Room Air Oxygen Flow Rate 0 Narrative Exam Narrative: Lying comfertable, NAD, AOx3. NVI with no s/s of DVT. Non-pitting edema to left foot consistent with post op status. Dressing clean dry intact. Objective Labs Result Diagrams: 06/02/20 04:52 06/02/20 04:52 Labs: Laboratory Results - last 24 hr 06/02/20 06/02/20 06/02/20 02:00 04:52 04:52 WBC 9.8 RBC 2.70 L Hgb 8.1 L Hct 24.2 L MCV 89.9 MCH 30.0 MCHC 33.3 RDW 21.6 H Plt Count 193 Sodium 130 L Potassium 3.8 Chloride 101 Carbon Dioxide 26 BUN 10 Creatinine 0.52 Estimated GFR > 60.0 BUN/Creatinine Ratio 19.2 Glucose 101 Calcium 8.5 Urine Color Yellow Urine Appearance Clear Urine pH 7.0 Ur Specific [place] <=1.005 Urine Protein Negative Urine Glucose (UA) Negative Urine Ketones Negative Urine Occult Blood Negative Urine Nitrate Negative Urine Bilirubin Negative Urine Urobilinogen 0.2 Ur Leukocyte Esterase Negative Urine RBC None seen Urine WBC None seen Ur Squamous Epith Cells 0-1 /hpf Urine Bacteria None seen Ur Culture Indicated? Cult not indicated PFSH Medical History Allergic rhinitis Anxiety Asthma Colitis COPD (chronic obstructive pulmonary disease) Dyslipidemia Dyspnea on exertion Edema Emphysema of lung Foot fracture, left GERD (gastroesophageal reflux disease) Herpes zoster Hyponatremia Hypothyroidism Iron deficiency anemia Lung nodule, solitary Osteoarthritis Osteoporosis Pes planus Pneumonia Reactive airway disease Rheumatoid arthritis Scoliosis Sinusitis Toe pain Surgical History History of arthroplasty of right knee (08/2015) History of carpal tunnel release (1997) Hx of oral surgery (1988) Family History (Updated 05/30/20 @ 23:25 by HENNY Coyne) Mother Breast cancer Father Crohn's disease Macular degeneration COPD (chronic obstructive pulmonary disease) Social History household members: family and none Smoking Status: Former smoker alcohol intake: current Assessment & Plan Post-op Postoperative Procedures: Procedures Operation Date: 05/31/20 14:00 Actual Procedures Side Surgeon p Intramedullary Nailing Tibia & removal of internal fixation Left Tiffany Rodriguez MD Postoperative day: 2 Postoperative status: marginal pain control Postoperative status narrative: POD#2 s/p ORIF with IMN to L tibial fx. Postoperative plan: routine post-op care and see orders Postoperative plan narrative: 1. Optimize pain management 2. Ice & elevate. 3. Continue PT and Medical management. 4. 50 lb weight-bearing on the left lower extremity range of motion foot and knee. 5. SW for SNF dispo likely tomorrow. 6. Schedule follow-up in 10-14 days. Time Spent With Patient Time with patient: less than 15 minutes Quality MIPS - Admit Advanced Care Plan / Current Medications Measures: #47 ? Advanced Care Plan Clinician documentation instruction: document at admission. [] I confirmed that the patient's Advance Care Plan is present, code status is documented, or surrogate decision maker is listed in the patient?s medical record. [SATISFIES MIPS PERFORMANCE] If Yes, Stop Here [] The patient?s Advance Care plan is not present because: (select) [MIPS PERFORMANCE EXCEPTION/EXCLUSION] [] I confirmed today that the patient does not wish or was not able to name a surrogate decision maker or provide an Advance Care Plan. [] Hospice care is currently being provided or has been provided this calendar year [] I did NOT confirm today the presence of an Advance Care Plan or surrogate decision maker documented within the patient's medical record. [DOES NOT SATISFY MIPS PERFORMANCE] #130 - Documentation of Current Medications in the Medical Record Clinician documentation instruction: use macro the first time you see a patient. [] I have utilized all available immediate resources to obtain, update, or review the patient?s current medications. [SATISFIES MIPS PERFORMANCE] If Yes, Stop Here [] The patient is not eligible for medication reconciliation; the patient is in an emergent medical situation where delaying treatment would jeopardize the patient?s health. [MIPS PERFORMANCE EXCEPTION/EXCLUSION] [] I did NOT confirm, update or review the patient's current list of medications today. [DOES NOT SATISFY MIPS PERFORMANCE] MIPS - CL Central Venous Catheter Placement Measure: #76 ? Prevention of Central Venous Catheter (CVC) ? Related Bloodstream Infection Clinician documentation instruction: use macro every time you place a central line. [] All elements of Maximal Sterile Barrier Technique, including hand hygiene, skin prep, and sterile ultrasound technique (if used) were followed. [SATISFIES MIPS PERFORMANCE] If Yes, Stop Here [] If ?No?, the medical reason all elements were NOT used for medical reason [] (ex. emergent condition). [] Maximal Sterile Barrier Technique was not followed, no reason provided [DOES NOT SATISFY MIPS PERFORMANCE] MIPS - DC Heart Failure Measures: #5 - Heart Failure (HF): Angiotensin-Converting Enzyme (HORACIO) Inhibitor or Angiotensin Receptor Stevie (ARB) Therapy for Left Ventricular Systolic Dysfunction (LVSD) and #8 - Heart Failure (HF): Beta-Stevie Therapy for Left Ventricular Systolic Dysfunction (LVSD) Clinician documentation instruction: use macro at every CHF discharge. [] The patient has current or prior documentation of left ventricular ejection fraction (LVEF) less than 40%, or moderate or severely depressed left ventricular systolic function. Answer both: [SATISFIES MIPS PERFORMANCE] [] The patient was prescribed or already taking an Angiotensin-Converting Enzyme (HORACIO) Inhibitor, or Angiotensin Receptor Stevie (ARB). [] The patient was prescribed or already taking a beta-stevie. If Yes to Both, Stop Here [] Patient not prescribed/taking: [MIPS PERFORMANCE EXCEPTION/EXCLUSION] [] HORACIO or ARB for medical/patient/system reason(s) including [] (ex. allergy, intolerance, contraindication) [] Beta-stevie for medical/patient/system reason(s) including [] (ex. allergy, intolerance, contraindication) [] Patient not prescribed/taking: [DOES NOT SATISFY MIPS PERFORMANCE] [] HORACIO or ARB, no reason given [] Beta-stevie, no reason given
[2020-06-02 08:00] VITALS: BP 121/63; PULSE 90; RESP 17; TEMP 37.4; O2SAT 98
[2020-06-02] MEDS: LACTOBACILLUS ACIDOPHILUS TABLET 1 EACH PO (08:26)
[2020-06-02] MEDS: ASPIRIN EC 81 MG TABLET PO (08:26)
[2020-06-02] MEDS: DOCUSATE 100 MG CAPSULE PO (08:26)
[2020-06-02] MEDS: polyethylene glycoL 3350 17 GM POWD.PACK PO (08:26)
[2020-06-02] MEDS: SODIUM CHLORIDE 0.9% FLUSH 10 ML IV (08:27)
[2020-06-02] MEDS: ALBUTEROL HFA MDI 60 PUFF/8 GM INHALER INH (08:27)
[2020-06-02 08:44] VITALS: PULSE 90; RESP 16; O2SAT 98
--- NOTE | 2020-06-02 09:15 | PM.PN.1 ---
Subjective Subjective Date Patient Seen: 06/02/20 Time Patient Seen: 09:00 Interval history: She says pain is not well controlled with vicodin, dose has already been increased. Did work with PT yesterday, and plan again today. She understandably is feeling upset about the fracture. No other new issues at this time. Exam Vital Signs (past 8 hours): - 06/02/20 04:04 06/02/20 08:00 06/02/20 08:44 Temperature 99.0 F 99.4 F Pulse Rate 76 90 90 Respiratory Rate 15 17 16 Blood Pressure 119/71 121/63 Pulse Oximetry 95 98 98 Oxygen Delivery Method Room Air Oxygen Flow Rate 0 Narrative Exam Narrative: Alert, oriented, no acute distress HEENT: normocephalic, atraumatic, conjunctiva clear, sclera non-icteric, oral mucosa pink and moist Neck: supple, no JVD, trachea is midline Resp: Lungs CTA, non-labored breathing CV: RRR, no murmur or rubs Abd: soft, non-tender, normoactive BTs Skin: no lesions or rashes, dry and intact Neuro: Alert and oriented X 4 w/no focal deficits. Speech clear and coherent. Extremities: Left leg is in bandage which is clean Psyche: normal mood and affect Objective Labs Result Diagrams: 06/02/20 04:52 06/02/20 04:52 Labs: Laboratory Results - last 24 hr 06/02/20 06/02/20 06/02/20 02:00 04:52 04:52 WBC 9.8 RBC 2.70 L Hgb 8.1 L Hct 24.2 L MCV 89.9 MCH 30.0 MCHC 33.3 RDW 21.6 H Plt Count 193 Sodium 130 L Potassium 3.8 Chloride 101 Carbon Dioxide 26 BUN 10 Creatinine 0.52 Estimated GFR > 60.0 BUN/Creatinine Ratio 19.2 Glucose 101 Calcium 8.5 Urine Color Yellow Urine Appearance Clear Urine pH 7.0 Ur Specific [place] <=1.005 Urine Protein Negative Urine Glucose (UA) Negative Urine Ketones Negative Urine Occult Blood Negative Urine Nitrate Negative Urine Bilirubin Negative Urine Urobilinogen 0.2 Ur Leukocyte Esterase Negative Urine RBC None seen Urine WBC None seen Ur Squamous Epith Cells 0-1 /hpf Urine Bacteria None seen Ur Culture Indicated? Cult not indicated PFSH Medical History Allergic rhinitis Anxiety Asthma Colitis COPD (chronic obstructive pulmonary disease) Dyslipidemia Dyspnea on exertion Edema Emphysema of lung Foot fracture, left GERD (gastroesophageal reflux disease) Herpes zoster Hyponatremia Hypothyroidism Iron deficiency anemia Lung nodule, solitary Osteoarthritis Osteoporosis Pes planus Pneumonia Reactive airway disease Rheumatoid arthritis Scoliosis Sinusitis Toe pain Surgical History History of arthroplasty of right knee (08/2015) History of carpal tunnel release (1997) Hx of oral surgery (1988) Family History (Updated 05/30/20 @ 23:25 by HENNY Coyne) Mother Breast cancer Father Crohn's disease Macular degeneration COPD (chronic obstructive pulmonary disease) Social History household members: family and none Smoking Status: Former smoker alcohol intake: current Assessment & Plan Assessment & Plan narrative: Loretta Mayo is admitted for operative treatment of a left-sided tibial fracture. Left-sided tibial fracture, acute, s/p intramedullary nailing on 05/31, today POD#2 -pain control with hydrocone, tramadol and morphine -aspirin is discontinued for now -PT eval Acute blood loss anemia, from surgery -hemoglobin 8.1 today and now stabilized, no evidence of active bleeding -recheck hgb tomorrow Leukocytosis - no fevers, no cough, dysuria, or GI symptoms -WBC of 19, was newly elevated, but now down to 9.8, no signs or symptoms of infection -likely elevated as stress response from surgery Hyponatremia - Na was 127 after surgery, improved to 130 after IVF -no symptoms currently -ordered for IVF -most likely volume depletion in setting of surgery Rheumatoid arthritis, chronic -she administers methotrexate 25 mg subQ weekly on Sundays -ordered for methotrexate here Hypothyroidism, chronic -levothyroxine 75 mcg at bedtime GERD, chronic -normally takes omeprazole and will substitute with Protonix 20 mg p.o. daily Probable chronic COPD -she will continue albuterol MDI 2 puffs every 4 hours as needed for wheezing or shortness of breath Urinary frequency, present on admission -U/A negative for a UTI -likely due to IV fluids -monitor symptoms DVT PPx: SCD on right leg Consults: Dr. Rodriguez Orthopedics consult and involvement is appreciated. FEN: general diet. Dispo: home vs rehab pending surgery, likely DC tomorrow Code Status: Full code as documented on admission Quality MIPS - Admit Advanced Care Plan / Current Medications Measures: #47 ? Advanced Care Plan Clinician documentation instruction: document at admission. [] I confirmed that the patient's Advance Care Plan is present, code status is documented, or surrogate decision maker is listed in the patient?s medical record. [SATISFIES MIPS PERFORMANCE] If Yes, Stop Here [] The patient?s Advance Care plan is not present because: (select) [MIPS PERFORMANCE EXCEPTION/EXCLUSION] [] I confirmed today that the patient does not wish or was not able to name a surrogate decision maker or provide an Advance Care Plan. [] Hospice care is currently being provided or has been provided this calendar year [] I did NOT confirm today the presence of an Advance Care Plan or surrogate decision maker documented within the patient's medical record. [DOES NOT SATISFY MIPS PERFORMANCE] #130 - Documentation of Current Medications in the Medical Record Clinician documentation instruction: use macro the first time you see a patient. [] I have utilized all available immediate resources to obtain, update, or review the patient?s current medications. [SATISFIES MIPS PERFORMANCE] If Yes, Stop Here [] The patient is not eligible for medication reconciliation; the patient is in an emergent medical situation where delaying treatment would jeopardize the patient?s health. [MIPS PERFORMANCE EXCEPTION/EXCLUSION] [] I did NOT confirm, update or review the patient's current list of medications today. [DOES NOT SATISFY MIPS PERFORMANCE] MIPS - CL Central Venous Catheter Placement Measure: #76 ? Prevention of Central Venous Catheter (CVC) ? Related Bloodstream Infection Clinician documentation instruction: use macro every time you place a central line. [] All elements of Maximal Sterile Barrier Technique, including hand hygiene, skin prep, and sterile ultrasound technique (if used) were followed. [SATISFIES MIPS PERFORMANCE] If Yes, Stop Here [] If ?No?, the medical reason all elements were NOT used for medical reason [] (ex. emergent condition). [] Maximal Sterile Barrier Technique was not followed, no reason provided [DOES NOT SATISFY MIPS PERFORMANCE] MIPS - DC Heart Failure Measures: #5 - Heart Failure (HF): Angiotensin-Converting Enzyme (HORACIO) Inhibitor or Angiotensin Receptor Stevie (ARB) Therapy for Left Ventricular Systolic Dysfunction (LVSD) and #8 - Heart Failure (HF): Beta-Stevie Therapy for Left Ventricular Systolic Dysfunction (LVSD) Clinician documentation instruction: use macro at every CHF discharge. [] The patient has current or prior documentation of left ventricular ejection fraction (LVEF) less than 40%, or moderate or severely depressed left ventricular systolic function. Answer both: [SATISFIES MIPS PERFORMANCE] [] The patient was prescribed or already taking an Angiotensin-Converting Enzyme (HORACIO) Inhibitor, or Angiotensin Receptor Stevie (ARB). [] The patient was prescribed or already taking a beta-stevie. If Yes to Both, Stop Here [] Patient not prescribed/taking: [MIPS PERFORMANCE EXCEPTION/EXCLUSION] [] HORACIO or ARB for medical/patient/system reason(s) including [] (ex. allergy, intolerance, contraindication) [] Beta-stevie for medical/patient/system reason(s) including [] (ex. allergy, intolerance, contraindication) [] Patient not prescribed/taking: [DOES NOT SATISFY MIPS PERFORMANCE] [] HORACIO or ARB, no reason given [] Beta-stevie, no reason given
[2020-06-02] MEDS: HYDROCODONE/ACET 5/325 TABLET 2 TAB PO ×2 (09:22→13:25)
--- NOTE | 2020-06-02 10:32 | PT.IPTN ---
Current Diagnoses Unspecified fracture of upper end of left tibia, initial encounter for closed fracture (05/30/20) Surgery Performed Operation Date: 05/31/20 14:00 Actual Procedures p Intramedullary Nailing Tibia & removal of internal fixation(Left) - Tiffany Rodriguez MD Physical Therapy Treatment Note M2 PT-IP Current Condition Start: 06/01/20 09:06 Freq: NEEDED Status: Active Protocol: Document 06/01/20 10:43 AW (Rec: 06/01/20 12:33 AW [id number]) Physical Therapy Current Condition Current Condition Evaluation Date 06/01/20 Treatment Diagnosis L tibia fx s/p ORIF with IMN; difficulty in walking Onset Date 05/30/20 Weight Bearing Status Weight Bearing Status Partial Weight Bearing Allowed Weight Bearing Amount (enter % 50# PWB LLE or #) (%) M3 PT-IP Subjective Start: 06/01/20 09:06 Freq: NEEDED Status: Active Protocol: Document 06/02/20 10:32 AW (Rec: 06/02/20 10:46 AW [id number]) Subjective Physical Therapy Visit Type Type Treatment Note Visit Start Time 09:51 Visit Stop Time 10:30 Total Visit Minutes 39 Number of ENERGY TRADING ANALYST Visits 0 Physical Therapy Visit Comments Patient Comments Pt speaking with DCP as PT arrived. She is now agreeable to SNF. Therapy Pain Assessment Pain When Pain Assessed During Mobility Pain Present Pain Present Pain Reported Location Left Knee Scale Used not quantified but less reactive than previous encounters Pain Management Techniques Modification of Treatment,Re- positioning,Timing of Activity with Medications M4 PT-IP Mobility and Gait Start: 06/01/20 09:06 Freq: NEEDED Status: Active Protocol: Document 06/02/20 10:32 AW (Rec: 06/02/20 10:46 AW [id number]) PT-Bed Mobility Assessment Supine to Sit Supine to Sit Minimal Assistance,1 Person Assistance,Head of Bed Elevated Scooting Scooting to Edge of Bed Contact Guard Assistance PT-Transfer Assessment Sit to and From Stand Sit to and from Stand Minimal Assistance,Moderate Assistance,1 Person Assistance ,Use of Upper Extremities Equipment Transfer Assistive Device Gait Belt,Front Wheeled Walker Orthotic/Prosthetic Devices or Brace: No Transfers Transfer Destination Chair,Bedside Commode Transfer Technique Stand Step Pivot Transfer Ability Level of Assist Moderate Assistance,1 Person Assistance,Use of Upper Extremities Comments Mobility Comments Pt sitting up in bed, recently medicated, as PT arrived. She participated in supine ther ex including AROM and PROM foot, ankle, knee. With HOB elevated, pt completed supine to sit min A x 1 and scooted to EOB CGA to protect LLE from contacting the bed. In sitting, pt c/o increased pain with leg in dependent position, relieved by placing support on floor. Pt scooted maximally to EOB and was able to place her left foot on the floor. With instruction to pull her right foot back and to lean forward, pt stood min A x 1 and used the FWW to step pivot transfer to the [facility] set up 3 feet directly in front of her. She transferred mod A x 1 and sat to void. She was able to manage her own pericare with washcloth provided. Standing from the [facility] required mod A x 1 as pt had increased difficulty moving left hand from C handle the walker frame. Pt was then able to side step toward her left and pivot step backwards to line up with the bedside chair. Stand to sit required mod A x 1 due to pt fatigue and poor control of descent. She scooted herself back on the chair and was positioned there with call light and all needs in reach. Gait Assessment Gait Gait Assistance Required: Moderate Assistance,1 Person Assist Distance (Feet) 3 Able to Maintain Weight Bearing Status Yes During Gait Assistive Devices Assistive Device Gait Belt,Front Wheeled Walker Gait Deviations General Gait Pattern Antalgic,Decreased Stride Length,Decreased Feet Clearance,Flexed Trunk,Step-to Gait Factors Limiting Gait Function Factors Limiting Gait Function Decreased Activity Tolerance, Decreased Sensation,Decreased Strength,Limited Range of Motion,Pain,Poor Balance,Poor Safety Awareness Comments Gait Comments Pt able to take forward, backward, and side steps with FWW while maintaining 50# PWB LLE during transfers. PT-Balance Assessment Sitting Balance and Reactions Static Sitting Balance Ability Good Dynamic Sitting Balance Ability Fair Standing Balance and Reactions Static Standing Balance Ability Poor Dynamic Standing Balance Ability Poor Device Used FWW M5 PT-IP Objective Assessments Start: 06/01/20 09:06 Freq: NEEDED Status: Active Protocol: Document 06/01/20 10:43 AW (Rec: 06/01/20 12:33 AW [id number]) Orientation Orientation/Cognition Level of Alertness Alert Orientation Name,Day of Week,Place, Situation Language Function Ability No Deficits Noted Safety Awareness Understands Safety Issues Gross Range of Motion Upper Extremity ROM Assessment Within Functional Limits Lower Extremity ROM Assessment Left Impaired Strength Upper Extremity Strength Assessment Within Functional Limits Lower Extremity Strength Assessment Left Impaired Hip 3/5 Comments Strength Comments RLE grossly 4/5 secondary to pain Sensation Assessment Sensation Gross Sensation Left LE Impaired Light Touch Impaired Sensation Description Numbness M6 PT-IP Treatment Start: 06/01/20 09:06 Freq: NEEDED Status: Active Protocol: Document 06/02/20 10:32 AW (Rec: 06/02/20 10:46 AW [id number]) Physical Therapy Treatment Education Education Provided Weight Bearing Status,Safety Other Treatments Other Treatment Performed AROM left toes and ankle. PROM metatarsals 1-5, MTP great toe, ankle, and knee. M7 PT-IP Assessment and Plan Start: 06/01/20 09:06 Freq: NEEDED Status: Active Protocol: Document 06/02/20 10:32 AW (Rec: 06/02/20 10:46 AW [id number]) PT Summary Assessment and Plan Potential Rehabilitation Potential Good Status of Condition at Evaluation Stable Summary Impairments Pain,ROM,Strength,Balance, Sensation,Bed Mobility, Transfers,Gait,Activity Tolerance Progress Towards Goals Slow Progress due to Pain,Slow Progress due to Activity Tolerance Assessment Summary Pt was able to take steps up to 3 feet with FWW and good attention to 50# PWB LLE. Pain and decreased activity tolerance continue to limit pt 's mobility independence. She requires SNF rehab before safe return to home. Goals Bed Mobility Goal Standby Assistance Transfer Goal Standby Assistance,Front Wheeled Walker Gait Goal Standby Assistance,Front Wheel Walker Gait Distance 50 Other Goals LTG: improve ambulation to 100 feet with FWW SBA Days to Meet Goals 5 Frequency of Treatment Frequency Of Treatment Twice a Day Treatment Plan Physical Therapy Treatment Plan Bed Mobility Training,Transfer Training,Gait Training, Therapeutic Exercise,Balance Retraining,Post Op Education, Discharge Planning,Hot or Cold Pack,Neuromuscular Re-ed, Coordination Retraining Precautions Other Precautions 50# PWB LLE Recommendations To Nursing Amount of Assist Needed 1 Person Assist Discharge Recommendations PT Discharge Recommendations SNF Rehab Equipment Needed for Home Before defer to rehab setting Discharge
--- NOTE | 2020-06-02 11:01 | CM.DPC ---
DCP CONTINUED: HARDWOOD FALLER Student met with patient this morning at bedside patient was alert and oriented. Informed patient she is medically stable for D/C this afternoon. Educated patient about recommendations from ortho and therapy that a SNF placement is appropriate to help with rehabilitation needs. Patient agreed to D/C to [facility]. Spoke with Polina at [facility] she confirmed patient insurance has been cleared and she is accepted. Polina is working on transportation for a 1330 D/C. Provided patient with the signed copy of the Important Medicare Message. PLAN: Patient to D/C to [facility] this afternoon. Hospitalist verbally confirmed he will write orders. JES Garcia to finalize paperwork for D/C once orders are complete. VIVIAN Escalera MSW Student
--- NOTE | 2020-06-02 11:06 | CM.DANOTE ---
DCP/continued: Received call this AM from Rony Garcias from orthopedics this AM he reports from orthopedic standpoint patient medically stable to d/c to SNF today. PULP PLANT SUPERVISOR received call from August at [facility] indicating authorization has been obtained. VIVIAN student/Michael met with patient and confirmed patient in agreement to go to [facility] today. Attending provider updated and plans to write orders for today. [facility] expected to apple picker patient at 1:30pm. staff to finalize paperwork for discharge. [facility] to call back with nursing report number. P: [facility] today. VIVIAN Escalera
--- NOTE | 2020-06-02 11:24 | PM.DS.1 ---
History of Present Illness History of Present Illness Chief complaint: left ankle injury Narrative: Per H and P from Cari Combs 05/30/20 Loretta Mayo is 79-year-old female with a longstanding history of rheumatoid arthritis of about 20 years, severe osteoporosis, and severe left knee osteoarthritis, presented today after a mechanical fall at home resulting in a left sided tibial fracture. She was trying to drive herself to the store today when her foot got caught and she fell backwards and heard a snap in her left leg. She noted the acute onset of pain and deformity. She denies losing consciousness or hitting her head, denies shortness of breath, chest pain,, denies nausea or vomiting, she does endorse urinary frequency but would prefer not to have a catheter placed, denies diarrhea or constipation. In November of 2019 she underwent tibiotalar calcaneal fusion to correct her ankle and subtalar joint deformities by Dr. Ni. She has been out of her boot for a while and ambulating but unfortunately her left knee flared up. She had was seen recently and schedule for possible left knee arthroplasty. She has a CT scan of her left ankle ordered for Tuesday to see of her fusion is healed. In the ED, xray indicated an acute comminuted and slightly displaced proximal to mid tibial shaft fracture. She was seen by Dr. Tiffany Rodriguez who plans to take her into the OR for internal fixation by intermedullary nailing of the left tibia. Patient is afebrile, blood pressure 166/81, heart rate 88, respiratory rate 18, oxygen saturation of 97% on room air she weighs 70 kg with a BMI of 27.9. WBC is 7.9, RBC 3.55, hemoglobin 10.4, hematocrit 31.7, platelet count 274, sodium 131, glucose is 113, UA is negative for UTI and COVID-19 PCR is negative. Patient self administers methotrexate 25 mg every Tuesday and has requested that she be able to do so while she is here. Patient has a stated history of hypothyroidism and just recently had her TSH drawn and her levothyroxine was reduced from 100 mcg to 75 mcg for which she takes at bedtime. Discharge Providers Provider Date of admission: 05/30/20 18:31 Discharge Date: 06/02/20 Primary care physician: Jaycee Escobar PA-C Consults: 05/30/20 21:45 Consult to Pharmacy Routine Comment: Can pt inject own methotrexate? 05/31/20 19:01 Consult to Discharge Planning Routine Comment: Consult to Physical Therapy Evaluate & Treat Comment: Physician Instructions: Evaluate and Treat Consult to Respiratory Therapy Evaluate & Treat Comment: Physician Instructions: Evaluate and treat Discharge provider: Jeramie Elizalde MD Summary Hospital Course Discharge Diagnosis: 1. Left-sided tibial fracture, acute, s/p intramedullary nailing on 05/31, today POD#2 2 Acute blood loss anemia, from surgery 3. Leukocytosis - reactive from surgery, resolved 4. Hyponatremia - Na was 127 after surgery, improved to 130 after IVF 5. Rheumatoid arthritis, chronic 6. Hypothyroidism, chronic 7. GERD, chronic 8. Probable chronic COPD 9. Urinary frequency, present on admission Hospital Course: Ms. Mayo was admitted after a fall that caused left tibia fracture. She went to the OR for intermedullary nail on 05/31. She did well surgically. Afterwards she did have a drop of hemoglobin but it remained stable from 8.2->8.1 on day of discharge, with no evidence on day of discharge of acute bleeding. She was mildly hypovolemic with sodium of 127 that improved to 130 on day of discharge. The rest of her medical issues were stable in the hospital. She did have a transient leukocytosis as a stress response from surgery, never having any fevers, negative chest xray, unremarkable urinalysis and no other infectious symptoms. She worked with PT who recommended SNF for continued pain control and physical therapy which she agreed. Code Status: Full Code Discharge Time: 35 minutes Status at Discharge Cognitive/behavioral status at discharge: oriented Functional status at discharge: uses cane/walker (touch down weightbearing 50 lbs on left extremityh) Overall status at discharge: patient is not back to baseline Time Spent with Patient Time spent: Greater than 30 minutes Exam Vital Signs (past 8 hours): - 06/02/20 04:04 06/02/20 08:00 06/02/20 08:44 Temperature 99.0 F 99.4 F Pulse Rate 76 90 90 Respiratory Rate 15 17 16 Blood Pressure 119/71 121/63 Pulse Oximetry 95 98 98 Oxygen Delivery Method Room Air Oxygen Flow Rate 0 Narrative Exam Narrative: Alert, oriented, no acute distress HEENT: normocephalic, atraumatic, conjunctiva clear, sclera non-icteric, oral mucosa pink and moist Neck: supple, no JVD, trachea is midline Resp: Lungs CTA, non-labored breathing CV: RRR, no murmur or rubs Abd: soft, non-tender, normoactive BTs Skin: no lesions or rashes, dry and intact Neuro: Alert and oriented X 4 w/no focal deficits. Speech clear and coherent. Extremities: Left leg is in bandage which is clean Psyche: normal mood and affect Objective Labs Result Diagrams: 06/02/20 04:52 06/02/20 04:52 Labs: Laboratory Results - last 24 hr 06/02/20 06/02/20 06/02/20 02:00 04:52 04:52 WBC 9.8 RBC 2.70 L Hgb 8.1 L Hct 24.2 L MCV 89.9 MCH 30.0 MCHC 33.3 RDW 21.6 H Plt Count 193 Sodium 130 L Potassium 3.8 Chloride 101 Carbon Dioxide 26 BUN 10 Creatinine 0.52 Estimated GFR > 60.0 BUN/Creatinine Ratio 19.2 Glucose 101 Calcium 8.5 Urine Color Yellow Urine Appearance Clear Urine pH 7.0 Ur Specific [place] <=1.005 Urine Protein Negative Urine Glucose (UA) Negative Urine Ketones Negative Urine Occult Blood Negative Urine Nitrate Negative Urine Bilirubin Negative Urine Urobilinogen 0.2 Ur Leukocyte Esterase Negative Urine RBC None seen Urine WBC None seen Ur Squamous Epith Cells 0-1 /hpf Urine Bacteria None seen Ur Culture Indicated? Cult not indicated PFSH Medical History Allergic rhinitis Anxiety Asthma Colitis COPD (chronic obstructive pulmonary disease) Dyslipidemia Dyspnea on exertion Edema Emphysema of lung Foot fracture, left GERD (gastroesophageal reflux disease) Herpes zoster Hyponatremia Hypothyroidism Iron deficiency anemia Lung nodule, solitary Osteoarthritis Osteoporosis Pes planus Pneumonia Reactive airway disease Rheumatoid arthritis Scoliosis Sinusitis Toe pain Surgical History History of arthroplasty of right knee (08/2015) History of carpal tunnel release (1997) Hx of oral surgery (1988) Family History (Updated 05/30/20 @ 23:25 by HENNY Coyne) Mother Breast cancer Father Crohn's disease Macular degeneration COPD (chronic obstructive pulmonary disease) Social History household members: family and none Smoking Status: Former smoker alcohol intake: current Discharge Plan Discharge Plan Patient Disposition: SNF Provider Discharge Comment: July dc with Attending Hospitalist with [facility] 81 mg BID & [place] & F/U in 10-14 days. Ms. Mayo came in after a fall and was found to have a fractured left tibia. She had intermedullary nailing on 05/31/20. Afterward she had quite a bit of pain, that improved with norco. She worked with PT who recommended discharge to SNF. Discharge orders & Medications Prescriptions: New acetaminophen 325 mg Tablet 975 mg PO TID Qty: 30 RF: 0 polyethylene glycol 3350 17 gram Powder In Packet 17 gm PO DAILY Qty: 20 RF: 0 hydrocodone-acetaminophen 5-325 mg Tablet 2 tab PO Q4HR PRN (Reason: Pain, Moderate (4-6)) Qty: 20 RF: 0 aspirin 81 mg Tablet,Delayed Release (Dr/Ec) 81 mg PO BID Qty: 30 RF: 0 calcium carbonate 200 mg calcium (500 mg) Tablet,Chewable 500 mg PO PRN PRN (Reason: Dyspepsia) Qty: 12 RF: 0 docusate sodium [DOK] 100 mg Capsule 100 mg PO BID Qty: 30 RF: 0 ondansetron 4 mg Tablet,Disintegrating 4 mg PO Q4HR PRN (Reason: Nausea And Vomiting) Qty: 12 RF: 0 tramadol 50 mg Tablet 50 mg PO QID PRN (Reason: Pain, Moderate (4-6)) Qty: 20 RF: 0 Continued tramadol [Ultram] 50 mg tablet 50 mg PO Q6H PRN (Reason: pain) RF: 0 montelukast [Singulair] 10 mg Tablet 10 mg PO BEDTIME RF: 0 albuterol sulfate [ProAir HFA] 90 mcg/actuation Hfa Aerosol Inhaler 1 - 2 puff INHALATION Q4-6H PRN (Reason: Shortness Of Breath) RF: 0 methotrexate sodium (PF) 25 mg/mL Solution 25 mg SUBCUT QWEEK RF: 0 budesonide-formoterol [Symbicort] 160-4.5 mcg/actuation Hfa Aerosol Inhaler 2 puff INHALATION BID PRN (Reason: Shortness Of Breath) RF: 0 levothyroxine 75 mcg Capsule 75 mcg PO BEDTIME RF: 0 omeprazole 20 mg Capsule,Delayed Release(Dr/Ec) 20 mg PO DAILY RF: 0 Culturelle 10 billion cell Capsule 1 cap PO DAILY RF: 0 Discontinued docusate sodium [Colace] 100 mg capsule 100 mg PO BID PRN (Reason: Constipation) RF: 0 Follow up/Referrals: Jaycee Escobar PA-C [Primary Care Provider] - Discharge Health Status Multidrug resistant organism: No MDRO Diet/Activity/Treatments Diet: Regular Discharge Data Primary Care Provider: Jaycee Escobar Quality MIPS - Admit Advanced Care Plan / Current Medications Measures: #47 ? Advanced Care Plan Clinician documentation instruction: document at admission. [] I confirmed that the patient's Advance Care Plan is present, code status is documented, or surrogate decision maker is listed in the patient?s medical record. [SATISFIES MIPS PERFORMANCE] If Yes, Stop Here [] The patient?s Advance Care plan is not present because: (select) [MIPS PERFORMANCE EXCEPTION/EXCLUSION] [] I confirmed today that the patient does not wish or was not able to name a surrogate decision maker or provide an Advance Care Plan. [] Hospice care is currently being provided or has been provided this calendar year [] I did NOT confirm today the presence of an Advance Care Plan or surrogate decision maker documented within the patient's medical record. [DOES NOT SATISFY MIPS PERFORMANCE] #130 - Documentation of Current Medications in the Medical Record Clinician documentation instruction: use macro the first time you see a patient. [] I have utilized all available immediate resources to obtain, update, or review the patient?s current medications. [SATISFIES MIPS PERFORMANCE] If Yes, Stop Here [] The patient is not eligible for medication reconciliation; the patient is in an emergent medical situation where delaying treatment would jeopardize the patient?s health. [MIPS PERFORMANCE EXCEPTION/EXCLUSION] [] I did NOT confirm, update or review the patient's current list of medications today. [DOES NOT SATISFY MIPS PERFORMANCE] MIPS - CL Central Venous Catheter Placement Measure: #76 ? Prevention of Central Venous Catheter (CVC) ? Related Bloodstream Infection Clinician documentation instruction: use macro every time you place a central line. [] All elements of Maximal Sterile Barrier Technique, including hand hygiene, skin prep, and sterile ultrasound technique (if used) were followed. [SATISFIES MIPS PERFORMANCE] If Yes, Stop Here [] If ?No?, the medical reason all elements were NOT used for medical reason [] (ex. emergent condition). [] Maximal Sterile Barrier Technique was not followed, no reason provided [DOES NOT SATISFY MIPS PERFORMANCE] MIPS - DC Heart Failure Measures: #5 - Heart Failure (HF): Angiotensin-Converting Enzyme (HORACIO) Inhibitor or Angiotensin Receptor Stevie (ARB) Therapy for Left Ventricular Systolic Dysfunction (LVSD) and #8 - Heart Failure (HF): Beta-Stevie Therapy for Left Ventricular Systolic Dysfunction (LVSD) Clinician documentation instruction: use macro at every CHF discharge. [] The patient has current or prior documentation of left ventricular ejection fraction (LVEF) less than 40%, or moderate or severely depressed left ventricular systolic function. Answer both: [SATISFIES MIPS PERFORMANCE] [] The patient was prescribed or already taking an Angiotensin-Converting Enzyme (HORACIO) Inhibitor, or Angiotensin Receptor Stevie (ARB). [] The patient was prescribed or already taking a beta-stevie. If Yes to Both, Stop Here [] Patient not prescribed/taking: [MIPS PERFORMANCE EXCEPTION/EXCLUSION] [] HORCAIO or ARB for medical/patient/system reason(s) including [] (ex. allergy, intolerance, contraindication) [] Beta-stevie for medical/patient/system reason(s) including [] (ex. allergy, intolerance, contraindication) [] Patient not prescribed/taking: [DOES NOT SATISFY MIPS PERFORMANCE] [] HORACIO or ARB, no reason given [] Beta-stevie, no reason given
--- NOTE | 2020-06-02 11:31 | CM.DPNOTE ---
DCP: Assisting VIVIAN Foster in discharge. Printed out medication sheets for hospitalist to sign. Confirmed with Polina at [facility] that a hard copy for Tramadol is also needed, which hospital has completed. DC summary is pending. PASSR sent with signed medication sheets. tube room supervisor time is 1330. Nurse, Carley, is aware of poultry picker time, and has phone number to call report. Katie Metcalf RN/Counseling Services Manager
--- NOTE | 2020-06-02 12:32 | CM.DANOTE ---
Patient A&Ox4. VSS, afebrile on RA. LS CTA, medicated with PRN vicodin 2 tabs at 0930 this a.m with optimal pain control 2/10 sitting up in chair. Tolerated working with PT. LLE HORACIO wrap C/D/I +CMS, slight edema to foot +1. Pt verbalizes understanding and in agreement to discharge this afternoon to [facility]. RN called report to Lio. Pt awaiting daughter to accompany her.
--- NOTE | 2020-06-02 13:20 | PT.IPTN ---
Current Diagnoses Unspecified fracture of upper end of left tibia, initial encounter for closed fracture (05/30/20) Surgery Performed Operation Date: 05/31/20 14:00 Actual Procedures p Intramedullary Nailing Tibia & removal of internal fixation(Left) - Tiffany Rodriguez MD Physical Therapy Treatment Note M2 PT-IP Current Condition Start: 06/01/20 09:06 Freq: NEEDED Status: Discharge Protocol: Document 06/01/20 10:43 AW (Rec: 06/01/20 12:33 AW [id number]) Physical Therapy Current Condition Current Condition Evaluation Date 06/01/20 Treatment Diagnosis L tibia fx s/p ORIF with IMN; difficulty in walking Onset Date 05/30/20 Weight Bearing Status Weight Bearing Status Partial Weight Bearing Allowed Weight Bearing Amount (enter % 50# PWB LLE or #) (%) M3 PT-IP Subjective Start: 06/01/20 09:06 Freq: NEEDED Status: Discharge Protocol: Document 06/02/20 13:20 AW (Rec: 06/02/20 14:09 AW [id number]) Subjective Physical Therapy Visit Type Type Treatment Note Visit Start Time 13:01 Visit Stop Time 13:20 Total Visit Minutes 19 Notes Pt preparing for discharge Physical Therapy Visit Comments Patient Comments Pt would like to use the BSC and get dressed Patient Goals Discharging to SNF Therapy Pain Assessment Pain When Pain Assessed During Mobility Pain Present Pain Present Pain Reported M4 PT-IP Mobility and Gait Start: 06/01/20 09:06 Freq: NEEDED Status: Discharge Protocol: Document 06/02/20 13:20 AW (Rec: 06/02/20 14:09 AW [id number]) PT-Transfer Assessment Sit to and From Stand Sit to and from Stand Moderate Assistance,1 Person Assistance,Use of Upper Extremities Equipment Transfer Assistive Device Gait Belt,Front Wheeled Walker Orthotic/Prosthetic Devices or Brace: No Transfers Transfer Destination Chair,Bedside Commode Transfer Technique Stand Step Pivot Transfer Ability Level of Assist Moderate Assistance,1 Person Assistance,Use of Upper Extremities Comments Mobility Comments Pt was sitting up in the chair as PT arrived, requesting to use the toilet. She required mod assist to stand and mod assist to pivot 180 degrees to BSC. On return to the chair, pt required max assist for LB dressing tasks. Pt's daughter arrived to accompany transport . Pt was left with call light in reach. PT-Balance Assessment Sitting Balance and Reactions Static Sitting Balance Ability Good Dynamic Sitting Balance Ability Fair Standing Balance and Reactions Static Standing Balance Ability Poor Dynamic Standing Balance Ability Poor Device Used FWW M5 PT-IP Objective Assessments Start: 06/01/20 09:06 Freq: NEEDED Status: Discharge Protocol: Document 06/01/20 10:43 AW (Rec: 06/01/20 12:33 AW [id number]) Orientation Orientation/Cognition Level of Alertness Alert Orientation Name,Day of Week,Place, Situation Language Function Ability No Deficits Noted Safety Awareness Understands Safety Issues Gross Range of Motion Upper Extremity ROM Assessment Within Functional Limits Lower Extremity ROM Assessment Left Impaired Strength Upper Extremity Strength Assessment Within Functional Limits Lower Extremity Strength Assessment Left Impaired Hip 3/5 Comments Strength Comments RLE grossly 4/5 secondary to pain Sensation Assessment Sensation Gross Sensation Left LE Impaired Light Touch Impaired Sensation Description Numbness M6 PT-IP Treatment Start: 06/01/20 09:06 Freq: NEEDED Status: Discharge Protocol: Document 06/02/20 13:20 AW (Rec: 06/02/20 14:09 AW [id number]) Physical Therapy Treatment Education Education Provided Weight Bearing Status,Safety M7 PT-IP Assessment and Plan Start: 06/01/20 09:06 Freq: NEEDED Status: Discharge Protocol: Document 06/02/20 13:20 AW (Rec: 06/02/20 14:09 AW [id number]) PT Summary Assessment and Plan Potential Rehabilitation Potential Good Status of Condition at Evaluation Stable Summary Impairments Pain,ROM,Strength,Balance, Sensation,Bed Mobility, Transfers,Gait,Activity Tolerance Progress Towards Goals Slow Progress due to Pain,Slow Progress due to Activity Tolerance Assessment Summary Pt continues to require mod assist for transfers but is able to maintain her PWB status. SNF is required to improve strength and mobility independence. Goals Bed Mobility Goal Standby Assistance Transfer Goal Standby Assistance,Front Wheeled Walker Gait Goal Standby Assistance,Front Wheel Walker Gait Distance 50 Other Goals LTG: improve ambulation to 100 feet with FWW SBA Days to Meet Goals 5 Frequency of Treatment Frequency Of Treatment Twice a Day Treatment Plan Physical Therapy Treatment Plan Bed Mobility Training,Transfer Training,Gait Training, Therapeutic Exercise,Balance Retraining,Post Op Education, Discharge Planning,Hot or Cold Pack,Neuromuscular Re-ed, Coordination Retraining Precautions Other Precautions 50# PWB LLE Recommendations To Nursing Amount of Assist Needed 1 Person Assist Discharge Recommendations PT Discharge Recommendations SNF Rehab Equipment Needed for Home Before defer to rehab setting Discharge
== END 2020-06-02 13:42 | DRG 493 ==
LOC: ED 18:24 → AC 18:33
PROVIDERS: Nurse Practitioner Adult Health; Nurse Practitioner Family; Orthopaedic Surgery; Admitting Provider Internal Medicine; Emergency Provider Emergency Medicine; Family Provider Family Medicine; PCP Physician Assistant Medical; Referring Provider Emergency Medicine; Visit Provider Internal Medicine
PROC: 0QSH06Z Reposition Left Tibia with Intramedullary Internal Fixation Device, Open Approach (ICD-10-PCS; CPT 27759; principal; 2020-05-31 14:00)
DX: S82.102A Unspecified fracture of upper end of left tibia, initial encounter for closed fracture (principal); D62 Acute posthemorrhagic anemia; E87.1 Hypo-osmolality and hyponatremia; M81.0 Age-related osteoporosis without current pathological fracture; M06.9 Rheumatoid arthritis, unspecified; F17.210 Nicotine dependence, cigarettes, uncomplicated; J44.9 Chronic obstructive pulmonary disease, unspecified; E03.9 Hypothyroidism, unspecified; K21.9 Gastro-esophageal reflux disease without esophagitis; Z20.822 Contact with and (suspected) exposure to COVID-19; R35.0 Frequency of micturition; V48.4XXA Person boarding or alighting a car injured in noncollision transport accident, initial encounter
CPT/HCPCS: 29505; 36415; 73590; 73600; 73700; 76000; 80048; 80053; 81001; 83735; 85014; 85018; 85025; 85027; 87635; 94640; 94760; 96361; 96374; 96375; 97110; 97162; 97530; 99284; A9270; C9290; J1100; J2250; J2270; J2405; J2704; J3010; J7613; J9250

== ENCOUNTER → 2020-10-01 11:14 | Outpatient (CLI) | payer OTHER, SELFPAY ==
--- NOTE | 2020-10-01 | DI.US.S_ITS ---
PROCEDURE: US [facility] VENOUS LOW EXTREM LT INDICATIONS: EDEMA TECHNIQUE: Real-time imaging, as well as color and pulse Doppler interrogation, were performed of the lower extremity deep veins from the inguinal ligament to the popliteal fossa. COMPARISON: [facility], [facility] VENOUS LOW EXTREM LT, 05/23/2020, 8:53. FINDINGS: The common femoral, femoral and popliteal veins are normally compressible, and free of intraluminal thrombus. Color and pulse Doppler demonstrate normal phasic intraluminal flow. There is normal augmentation response to distal compression maneuver. IMPRESSION: No evidence of DVT in the left lower extremity. Dictated by: Marvin Eng M.D. on 10/01/2020 at 11:44 Approved by: Marvin Eng M.D. on 10/01/2020 at 11:45
== END ==
PROVIDERS: Family Provider Family Medicine; PCP Physician Assistant Medical; Referring Provider Orthopaedic Surgery; Visit Provider Orthopaedic Surgery
DX: M25.472 Effusion, left ankle (principal)
CPT/HCPCS: 93971

== ENCOUNTER 2021-07-17 06:18 | Inpatient (IN) | payer OTHER, SELFPAY ==
[2021-07-16 08:35] VITALS: BMI 26.8
[2021-07-17] VITALS (13 sets, daily range): BP systolic 106–150; BP diastolic 44–84; PULSE 76–88; RESP 11–18; TEMP 36.1–36.6; O2SAT 93–99; BMI 26.8
--- NOTE | 2021-07-17 | DI.RAD.S_ITS ---
PROCEDURE: XR TIBIA FIBULA LT 2V INDICATIONS: HARDWARE REMOVED AND REPLACE TECHNIQUE: 2 views of the tibia and fibula were acquired. COMPARISON: [facility], [place], XR TIBIA FIBULA LT 2V, 05/31/2020, 18:29. FINDINGS: Nondiagnostic fluoroscopic images of the tibia demonstrate instrumented ORIF of the tibia and hindfoot. IMPRESSION: Nondiagnostic fluoroscopic images of the tibia demonstrate instrumented ORIF of the tibia and hindfoot. Dictated by: Luis Angel Sagastume M.D. on 07/17/2021 at 14:52 Approved by: Luis Angel Sagastume M.D. on 07/17/2021 at 14:53
[2021-07-17] MEDS: LACTATED RINGERS 1,000 ML 42 ML IV ×2 (07:05→11:28)
[2021-07-17] MEDS: ACETAMINOPHEN 325 MG TABLET 975 MG PO ×3 (07:05→20:37)
[2021-07-17] MEDS: GABAPENTIN 300 MG CAPSULE PO (07:06)
[2021-07-17 07:10] LABS: COVID19 -Nasal RAPID Negative (Negative)
--- NOTE | 2021-07-17 07:31 | PM.PREOP ---
Pre-operative Note COVID-19 COVID-19 status: Negative Result date/Date tested (Pos, Neg/Pending): 07/17/21 Interval Note History & Physical reviewed/Exam performed by Physician: Yes Changes to H&P: No
[2021-07-17] MEDS: CLINDAMYCIN 900 MG/50 ML PIGGYBACK 50 MG IV ×2 (07:56→17:04)
[2021-07-17] MEDS: TRANEXAMIC ACID 1,000 MG in SODIUM CHLORIDE 0.9% 100 ML 200 ML IV ×2 (08:08→10:33)
--- NOTE | 2021-07-17 09:02 | SUR.OPER ---
Supine on padded OR bed, head on pillow, arms secured on padded arm boards at <90 degrees abduction, legs uncrossed, safety belt over the abdomen, tape over blanket over right lower legs. Right heel on gel pad and left heel on blankets.
[2021-07-17] MEDS: BUPIVACAINE 0.25% (PF) 60 ML, EPINEPHrine 0.3 MG INJ (09:38)
[2021-07-17] MEDS: VANCOMYCIN 1,000 MG VIAL 1000 MG TOP (13:30)
--- NOTE | 2021-07-17 14:42 | PM.PROC.1 ---
Procedures Date/Time Date of procedure: 07/17/21 Time of procedure: 14:23 Nerve Block Time out performed: Yes Local anesthetic used: bupivacaine 0.5% Location of anesthetic used: LEFT Nerve blocks: peroneal (popliteal) Procedure successful: Yes Patient tolerated procedure: well and no complications Complications: none Additional comments: Popliteal nerve block performed for post-op pain control at surgeon request. Patient was positioned with IV, O2, monitors and rescue meds available. Prepped and timeout performed. Target identified with continuous ultrasound guidance. 15mL of bupivicaine 0.25% with epi was injected perineurally with intermittent aspiration and injection. No blood, no paresthesias, no acute complications. Ultrasound pic attained.
--- NOTE | 2021-07-17 14:44 | PM.PROC.1 ---
Procedures Date/Time Date of procedure: 07/17/21 Time of procedure: 14:25 Nerve Block Time out performed: Yes Local anesthetic used: with epi Location of anesthetic used: LEFT Nerve blocks: femoral (adductor canal) Procedure successful: Yes Patient tolerated procedure: well and no complications Complications: none Additional comments: Adductor canal nerve block performed for post-op pain control at surgeon request. Patient was positioned with IV, O2, monitors and rescue meds available. Prepped and timeout performed. Target identified with continuous ultrasound guidance. 15mL of bupivicaine 0.25% with epi was injected perineurally with intermittent aspiration and injection. No blood, no paresthesias, no acute complications. Ultrasound pic attained.
--- NOTE | 2021-07-17 14:55 | PM.OP.1 ---
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 Intramedullary nailing left tibia nonunion. This was exchanged nailing as well as a repair of the new periprosthetic distal tibia fracture. Was exchanged nailing of the tibial shaft nonunion utilizing a tibial nail for a retrograde hindfoot arthrodesis margie to span both the hindfoot distal tibia fracture nonunion and the shaft nonunion, local bone graft was used from the calcaneus as well as reaming additional autograft. CPT code exchange nailing with grafting for nonunion [id number] 2. Removal of hardware from lower extremities multiple sites. Included tibial margie and interlocking screws with 3 separate incisions. Removal of Arthrex locking plate separate incision removal of Arthrex 7 0 headless screw separate incision CPT code 09164 x 5 This procedure was performed with a modifier 22 for a complex and difficult procedure rate requiring removal of multiple plates intramedullary nail and screws in then proximal tibia distal tibia ankle and hindfoot. This required nearly 90 minutes of hardware removal before being able to address the nonunion with standard fixation. Was greater than twice as complex as a routine tibial intramedullary rodding. He required debriding and preparation of the nonunion sites at both the proximal tibia and the distal tibia and as well as correction of the deformity correcting the rotation and valgus alignment. Required bone grafting. Required the temporary placement of reduction plate to help hold rotation and number a blocking screws for nail guidance. During the operation, the services of a physician assembler surgical garment were medically indicated and necessary to provide the exposure of the operative site for the surgical procedure and to maintain the limb in a proper position to carry out the operation safely and efficiently. Without a qualified administrative assistant being present this would extended the operative procedure and made the procedure technically more difficult to perform. Same procedure as scheduled: Yes Indications: The patient is a 80-year-old female with a difficult and complex lower extremity deformity. She has rheumatoid arthritis that is controlled with methotrexate. She had a series of events as that started out as a stress fracture that collapsed into severe valgus with a tibiotalar dislocation and later underwent a TTC fusion. After this healed she had a separate tibial shaft fracture that had an IM nail. This point she has a nonunion of the tibial shaft fracture and now a new separate distal tibial fracture that is periprosthetic around the distal intramedullary nail in above the TT see fusion essentially giving her a segmental tibial shaft severe valgus and external rotation. She has had profound osteoporosis that has progressed over the last 2 years from osteopenia 2 severe osteoporosis likely related to underlying conditions and a long period of nonweightbearing she had for many injuries and fractures. She has seen Endocrinology and is now on Forteo. She has a severe deformity that is not brace the bowl and will require correction order to restore alignment mobility and prevent a wound from developing. She requires removal of the hardware including the TT C plate and additional screws as well as the tibial margie and new fixation of the essentially segmental tibia fracture with a hindfoot intramedullary margie and bone grafting. Unfortunately the length of the required for require to bridge all the way up to the proximal tibia is longer than the hindfoot rods available so a tibia margie is planned to use as a intramedullary hindfoot margie in order to be a retrograde hindfoot nail ridging from the calcaneus to the proximal tibia with the goal of leaving enough space for an eventual total knee to her to her severe valgus arthritis symptoms at the knee as well. She has not had a fever and her labs so far have been normal no signs of infection discussed this would be a long surgery requiring hardware removal then the deformity correction and nonunion repair surgery. She has had additional office visits while in [place] at [place] and was offered additional referrals. She has chose to keep care here close to home. I have arranged with my arthroplasty partner Dr. Rodriguez to be available for the procedure to assess feasibility of total knee after her current a lower extremity injuries heal. Risks and benefits of the procedure and alternatives including amputation were discussed with the patient. She has elected to proceed. Risks are discussed in detail and include but are not limited to infection, nonunion malunion, persistent pain, wound healing problems, amputation, DVT, pulmonary embolism, stroke, paralysis, , symptomatic hardware, need for transfusion. She has elected to proceed with surgery. Consent has been signed. 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 abutting tibiotalar articulation Severe valgus and external rotation with gross instability through the distal fracture Osteoporosis Closure Type: primary Specimen(s): other (Swab sent for microbiology--left leg) Prosthetic devices, grafts, tissues, transplants, or devices: [place] T2 tibial nail 12 x 315 with 5.0 locking screws (1 proximal locking screw was placed through a rounded out 3 5 tubular plate to act as a large washer for the patient's poor bone) Three locking screws were placed proximally and 3 locking screws were placed distally Estimated Blood Loss (mL): 200 Blood products transfused: none Tourniquet time (min): 130 Procedure in detail: Patient was seen in the preoperative area the site of surgery marked informed consent confirmed. The site was marked. Final plans were discussed. The patient was brought back to the operating positioned supine on operative table. General anesthetic was administered. The patient was brought down to the end of the bed. A Parrish was placed. The left lower extremities prepped and draped in standard sterile fashion. A formal time-out procedure was performed confirming the patient's side and site of surgery administration of appropriate preoperative antibiotics. Parrish catheter was placed due to the anticipated length of the procedure. were in agreement. All implants were in the room and accounted for Attention turned to the left lower extremity. There is severe valgus deformity in external rotation. There is gross instability through the distal tibia fracture at the level of the ankle. There is no swelling erythema or effusion noted. Local anesthetic was injected into the subcutaneous tissue in the area of the planned incision. Esmarch was used for exsanguination tourniquet raised on the thigh to 250 mmHg. This was elevated for 130 minutes and then released and not reinflated. Attention was 1st turned to the heel. The guidewire and fluoroscopy was utilized to identify the end of the headless Arthrex 7.0 cannulated screw for the subtalar fusion. This was identified then a skin incision was made. The guidewire was inserted and the screw and screwdriver used to remove this. Next attention turned to the distal tibia on the medial side where incision was made to address the interlocking screws at the distal end of the tibial margie. This was taken down through the skin subcutaneous tissue. The to medial distal interlocking screws were removed through 1 incision and then a separate incision was made anteriorly to remove the anterior interlocking screw. Once this was completed attention was turned proximally and the leg was flexed up over a sterile triangle. Incision was made along the previous tibial nail incision at the inferior pole of the patella toward the tibial tubercle. The patella tendon was identified. This was a split midline and protected. Next the guidewire was used to identify the starting point just above the end of the intramedullary margie. Wire was advanced into the edge of the margie and then a small Reamer was used to clear out the bone from the top of the margie. The extractor device was then engaged once this was engaged attention was turned to the remaining proximal interlock screw and a separate medial incision was made to remove this screw. Once this was completed the nail was backslapped out of the tibia and removed. After this was completed the sterile triangle was removed the knee was extended again and attention was returned to the proximal tibia fracture site. A separate incision was made over the area of the fracture nonunion. This was just medial to the midline. It was taken down through the subcutaneous tissues. 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 A curette was used as well as rongeur to remove the fibrous tissue and expose the bone edges. An osteotome was then utilized to help clean out the fracture site. This was noted to be a fibrous nonunion. Once this was completed the bone edges were drilled to facilitate bleeding and a small T2 0.7 plate from the Barbi set was used as a preliminary reduction plate to help hold rotation compression on alignment of the proximal shaft fracture. This was placed down to bone and then 2 locking screws were placed proximally and then a nonlocking bicortical screw distally to provide some compression followed by a locking screw. The nonlocking screw was then removed and only unicortical locking screws were remaining. Attention was then turned distally and a separate incision was made over the previous lateral incision for the TT see fusion. The Arthrex TT see fusion plate and screws were then removed and the distal tibial nonunion was exposed this again was a fibrous nonunion. Cultures were taken. Sagastume and curettes were used to clean out the fibrous nonunion to bleeding bone. Soft tissues were mobilized but were quite [place] and rather stiff deformity. Was unable to gain a quite all of the length back and the reduction the talus road back with the tibia anterior meeting about the talar neck rather than at the top of the talar dome. Several efforts were made to bring the heel forward slightly and sent to the tibial talar joint a little more however each time the heel fell posterior this was felt to be blocking with some the remaining bone from the TT see fusion posteriorly and tight gaining the additional length in the and chronic nonunion was difficult. Ultimately slight anterior position T2 see fusion was accepted as this provided excellent bony apposition and appropriate coronal alignment. The ankle was temporarily pinned with guidewires then the entry point for the retrograde tibial margie was identified along the medial 3rd of the calcaneus in line with the tibial canal in calcaneus. This was entered in drilled from the calcaneus through the talus into the tibia. Incision was made on the plantar foot this was dissected bluntly down to bone. The entry reamers were then used and then the guide wire was exchanged for the ball-tipped wire this was carefully passed to the proximal tibia. Was noted to right anteriorly near the entry site of the previous antegrade tibial nail therefore a drill bit was used through the previous medial to lateral interlocking screw hole to act as a blocking screw to guide the guidewire and reamers posterior in the proximal tibia. This worked excellently. (the tourniquet was released prior to any reaming) At this point sequential flexible reamers starting at a 9 and going to a 10 and 01/23/2013 and 13.5 were used. They were getting good chatter starting at a 12 and went to a 13.5 and a 12 nail. The nail was measured. Dinuba length was right in between the 2 available nail length of 330 mm and 315 mm. 315 mm was chosen in order to prevent ending up with prominent distal nail. The nail was then placed. This did disrupt the pulmonary reduction plate at the proximal shaft fracture and slightly distract. Three locking screws were placed proximally the medial to lateral screw was placed through a 1/3 tubular plate used as a washer for her poor bone quality. This was routed out with a for to drill so the 5 both screw could pass through it this was done using the vice prosthetic lab technician and cooling. Once this was completed screw was passed. Once the proximal locking was completed attention was turned distally we confirmed levels in the talus and calcaneus. Rotation was again assessed it was felt that there was slightly too much internal rotation at the distal fracture so the temporary K-wire locking in place was carefully pulled back in the foot rotation was corrected and once we were happy with this alignment it was repinned. This was then locked in place distally using the dynamic screw. At this point the K-wires were then removed. The nail was black slap just a touch for additional compression and then the final static locking screws distally were placed. Next the wounds were irrigated. Next autograft bone using a curette from the calcaneus was obtained as well as the reamings we had saved at this was mixed with crushed cancellous chips and placed at both the proximal and distal tibial fracture nonunion sites. Once this was completed vancomycin powder was placed in the wounds. They were closed in layered fashion with 0 Vicryl 2-0 Vicryl and nylon suture. Some enzo were used proximally. Final fluoroscopic images determined appropriate fracture alignment and hardware placement. Dressings were placed with Xeroform gauze Tegaderm and a bulky Patel splint. Patient was woken from anesthesia and taken to recovery room in good condition. There no immediate complications from this procedure. All counts were correct. Dr. Rodriguez was also present for the crucial points in this case including confirming hardware placement and some rotation and alignment Complications: none Post-operative Condition: stable Disposition: PACU Plan for aftercare: Patient will be nonweightbearing on the left lower extremity for at least 2 weeks while the incisions heal then we will start some partial weight-bearing using the walker in a boot or a cast. We will also have her start using her bone stimulator after her 1st postop appointment. She will continue on her home medications. She will require inpatient hospital stay for pain control and monitoring. She will get labs. Will assess her blood level and she will work with physical therapy. She will use Lovenox while in the hospital for DVT prophylaxis and likely discharge with aspirin if doing well.
--- NOTE | 2021-07-17 15:10 | SUR.PHASEI ---
Report given to THANH So in preparation for transfer to acute care
--- NOTE | 2021-07-17 15:30 | SUR.PHASEI ---
Wheelchair and clothing delivered to patients room. Patient handed off to THANH oS. Patient A&O, Vital Signs Stable.
--- NOTE | 2021-07-17 16:14 | PC.NURSE ---
Pt arrives from PACU at 1520 awake A&Ox3, VSS, on RA. LLE elevated HORACIO wrapped Splint (air cast) c/d/i. She is able to wiggle her toes, they're warm and with full sensation cap refill <2 sec. Pt reports pain with movement behind her knee up to 7/10 but at rest 4/10, scheduled tylenol given. She is tolerating po intake. Parrish catheter in place draining CYU. LR at 100ml/hr. She is educated on IS, and repositioning every 2 hours. Daughter at bedside supportive. Continuous monitoring.
[2021-07-17] MEDS: LACTATED RINGERS 1,000 ML 100 ML IV (16:29)
[2021-07-17] MEDS: ALBUTEROL 2.5 MG/3 ML NEB (ADULT) INH ×2 (20:00→23:53)
[2021-07-17] MEDS: DOCUSATE 100 MG CAPSULE PO (20:37)
[2021-07-17] MEDS: MONTELUKAST 10 MG TABLET PO (20:37)
[2021-07-18] VITALS (12 sets, daily range): BP systolic 97–127; BP diastolic 39–64; PULSE 60–94; RESP 14–18; TEMP 36.3–37.1; O2SAT 93–99
[2021-07-18] MEDS: CLINDAMYCIN 900 MG/50 ML PIGGYBACK 50 MG IV (00:48)
[2021-07-18] MEDS: LACTATED RINGERS 1,000 ML 100 ML IV (04:05)
[2021-07-18] MEDS: ALBUTEROL 2.5 MG/3 ML NEB (ADULT) INH ×4 (05:07→18:22)
[2021-07-18 05:37] LABS: Hematocrit 26.6 % (36-46); Hemoglobin 9.1 g/dL (12.0-16.0); Mean Corpuscular HGB Conc 34.3 % (30-36); Mean Corpuscular Hemoglobin 34.1 PG (26-34); Mean Corpuscular Volume 99.3 fL (80-100); Platelet Count 208 X10^3/uL (150-400); Red Blood Cell Count 2.68 X10^6/uL (4.0-5.2); Red Cell Distribution Width 14.6 % (11.6-14.8); White Blood Cell Count 11.7 X10^3/uL (4.5-11.0)
[2021-07-18] MEDS: LEVOTHYROXINE 88 MCG TABLET PO (06:17)
[2021-07-18] MEDS: PANTOPRAZOLE DR 20 MG TABLET PO (06:17)
--- NOTE | 2021-07-18 07:45 | PM.PNPO.1 ---
Subjective Subjective Date Patient Seen: 07/18/21 Time Patient Seen: 08:28 Interval history: Sitting up comfortably in bed, has taken no pain medication other than Tylenol, but she wants to make sure tramadol is available if she needs it. Has not been OOB or worked w/ PT yet. We discussed that she will need to be nonweightbearing for at least 2 weeks. Exam Vital Signs (past 8 hours): - 07/17/21 23:54 07/18/21 00:15 07/18/21 05:08 Temperature 97.4 F L 97.7 F Pulse Rate 75 60 Respiratory Rate 17 17 Blood Pressure 97/52 L 98/53 L Pulse Oximetry 98 97 93 07/18/21 05:09 07/18/21 07:33 Temperature Pulse Rate 81 Respiratory Rate 16 Blood Pressure Pulse Oximetry 98 98 Oxygen Delivery Method Room Air Oxygen Flow Rate 0 Narrative Exam Narrative: LLE dressing CDI. Able to wiggle toes, brisk capillary refill, sensation intact. Intraoperative cultures pending. Objective Labs Result Diagrams: 07/18/21 04:45 Labs: Laboratory Results - last 24 hr 07/18/21 04:45 WBC 11.7 H RBC 2.68 L Hgb 9.1 L Hct 26.6 L MCV 99.3 MCH 34.1 H MCHC 34.3 RDW 14.6 Plt Count 208 PFSH Medical History (Updated 07/18/21 @ 07:47 by Briana Caro PA-C) Allergic rhinitis Anxiety Asthma Colitis COPD (chronic obstructive pulmonary disease) Dyslipidemia Dyspnea on exertion Edema Emphysema of lung Foot fracture, left GERD (gastroesophageal reflux disease) Herpes zoster Hyponatremia Hypothyroidism Iron deficiency anemia Lung nodule, solitary Osteoarthritis Osteoporosis Pes planus Pneumonia Reactive airway disease Rheumatoid arthritis Scoliosis Sinusitis Toe pain Surgical History (Updated 07/18/21 @ 07:47 by Briana Caro PA-C) History of ankle surgery (12/07/19) History of arthroplasty of right knee (08/2015) History of carpal tunnel release (1997) History of orthopedic surgery (05/30/20) Hx of oral surgery (1988) Family History (Updated 05/30/20 @ 23:25 by HENNY Coyne) Mother Breast cancer Father Crohn's disease Macular degeneration COPD (chronic obstructive pulmonary disease) Social History household members: children Smoking Status: Former smoker alcohol intake: current Assessment & Plan Post-op Assessment and plan (1) Status post surgical manipulation of ankle joint: Assessment and Plan narrative: Patient will be nonweightbearing on the left lower extremity for at least 2 weeks while the incisions heal then we will start some partial weight-bearing using the walker in a boot or a cast.? We will also have her start using her bone stimulator after her 1st postop appointment.? Will assess her blood level and she will work with physical therapy, possible d/c home tomorrow.? She will use Lovenox while in the hospital for DVT prophylaxis and likely discharge with aspirin if doing well. (2) Acute on chronic blood loss anemia: Assessment and Plan narrative: Chronic iron deficiency anemia w/ acute anemia d/t expected surgical blood loss. At this point, she is mildly hypotensive but not tachycardic. She is making urine. We will recheck labs in the morning and transfuse if appropriate. No intervention needed at this time. Postoperative Procedures: Procedures Operation Date: 07/17/21 07:45 Actual Procedure Side Surgeon p removal of hardware from lower extremity, multiple sites & removal of intramedullary margie exchanged for retrograde tibial nailing for hindfoot arthrodesis & fixation of segmental tibia fracture, nonunion, deformity correction Left Maria T Daley MD Postoperative day: 1
[2021-07-18] MEDS: ACETAMINOPHEN 325 MG TABLET 975 MG PO ×3 (08:55→21:05)
[2021-07-18] MEDS: DOCUSATE 100 MG CAPSULE PO ×2 (08:56→21:06)
[2021-07-18] MEDS: ENOXAPARIN 40 MG/0.4 ML SYRINGE SUBCUT (08:56)
--- NOTE | 2021-07-18 10:27 | PT.IIE ---
Current Diagnoses Acute posthemorrhagic anemia (07/17/21) Age-related osteoporosis with current pathological fracture, unspecified site, initial encounter for fracture (07/17/21) Periprosthetic fracture around unspecified internal prosthetic joint, initial encounter (07/17/21) Displaced oblique fracture of shaft of left tibia, subsequent encounter for closed fracture with nonunion (07/17/21) Presence of functional implant, unspecified (07/17/21) Other specified postprocedural states (07/17/21) Surgery Performed Operation Date: 07/17/21 07:45 Actual Procedures p removal of hardware from lower extremity, multiple sites & removal of intramedullary margie exchanged for retrograde tibial nailing for hindfoot arthrodesis & fixation of segmental tibia fracture, nonunion, deformity correction(Left) - Maria T Daley MD Medical History (Last Reviewed 05/30/20 @ 23:23 by HENNY Coyne) Allergic rhinitis Anxiety Asthma Colitis COPD (chronic obstructive pulmonary disease) Dyslipidemia Dyspnea on exertion Edema Emphysema of lung Foot fracture, left GERD (gastroesophageal reflux disease) Herpes zoster Hyponatremia Hypothyroidism Iron deficiency anemia Lung nodule, solitary Osteoarthritis Osteoporosis Pes planus Pneumonia Reactive airway disease Rheumatoid arthritis Scoliosis Sinusitis Toe pain Physical Therapy Inpatient Evaluation/Re-Eval M1 PT/OT-IP Prior Functional Status Start: 07/18/21 12:23 Freq: NEEDED Status: Active Protocol: Document 07/18/21 10:27 AB (Rec: 07/18/21 12:40 AB [id number]) Medical Review Prior Functional Status Medical History Reviewed Yes Communication able to make needs known Mobility and Gait pt stated that she is modified independent with all mobilities and ambulation using 4WW Social History Household Members none Living Arrangements House Number of Floors (Floors) One Floor Number of Stairs To Enter/Railing? 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; difficulty in walking Onset Date 07/17/21 M3 PT-IP Subjective Start: 07/18/21 12:23 Freq: NEEDED Status: Active Protocol: Document 07/18/21 10:27 AB (Rec: 07/18/21 [facility] Subjective Physical Therapy Visit Type Type Initial Evaluation Visit Start Time 10:27 Visit Stop Time 11:05 Total Visit Minutes 38 Number of ASBESTOS REMOVER Visits 0 Physical Therapy Visit Comments Patient Comments agreeable to do PT Therapy Pain Assessment Pain When Pain Assessed During Mobility Location Left Knee Scale Used moderate Description Throbbing Pain Management Techniques Apply Cold,Distraction, Elevation,Modification of Treatment,Re-positioning, Timing of Activity with Medications M4 PT-IP Mobility and Gait Start: 07/18/21 12:23 Freq: NEEDED Status: Active Protocol: Document 07/18/21 10:27 AB (Rec: 07/18/21 12:40 [place] [id number]) PT-Bed Mobility Assessment Supine to Sit Supine to Sit Minimal Assistance Sit to Supine Sit to Supine Minimal Assistance PT-Transfer Assessment Sit to and From Stand Sit to and from Stand Moderate Assistance,Maximum Assistance,1 Person Assistance ,Use of Upper Extremities Equipment Transfer Assistive Device Gait Belt,Front Wheeled Walker Comments Mobility Comments BP supine: 95/46. c/o slight feeling of ooziness. completed supine to sit min A with LLE. able to sit on EOB SBA. BP in sittin/50. pt is aware of her weight bearing precaution. completed sit to stand mod to max A and max cues and able to stand using FWW mod to max A. pt refused to transfer to the chair and wants to just go back in bed. completed sit to supine min A for LLE elevation to bed. positioned pt in bed. call light and table placed within reach. BP supine at end of PT session: 122/50 Gait Assessment Comments Gait Comments unable PT-Balance Assessment Sitting Balance and Reactions Static Sitting Balance Ability Good Dynamic Sitting Balance Ability Good Standing Balance and Reactions Static Standing Balance Ability Poor Dynamic Standing Balance Ability Poor Device Used FWW M5 PT-IP Objective Assessments Start: 07/18/21 12:23 Freq: NEEDED Status: Active Protocol: Document 07/18/21 10:27 AB (Rec: 07/18/21 12:40 AB [id number]) Orientation Orientation/Cognition Level of Alertness Alert Orientation Name,Place,Situation Language Function Ability No Deficits Noted Safety Awareness Decreased Safety Awareness Gross Range of Motion Lower Extremity ROM Assessment Left Impaired Impairments L ankle on soft cast Strength Lower Extremity Strength Assessment Bilaterally Impaired Comments Strength Comments LLE: 3-/5 RLE: 3+/5 Muscle Tone Muscle Tone WNL Yes M6 PT-IP Treatment Start: 07/18/21 12:23 Freq: NEEDED Status: Active Protocol: Document 07/18/21 10:27 AB (Rec: 07/18/21 12:40 AB [id number]) Physical Therapy Treatment Education Education Provided Weight Bearing Status,Safety M7 PT-IP Assessment and Plan Start: 07/18/21 12:23 Freq: NEEDED Status: Active Protocol: Document 07/18/21 10:27 AB (Rec: 07/18/21 12:40 AB [id number]) PT Summary Assessment and Plan Potential Rehabilitation Potential Fair Status of Condition at Evaluation Evolving Summary Impairments Pain,ROM,Strength,Balance, Coordination,Sensation,Tone, Cognition,Bed Mobility, Transfers,Gait,Activity Tolerance Assessment Summary pt requiring mod to max A with sit to stand but pt refused to do transfer to assess. pt plans to go home and will have her friend and then her daughter to assist her. pt has a manual w/c for her to use at home but does not have a FWW. d/c plan depending on progress and if friend/ daughter will be able to provide apppriate assistance to pt. will continue to assess progress. Goals Bed Mobility Goal Independent Transfer Goal Standby Assistance Gait Goal Standby Assistance,Front Wheel Walker,Four Wheel Walker Gait Distance 25 Days to Meet Goals 10 Frequency of Treatment Frequency Of Treatment Twice a Day Treatment Plan Physical Therapy Treatment Plan Bed Mobility Training,Transfer Training,Gait Training, Therapeutic Exercise,Balance Retraining,Post Op Education, Discharge Planning,Hot or Cold Pack,Neuromuscular Re-ed, Coordination Retraining,Manual Therapy Weight Bearing Status Weight Bearing Status Non-Weight Bearing Allowed Weight Bearing Amount (enter % LLE NWB or #) (%) Recommendations To Nursing Amount of Assist Needed 2 Person Assist Discharge Recommendations PT Discharge Recommendations Home with 24/7 Assist Available,Home Health,SNF Rehab,Home vs SNF Equipment Needed for Home Before FWW if pt goes home and not Discharge safe with 4WW Transportation Needs at Discharge Private Vehicle,Wheelchair/ Cabulance
--- NOTE | 2021-07-18 10:56 | PC.NURSE ---
Addendum entered by Justina Shaikh R.N. 07/18/21 14:21: bleeding at left knee drsg has slowed. Briana B[place]MINGHAM notified. She stated Dr. Daley will change tomorrow if needed. Original Note: Pt OOB, standing NWB left leg then back to bed. SBP 97 while pt in bed prior to sitting or standing. bleeding noted at folded 4x4 above cast. Left leg elevated on a pillow.
--- NOTE | 2021-07-18 13:45 | PT.IPTN ---
Current Diagnoses Acute posthemorrhagic anemia (07/17/21) Age-related osteoporosis with current pathological fracture, unspecified site, initial encounter for fracture (07/17/21) Periprosthetic fracture around unspecified internal prosthetic joint, initial encounter (07/17/21) Displaced oblique fracture of shaft of left tibia, subsequent encounter for closed fracture with nonunion (07/17/21) Presence of functional implant, unspecified (07/17/21) Other specified postprocedural states (07/17/21) Surgery Performed Operation Date: 07/17/21 07:45 Actual Procedures p removal of hardware from lower extremity, multiple sites & removal of intramedullary margie exchanged for retrograde tibial nailing for hindfoot arthrodesis & fixation of segmental tibia fracture, nonunion, deformity correction(Left) - Maria T Daley MD Physical Therapy Treatment Note M2 PT-IP Current Condition Start: 07/18/21 12:23 Freq: NEEDED Status: Active Protocol: Document 07/18/21 10:27 AB (Rec: 07/18/21 12:40 AB [id number]) Physical Therapy Current Condition Current Condition Evaluation Date 07/18/21 Treatment Diagnosis 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; difficulty in walking Onset Date 07/17/21 M3 PT-IP Subjective Start: 07/18/21 12:23 Freq: NEEDED Status: Active Protocol: Document 07/18/21 13:45 AB (Rec: 07/18/21 15:04 AB [email or web address]) Subjective Physical Therapy Visit Type Type Treatment Note Visit Start Time 13:45 Visit Stop Time 14:05 Total Visit Minutes 20 Number of FARM ADVISOR Visits 0 Physical Therapy Visit Comments Patient Comments agreeable to do PT Therapy Pain Assessment Pain When Pain Assessed During Mobility Pain Present Pain Present Pain Reported Location Left Knee Scale Used pain scale not stated Pain Management Techniques Apply Cold,Distraction, Modification of Treatment,Re- positioning,Timing of Activity with Medications M4 PT-IP Mobility and Gait Start: 07/18/21 12:23 Freq: NEEDED Status: Active Protocol: Document 07/18/21 13:45 AB (Rec: 07/18/21 15:04 AB [email or web address]) PT-Bed Mobility Assessment Supine to Sit Supine to Sit Minimal Assistance Sit to Supine Sit to Supine Minimal Assistance,Moderate Assistance PT-Transfer Assessment Sit to and From Stand Sit to and from Stand Moderate Assistance,Maximum Assistance,1 Person Assistance ,Use of Upper Extremities Equipment Transfer Assistive Device Gait Belt,Front Wheeled Walker Orthotic/Prosthetic Devices or Brace: Yes Comments Mobility Comments pt completed supine to sit min A for LLE movement. needs LLE to be support with initail sitting on EOB for comfort. completed sit to stand max A and unable to fully stand up. attempted again mod to max A and max cues and able to stand mod to max A using FWW for support. pt refused to transfer to sit on the chair or attempt ambulation. stated that she will sit up on the chair tomorrow. pt sat back on the EOB. requested to go back to bed. required mod A to elevate LE up to the bed. positioned pt in bed. pt refused SCD at this time. call light and table placed within reach. pt is concerned about bleeding on dressing of the L knee. nurse is aware. M5 PT-IP Objective Assessments Start: 07/18/21 12:23 Freq: NEEDED Status: Active Protocol: Document 07/18/21 10:27 AB (Rec: 07/18/21 12:40 AB [id number]) Orientation Orientation/Cognition Level of Alertness Alert Orientation Name,Place,Situation Language Function Ability No Deficits Noted Safety Awareness Decreased Safety Awareness Gross Range of Motion Lower Extremity ROM Assessment Left Impaired Impairments L ankle on soft cast Strength Lower Extremity Strength Assessment Bilaterally Impaired Comments Strength Comments LLE: 3-/5 RLE: 3+/5 Muscle Tone Muscle Tone WNL Yes M6 PT-IP Treatment Start: 07/18/21 12:23 Freq: NEEDED Status: Active Protocol: Document 07/18/21 13:45 AB (Rec: 07/18/21 15:04 AB [id number]) Physical Therapy Treatment Education Education Provided Weight Bearing Status,Safety M7 PT-IP Assessment and Plan Start: 07/18/21 12:23 Freq: NEEDED Status: Active Protocol: Document 07/18/21 13:45 AB (Rec: 07/18/21 15:04 AB [email or web address]) PT Summary Assessment and Plan Potential Rehabilitation Potential Fair Summary Impairments Pain,ROM,Strength,Balance, Coordination,Sensation,Tone, Cognition,Bed Mobility, Transfers,Gait,Activity Tolerance Progress Towards Goals Slow Progress due to Pain,Slow Progress due to Medical Issues,Slow Progress due to Activity Tolerance Assessment Summary pt requiring mod to max A with mobility and unable to tolerate much activity and unable to transfer or ambulate at this time. d/c plan depending on progress but at this time, pt may require SNF rehab. will continue to assess. Goals Bed Mobility Goal Independent Transfer Goal Standby Assistance Gait Goal Standby Assistance,Front Wheel Walker,Four Wheel Walker Gait Distance 25 Days to Meet Goals 10 Frequency of Treatment Frequency Of Treatment Twice a Day Treatment Plan Physical Therapy Treatment Plan Bed Mobility Training,Transfer Training,Gait Training, Therapeutic Exercise,Balance Retraining,Post Op Education, Discharge Planning,Hot or Cold Pack,Neuromuscular Re-ed, Coordination Retraining,Manual Therapy Weight Bearing Status Weight Bearing Status Non-Weight Bearing Allowed Weight Bearing Amount (enter % LLE NWB or #) (%) Recommendations To Nursing Amount of Assist Needed 2 Person Assist Discharge Recommendations PT Discharge Recommendations Home with 04/10 Assist Available,Home Health,SNF Rehab,Home vs SNF Equipment Needed for Home Before FWW if pt goes home and not Discharge safe with 4WW Transportation Needs at Discharge Private Vehicle,Wheelchair/ Cabulance
--- NOTE | 2021-07-18 15:24 | CM.DANOTE ---
Initial DCP Assessment Note Pt is a 80 yo female, resident of [place], Status post surgical manipulation of ankle joint by Dr Daley PCP: Jaycee Escobar Payer: Henry FINNEGAN Reviewed chart, PT recommending Home w/assist and HH vs SNF today; patient slow to mobilize and is requiring assist of 2 Met w/patient to introduce role. Patient lives alone, has secured help from friend and dtr upon DC, does not want to DC to SNF. Patient had DC to [facility] in May 2020 after ankle surgery. Discussed HH services and patient unsure if she would benefit from this, has hx of HH; cannot remember the agency Patient requests warm blankets at this time, states she is tired, requests CM team f/u tomorrow. Suggested patient may be DC tomorrow by ortho team...patient aware CM team will plan to follow closely for coordination of safest DCP available to patient. Patient has Henry FINNEGAN, if SNF needed, will need to remain admitted at least until Tuesday d/t auth need from [employer] [employer] Discharge Planning/Care Management CM Discharge Assessment Start: 07/18/21 15:21 Freq: Status: Active Protocol: Document 07/18/21 15:21 JANELLE (Rec: 07/18/21 15:24 JANELLE [id number]) Discharge Planning Assessment Assigned Vamp Marker VIVIAN Atkinson DPOA/Assigned Designee Name Kathy Veliz (daughter) Lance Silver (good friend) Contact Information Kathy: [phone] Lance: [phone] Advance Directives? Yes Advance Directives on File Yes History Provided By Patient,Medical Record Prior Living Arrangements House Household Members none Type of transporation used prior to Drives own vehicle admit Independent with ADL's Yes Is patient alert and oriented? Yes Patient/Family Preference OP PT Therapy Barriers to Discharge Yes Comment PT currently recommending home w/04/10 assist vs SNF, patient slow to improve today Discharge Plan Home Transportation Arrangement friend if home and facility van if SNF Referrals Initiated None needed Additional Comment At this time
[2021-07-18] MEDS: TRAMADOL 50 MG TABLET PO (21:05)
[2021-07-18] MEDS: MONTELUKAST 10 MG TABLET PO (21:06)
[2021-07-19] VITALS (8 sets, daily range): BP systolic 102–112; BP diastolic 49–54; PULSE 87–91; RESP 14–19; TEMP 36.2–37.1; O2SAT 92–98
[2021-07-19] MEDS: LEVOTHYROXINE 88 MCG TABLET PO (05:40)
[2021-07-19] MEDS: PANTOPRAZOLE DR 20 MG TABLET PO (05:40)
[2021-07-19] MEDS: TRAMADOL 50 MG TABLET PO ×2 (05:51→20:29)
--- NOTE | 2021-07-19 06:04 | PC.NURSE ---
Pt c/o spasm to her leg leg and pressure (could vistaril help/) , she states my cast feel like is too tight. pt CMS wnl.
[2021-07-19 06:12] LABS: Add Manual Diff / Slide Review NO; Basophils Absolute Auto 0 /uL (0-100); Basophils Percent Auto 0.6 % (0-2); Eosinophils Absolute Auto 200 /uL (0-450); Eosinophils Percent Auto 2.9 % (2-4); Hemoglobin 9.3 g/dL (12.0-16.0); Lymphocytes Absolute Auto 1400 /uL (1100-4500); Lymphocytes Percent Auto 18.4 % (25-40); Mean Corpuscular HGB Conc 34.5 % (30-36); Mean Corpuscular Volume 98.6 fL (80-100); Monocytes Absolute Auto 1200 /uL (0-900); Monocytes Percent Auto 16.5 % (3-14); Neutrophils Absolute Auto 4600 /uL (1500-7000); Neutrophils Percent Auto 61.6 % (50-75); Platelet Count 209 X10^3/uL (150-400); Red Blood Cell Count 2.74 X10^6/uL (4.0-5.2); Red Cell Distribution Width 14.8 % (11.6-14.8); White Blood Cell Count 7.5 X10^3/uL (4.5-11.0)
[2021-07-19] MEDS: ALBUTEROL 2.5 MG/3 ML NEB (ADULT) INH ×3 (07:20→20:47)
--- NOTE | 2021-07-19 09:02 | P.PN_ITS ---
Subjective Subjective Date Patient Seen: 07/19/21 Time Patient Seen: 09:13 Interval history: Postop day 2 status post Complex lower extremity reconstruction extension nailing left tibial nonunion, segmental both proximal and distal fractures with retrograde tibial as a hindfoot arthrodesis margie with bone grafting and hardware removal from multiple sites. Patient is doing okay this morning. Her block wore off. And she is having moderate pain. She is very sensitive to pain medications and is trying only to take Tylenol and tramadol. She is having some spasms. We will order her some Vistaril. She also endorses some lightheadedness and had some low blood p ressures yesterday. Heart rate is stable and hemoglobin 9.3 this morning. She was minimally able to work with therapy yesterday and required 2 person assist. She has not yet had a bowel movement. She has history of constipation. She has been getting Colace has MiraLax as needed wound make this daily. Parrish is still in place. Exam Vital Signs (past 8 hours): - 07/19/21 02:39 07/19/21 07:20 Temperature 97.2 F L Pulse Rate 90 Respiratory Rate 16 Blood Pressure 110/49 L Pulse Oximetry 96 95 Oxygen Delivery Method Room Air Oxygen Flow Rate 0 Narrative Exam Narrative: Alert oriented X 3 acute distress HEENT exam normocephalic atraumatic. Complains of sore throat Respiratory unlabored on room air sitting up eating breakfast Heart regular rate rhythm Chest: Complains of soreness across her lower ribcage and muscles. No bruising. exam Parrish in place. Yellow urine Musculoskeletal exam. Left lower extremity in splint. Moderate swelling. No erythema. Block now worn off. Endorses pain. Is able to wiggle toes. Endorses sensation. Feels like the splint is tight proximally. Siva wrap is unwrapped and this is loosened which provides relief. Compartments are soft. There is some bloody drainage on the proximal a visible and Tegaderm incision sites. No leakage beyond the dressing SCD on the contralateral lower extremity Objective Labs Result Diagrams: 07/19/21 05:18 Labs: Laboratory Results - last 24 hr 07/19/21 05:18 WBC 7.5 RBC 2.74 L Hgb 9.3 L Hct 27.0 L MCV 98.6 MCH 34.0 MCHC 34.5 RDW 14.8 Plt Count 209 Neut % (Auto) 61.6 Lymph % (Auto) 18.4 L [place] % (Auto) 16.5 H Eos % (Auto) 2.9 Baso % (Auto) 0.6 Neut # (Auto) 4600 Lymph # (Auto) 1400 [place] # (Auto) 1200 H Eos # (Auto) 200 Baso # (Auto) 0 PFSH Medical History Allergic rhinitis Anxiety Asthma Colitis COPD (chronic obstructive pulmonary disease) Dyslipidemia Dyspnea on exertion Edema Emphysema of lung Foot fracture, left GERD (gastroesophageal reflux disease) Herpes zoster Hyponatremia Hypothyroidism Iron deficiency anemia Lung nodule, solitary Osteoarthritis Osteoporosis Pes planus Pneumonia Reactive airway disease Rheumatoid arthritis Scoliosis Sinusitis Toe pain Surgical History History of ankle surgery (12/07/19) History of arthroplasty of right knee (08/2015) History of carpal tunnel release (1997) History of orthopedic surgery (05/30/20) Hx of oral surgery (1988) Family History Mother Breast cancer Father Crohn's disease Macular degeneration COPD (chronic obstructive pulmonary disease) Social History household members: none Smoking Status: Former smoker alcohol intake: current Assessment & Plan Post-op Postoperative Procedures: Procedures Operation Date: 07/17/21 07:45 Actual Procedure Side Surgeon p removal of hardware from lower extremity, multiple sites & removal of intramedullary margie exchanged for retrograde tibial nailing for hindfoot arthrodesis & fixation of segmental tibia fracture, nonunion, deformity correction Left Maria T Daley MD Postoperative day: 2 Postoperative status: marginal pain control and anemia Postoperative status narrative: Doing okay postop. but Marginal pain control. Block is now worn off. Tolerating a p.o. diet. Complains of some lightheadedness and postural hypotension. Also complains of sore throat and some soreness across her chest. This may be from positioning in surgery. I do not see any bruising. Was able to minimally work with therapy yesterday. Postoperative hemorrhagic anemia clinical status not currently requiring transfusion. Has not yet bowel movement. Does endorse passing gas. Parrish still in place due to limited mobility Postoperative plan: voiding trials Postoperative plan narrative: Block is now worn off. Will need to Work on pain control today. Tramadol as needed. Scheduled Tylenol. Will add scheduled gabapentin and as needed Vistaril. Patient has been sensitive to stronger narcotics so we will try to manage with these. Will need to work with physical therapy again and will need to have fully removed for voiding trial. Has passed gas but no bowel movement. Upgrade bowel regimen will be on Colace b.i.d. and MiraLax daily scheduled. Postoperative hemorrhagic anemia stable hemoglobin today. Heart rate okay. Does not meet transfusion criteria but will need to assess how she does with physical therapy regarding postural hypotension. Encourage p.o. intake. Requires continued inpatient care today. Hope is that if she avoids manages well with physical therapy and if pain control throughout the day possible discharge home tomorrow but will depend on these factors and assistance needed. Patient did complex surgery that requires nonweightbearing o r touchdown only on the left side and has limited capabilities due to chronic deconditioning. Lovenox for DVT prophylaxis while in the hospital-DC with aspirin 325 b.i.d. Time Spent With Patient Time with patient: 15-24 minutes Quality VTE Deep Vein Thrombosis/Pulmonary Embolism Present on Admission: No
[2021-07-19] MEDS: ACETAMINOPHEN 325 MG TABLET 975 MG PO ×3 (09:10→20:00)
[2021-07-19] MEDS: ENOXAPARIN 40 MG/0.4 ML SYRINGE SUBCUT (09:11)
[2021-07-19] MEDS: DOCUSATE 100 MG CAPSULE PO ×2 (09:11→20:29)
[2021-07-19] MEDS: hydrOXYzine pamoate 25 MG CAPSULE PO (09:14)
[2021-07-19] MEDS: GABAPENTIN 300 MG CAPSULE PO ×3 (09:15→20:29)
[2021-07-19] MEDS: polyethylene glycoL 3350 17 GM POWD.PACK PO (09:15)
--- NOTE | 2021-07-19 10:23 | PT.IPTN ---
Current Diagnoses Acute posthemorrhagic anemia (07/17/21) Age-related osteoporosis with current pathological fracture, unspecified site, initial encounter for fracture (07/17/21) Periprosthetic fracture around unspecified internal prosthetic joint, initial encounter (07/17/21) Displaced oblique fracture of shaft of left tibia, subsequent encounter for closed fracture with nonunion (07/17/21) Presence of functional implant, unspecified (07/17/21) Other specified postprocedural states (07/17/21) Surgery Performed Operation Date: 07/17/21 07:45 Actual Procedures p removal of hardware from lower extremity, multiple sites & removal of intramedullary margie exchanged for retrograde tibial nailing for hindfoot arthrodesis & fixation of segmental tibia fracture, nonunion, deformity correction(Left) - Maria T Daley MD Physical Therapy Treatment Note M2 PT-IP Current Condition Start: 07/18/21 12:23 Freq: NEEDED Status: Active Protocol: Document 07/18/21 10:27 AB (Rec: 07/18/21 12:40 AB [id number]) Physical Therapy Current Condition Current Condition Evaluation Date 07/18/21 Treatment Diagnosis 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; difficulty in walking Onset Date 07/17/21 M3 PT-IP Subjective Start: 07/18/21 12:23 Freq: NEEDED Status: Active Protocol: Document 07/19/21 10:23 AW (Rec: 07/19/21 12:45 AW [id number]) Subjective Physical Therapy Visit Type Type Treatment Note Visit Start Time 10:05 Visit Stop Time 10:23 Total Visit Minutes 18 Number of MELANGEUR OPERATOR Visits 0 Physical Therapy Visit Comments Patient Comments agreeable to do PT Therapy Pain Assessment Pain When Pain Assessed During Mobility Pain Present Pain Present Pain Reported Location Left Knee Scale Used pain scale not stated M4 PT-IP Mobility and Gait Start: 07/18/21 12:23 Freq: NEEDED Status: Active Protocol: Document 07/19/21 10:23 AW (Rec: 07/19/21 12:45 AW [id number]) PT-Bed Mobility Assessment Supine to Sit Supine to Sit Minimal Assistance PT-Transfer Assessment Sit to and From Stand Sit to and from Stand Moderate Assistance,1 Person Assistance,Use of Upper Extremities Equipment Transfer Assistive Device Gait Belt,Front Wheeled Walker Orthotic/Prosthetic Devices or Brace: Yes Transfers Transfer Destination Chair Transfer Technique Stand Step Pivot Transfer Ability Level of Assist Moderate Assistance,1 Person Assistance,Use of Upper Extremities Comments Mobility Comments Pt completed supine to sit min A and stood from the bed in lowest position mod A. Pt states she understands weightbearing restriction but functionally she has difficulty keeping LLE completely off the floor. She completed step pivot transfer to bedside chair (going to her right) mod A x 1 and was able to hover LLE except for touch down x 2. She was able to reposition herself on the chair. She was left with call light and tray table in reach. Gait Assessment Gait Gait Assistance Required: Moderate Assistance,1 Person Assist Distance (Feet) 3 Able to Maintain Weight Bearing Status Yes During Gait Assistive Devices Assistive Device Gait Belt,Front Wheeled Walker Orthotic/Prosthetic Devices or Brace: Yes Factors Limiting Gait Function Factors Limiting Gait Function Decreased Activity Tolerance, Decreased Strength,Pain,Poor Balance Comments Gait Comments Pt is largely able to keep LLE off the floor but does touch down/toe touch x 2-3 during transfer PT-Balance Assessment Sitting Balance and Reactions Static Sitting Balance Ability Good Dynamic Sitting Balance Ability Good Standing Balance and Reactions Static Standing Balance Ability Fair Dynamic Standing Balance Ability Poor Device Used FWW M5 PT-IP Objective Assessments Start: 07/18/21 12:23 Freq: NEEDED Status: Active Protocol: Document 07/18/21 10:27 AB (Rec: 07/18/21 12:40 AB [id number]) Orientation Orientation/Cognition Level of Alertness Alert Orientation Name,Place,Situation Language Function Ability No Deficits Noted Safety Awareness Decreased Safety Awareness Gross Range of Motion Lower Extremity ROM Assessment Left Impaired Impairments L ankle on soft cast Strength Lower Extremity Strength Assessment Bilaterally Impaired Comments Strength Comments LLE: 3-/5 RLE: 3+/5 Muscle Tone Muscle Tone WNL Yes M6 PT-IP Treatment Start: 07/18/21 12:23 Freq: NEEDED Status: Active Protocol: Document 07/19/21 10:23 AW (Rec: 07/19/21 12:45 AW [id number]) Physical Therapy Treatment Education Education Provided Weight Bearing Status,Safety M7 PT-IP Assessment and Plan Start: 07/18/21 12:23 Freq: NEEDED Status: Active Protocol: Document 07/19/21 10:23 AW (Rec: 07/19/21 12:45 AW [id number]) PT Summary Assessment and Plan Potential Rehabilitation Potential Good Summary Impairments Pain,ROM,Strength,Balance, Coordination,Sensation,Tone, Cognition,Bed Mobility, Transfers,Gait,Activity Tolerance Progress Towards Goals Slow Progress due to Pain,Slow Progress due to Medical Issues,Slow Progress due to Activity Tolerance Assessment Summary Pt was able to transfer using FWW and mod assist while keeping LLE off the floor ~80% of the time today. She states her friend will be able to stay with her and assist as much as needed at home. She has w/c, bedside commode, tub transfer bench and all other recommended equipment. If pt's friend can participate in caregiver training, pt may very well be safe to discharge home with 24/7 assist and home health therapies. Otherwise, PT would recommend SNF. Goals Bed Mobility Goal Independent Transfer Goal Standby Assistance Gait Goal Standby Assistance,Front Wheel Walker,Four Wheel Walker Gait Distance 25 Days to Meet Goals 10 Frequency of Treatment Frequency Of Treatment Twice a Day Treatment Plan Physical Therapy Treatment Plan Bed Mobility Training,Transfer Training,Gait Training, Therapeutic Exercise,Balance Retraining,Post Op Education, Discharge Planning,Hot or Cold Pack,Neuromuscular Re-ed, Coordination Retraining,Manual Therapy Other Recommendations and Next Treatment Follow up on pt having FWW at [facility]. If not, will need. Caregiver training with friend , Lance. Weight Bearing Status Weight Bearing Status Non-Weight Bearing Allowed Weight Bearing Amount (enter % LLE NWB or #) (%) Recommendations To Nursing Amount of Assist Needed 2 Person Assist Discharge Recommendations PT Discharge Recommendations Home with 24/7 Assist Available,Home Health,SNF Rehab,Home vs SNF Equipment Needed for Home Before FWW if pt goes home and not Discharge safe with 4WW Transportation Needs at Discharge Private Vehicle,Wheelchair/ Cabulance
--- NOTE | 2021-07-19 14:47 | CM.DPC ---
DCP Cont: Per PT, worked with pt today and she is making progress and was able to transfer and pt very adamant that she will d/c to home and her family member plans to stay with her and assist and will be bedside later today and PT will attempt to complete CG training once family member bedside to confirm safe plan of home. Pt states she would rather pay her family rather than go to SNF for assist. Plan: SW to follow closely for PT CG training today or tomorrow to confirm safe plan of home with family assist and r/o HH. Vanessa Franco MSW
--- NOTE | 2021-07-19 15:13 | PC.NURSE ---
Pt has been in chair now back to bed with sba pivot cms intact denies pain at rest.
[2021-07-19] MEDS: MONTELUKAST 10 MG TABLET PO (20:29)
[2021-07-20] VITALS: BP 102/51; PULSE 84; RESP 16; TEMP 36.7; O2SAT 96
[2021-07-20] MEDS: TRAMADOL 50 MG TABLET PO ×2 (01:21→09:17)
[2021-07-20 04:00] VITALS: BP 99/51; PULSE 81; RESP 18; TEMP 36.4; O2SAT 96
[2021-07-20] MEDS: LEVOTHYROXINE 88 MCG TABLET PO (06:14)
[2021-07-20] MEDS: PANTOPRAZOLE DR 20 MG TABLET PO (06:14)
[2021-07-20] MEDS: ACETAMINOPHEN 325 MG TABLET 975 MG PO (06:36)
--- NOTE | 2021-07-20 07:42 | P.DS_ITS ---
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 Intramedullary nailing left tibia nonunion.? This was exchanged nailing as well as a repair of the new periprosthetic distal tibia fracture.? Was exchanged nailing of the tibial shaft nonunion utilizing a tibial nail for a retrograde hindfoot arthrodesis margie to span both the hindfoot distal tibia fracture nonuni on and the shaft nonunion, local bone graft was used from the calcaneus as well as reaming additional autograft.? CPT code exchange nailing with grafting for nonunion 76119 2. Removal of hardware from lower extremities multiple sites.? Included tibial margie and interlocking screws with 3 separate incisions.? Removal of Arthrex locking plate separate incision removal of Arthrex 7 0 headless screw separate incision CPT code 28917 x 5 This procedure was performed with a modifier 22 for a complex and difficult procedure rate requiring removal of multiple plates intramedullary nail and screws in then proximal tibia distal tibia ankle and hindfoot.? This required nearly 90 minutes of hardware removal before being able to address the nonunion with standard fixation.? Was greater than twice as complex as a routine tibial intramedullary rodding.? He required debriding and preparation of the nonunion sites at both the proximal tibia and the distal tibia and as well as correction of the deformity correcting the rotation and valgus alignment.? Required bone grafting.? Required the temporary placement of reduction plate to help hold rotation and number a blocking screws for nail guidance. During the operation, the services of a physician surgical asst were medically indicated and necessary to provide the exposure of the operative site for the surgical procedure and to maintain the limb in a proper position to carry out the operation safely and efficiently.? Without a qualified hygiene assistant being present this would extended the operative procedure and made the procedure technically more difficult to perform. Same procedure as scheduled: Yes Indications: The patient is a 80-year-old female with a difficult and complex lower extremity deformity.? She has rheumatoid arthritis that is controlled with methotrexate.? She had a series of events as that started out as a stress fracture that collapsed into severe valgus with a tibiotalar dislocation and later underwent a TTC fusion.? After this healed she had a separate tibial shaft fracture that had an IM nail.? This point she has a nonunion of the tibial shaft fracture and now a new separate distal tibial fracture that is periprosthetic around the distal intramedullary nail in above the TT see fusion essentially giving her a se gmental tibial shaft severe valgus and external rotation.? She has had profound osteoporosis that has progressed over the last 2 years from osteopenia 2 severe osteoporosis likely related to underlying conditions and a long period of nonweightbearing she had for many injuries and fractures.? She has seen Endocrinology and is now on Forteo.? She has a severe deformity that is not brace the bowl and will require correction order to restore alignment mobility and prevent a wound from developing.? She requires removal of the hardware including the TT C plate and additional screws as well as the tibial margie and new fixation of the essentially segmental tibia fracture with a hindfoot intramedullary margie and bone grafting.? Unfortunately the length of the required for require to bridge all the way up to the proximal tibia is longer than the hindfoot rods available so a tibia margie is planned to use as a intramedullary hindfoot margie in order to be a retrograde hindfoot nail ridging from the calcane us to the proximal tibia with the goal of leaving enough space for an eventual total knee to her to her severe valgus arthritis symptoms at the knee as well. She has not had a fever and her labs so far have been normal no signs of infection discussed this would be a long surgery requiring hardware removal then the deformity correction and nonunion repair surgery.? She has had additional office visits while in [place] at [facility] and was offered additional referrals.? She has chose to keep care here close to home.? I have arranged with my arthroplasty partner Dr. Rodriguez to be available for the procedure to assess feasibility of total knee after her current a lower extremity injuries heal. Risks and benefits of the procedure and alternatives including amputation were discussed with the patient.? She has elected to proceed.? Risks are discussed in detail and include but are not limited to infection, nonunion malunion, persistent pain, wound healing problems, amputation, DVT, pulmonary embolism, stroke, paralysis, , symptomatic hardware, need for transfusion.? She has elected to proceed with surgery.? Consent has been signed. 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 abutting tibiotalar articulation Severe valgus and external rotation with gross instability through the distal fracture Osteoporosis Closure Type: primary Specimen(s): other (Swab sent for microbiology--left leg) Prosthetic devices, grafts, tissues, transplants, or devices: [place] T2 tibial nail 12 x 315 with 5.0 locking screws (1 proximal locking screw was placed through a rounded out 3 5 tubular plate to act as a large washer for the patient's poor bone) Three locking screws were placed proximally and 3 locking screws were placed distally Estimated Blood Loss (mL): 200 Blood products transfused: none Tourniquet time (min): 130 Discharge Providers Provider Date of admission: 07/17/21 06:18 Discharge Date: 07/20/21 Primary care physician: Jaycee Escobar PA-C Consults: 07/17/21 07:18 Consult to Anesthesiology Routine Comment: Consulting Provider: Anesthesiologist Reason for consultation: Post operative pain managment Has provider been notified: Yes 07/17/21 15:26 Consult to Discharge Planning Routine Comment: Consult to Physical Therapy Evaluate & Treat Comment: Nonweightbearing left lower extremity Physician Instructions: Evaluate and Treat Consult to Respiratory Therapy Evaluate & Treat Comment: Physician Instructions: Evaluate and treat Discharge provider: Briana Caro PA-C Summary Hospital Course Discharge Diagnosis: (1) Status post surgical manipulation of ankle joint: ? (2) Acute on chronic blood loss anemia: ? ? ? Hospital Course: Ms Mayo's hospital course was remarkable for difficulty w/ pain control and slow progress w/ PT. On POD# 3 she was feeling better and wanted to go home. She was eating and voiding without difficulty and her pain was well-controlled with Tylenol, Tramadol, and gabapentin. PT evaluated her throughout her stay and felt she needed home health services. Exam Vital Signs (past 8 hours): - 07/20/21 00:00 07/20/21 04:00 Temperature 98.1 F 97.5 F L Pulse Rate 84 81 Respiratory Rate 16 18 Blood Pressure 102/51 L 99/51 L Pulse Oximetry 96 96 Oxygen Delivery Method Room Air Oxygen Flow Rate 0 Narrative Exam Narrative: Wiggles toes, brisk capillary refill, sensation to light touch intact. Old bloody drainage at visible proximal end of dressing; dressing otherwise intact. Objective Labs Result Diagrams: 07/19/21 05:18 [facility] Medical History Allergic rhinitis Anxiety Asthma Colitis COPD (chronic obstructive pulmonary disease) Dyslipidemia Dyspnea on exertion Edema Emphysema of lung Foot fracture, left GERD (gastroesophageal reflux disease) Herpes zoster Hyponatremia Hypothyroidism Iron deficiency anemia Lung nodule, solitary Osteoarthritis Osteoporosis Pes planus Pneumonia Reactive airway disease Rheumatoid arthritis Scoliosis Sinusitis Toe pain Surgical History History of ankle surgery (12/07/19) History of arthroplasty of right knee (08/2015) History of carpal tunnel release (1997) History of orthopedic surgery (05/30/20) Hx of oral surgery (1988) Family History Mother Breast cancer Father Crohn's disease Macular degeneration COPD (chronic obstructive pulmonary disease) Social History household members: none Smoking Status: Former smoker alcohol intake: current Discharge Assessment & Plan Assessment and Plan Assessment: (1) Status post surgical manipulation of ankle joint: ? (2) Acute on chronic blood loss anemia: Plan of Treatment: 1) D/c w/ HHPT, ASA 325mg BID for VTE prophylaxis, multimodal pain control. NWB to LLE. Dressing to stay in place until f/u on 07/22/2021 w/ Dr Daley. 2) No intervention needed at this time. Discharge Plan Discharge Plan Patient Disposition: Home Health Service Provider Discharge Comment: Home health for PT. Discharge orders & Medications Prescriptions: New acetaminophen 325 mg Tablet 975 mg PO TID Qty: 180 1RF docusate sodium 100 mg Capsule 100 mg PO BID PRN (Reason: constipation) Qty: 60 0RF gabapentin [Neurontin] 300 mg Capsule 300 mg PO TID Qty: 90 1RF tramadol 50 mg Tablet 50 mg PO QID PRN (Reason: Pain, Moderate (4-6)) Qty: 120 1RF aspirin 325 mg tablet 325 mg PO BID Qty: 90 0RF Continued calcium carbonate 200 mg calcium (500 mg) Tablet,Chewable 500 mg PO PRN PRN (Reason: Dyspepsia) Qty: 12 0RF montelukast [Singulair] 10 mg Tablet 10 mg PO BEDTIME 0RF albuterol sulfate [ProAir HFA] 90 mcg/actuation Hfa Aerosol Inhaler 1 - 2 puff INHALATION Q4-6H PRN (Reason: Shortness Of Breath) 0RF methotrexate sodium (PF) 25 mg/mL Solution 25 mg SUBCUT QWEEK 0RF Rx Instructions: take every tuesday omeprazole 20 mg Capsule,Delayed Release(Dr/Ec) 20 mg PO DAILY 0RF Culturelle 10 billion cell Capsule 1 cap PO PRN PRN (Reason: Antibiotic use) 0RF levothyroxine 88 mcg Tablet 88 mcg PO DAILY 0RF polyethylene glycol 3350 17 gram powder in packet 17 gm PO DAILY PRN (Reason: Constipation) 0RF Discontinued ibuprofen 200 mg Tablet 600 mg PO DAILY PRN (Reason: Pain) 0RF Follow up/Referrals: Maria T Daley MD [Physician] - As previously scheduled (Follow up w/ Dr Daley on July 22, 2021 @ 10:30 am at [facility]) Jaycee Escobar PA-C [Primary Care Provider] - Diet/Activity/Treatments Diet: Diet as Tolerated Activity: Non-weightbearing to left leg x 2 weeks. Skin/Wound/Dressing Care Report to your healthcare provider any signs of infection, such as:: chills, fever, night sweats, unusual drainage and unusual redness Dressing: Do not remove dressing or get it wet until f/u appointment w/ Dr Daley. Visit Report/Discharge Packet Instructions: DI for Prescription Opioid Use Discharge Data Primary Care Provider: Jaycee Escobar Quality VTE Deep Vein Thrombosis/Pulmonary Embolism Present on Admission: No
[2021-07-20 08:14] VITALS: O2SAT 98
[2021-07-20] MEDS: ALBUTEROL 2.5 MG/3 ML NEB (ADULT) INH (08:14)
[2021-07-20] MEDS: DOCUSATE 100 MG CAPSULE PO (08:18)
[2021-07-20] MEDS: GABAPENTIN 300 MG CAPSULE PO (08:18)
[2021-07-20] MEDS: ENOXAPARIN 40 MG/0.4 ML SYRINGE SUBCUT (08:18)
[2021-07-20] MEDS: polyethylene glycoL 3350 17 GM POWD.PACK PO (08:18)
[2021-07-20 09:06] VITALS: BP 101/51; PULSE 84; RESP 16; TEMP 36.5; O2SAT 97
--- NOTE | 2021-07-20 09:50 | PT.IPTN ---
Current Diagnoses Acute posthemorrhagic anemia (07/17/21) Age-related osteoporosis with current pathological fracture, unspecified site, initial encounter for fracture (07/17/21) Periprosthetic fracture around unspecified internal prosthetic joint, initial encounter (07/17/21) Displaced oblique fracture of shaft of left tibia, subsequent encounter for closed fracture with nonunion (07/17/21) Presence of functional implant, unspecified (07/17/21) Other specified postprocedural states (07/17/21) Surgery Performed Operation Date: 07/17/21 07:45 Actual Procedures p removal of hardware from lower extremity, multiple sites & removal of intramedullary margie exchanged for retrograde tibial nailing for hindfoot arthrodesis & fixation of segmental tibia fracture, nonunion, deformity correction(Left) - Maria T Daley MD Physical Therapy Treatment Note M2 PT-IP Current Condition Start: 07/18/21 12:23 Freq: NEEDED Status: Discharge Protocol: Document 07/20/21 09:18 SP (Rec: 07/20/21 12:50 SP [id number]) Physical Therapy Current Condition Current Condition Evaluation Date 07/18/21 Treatment Diagnosis 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 Patient Goals Use commode and later going home with friend to assist her / as long as needs her. Therapy Pain Assessment Pain Present Pain Present Pain Reported Location Left Knee Scale Used pain scale not stated Description With Movement Pain Management Techniques Apply Cold,Distraction, Modification of Treatment,Re- positioning,Timing of Activity with Medications M4 PT-IP Mobility and Gait Start: 07/18/21 12:23 Freq: NEEDED Status: Discharge Protocol: Document 07/20/21 09:18 SP (Rec: 07/20/21 12:50 SP [id number]) PT-Transfer Assessment Sit to and From Stand Sit to and from Stand Minimal Assistance,Moderate Assistance,1 Person Assistance ,Use of Upper Extremities Equipment Transfer Assistive Device Gait Belt Orthotic/Prosthetic Devices or Brace: Yes Transfers Transfer Destination Chair,Bedside Commode Transfer Technique Squat Pivot Transfer Ability Level of Assist Minimal Assistance,1 Person Assistance,Use of Upper Extremities Comments Mobility Comments Pt seated at EOB, nurse and MS ACCESS DATABASE DEVELOPER in room when arrived preparing to transfer commode, pt refused use of fWW, pt states to hard with NWB LLE. TECHNICAL SALES REPRESENTATIVE educated nursing donned gait belt, suggested 30-45 deg angle positioning BSC to bed on right (was positioned 180 deg when arrived and was adjusted to 30 deg), instructed pt reaching across to opposite RUE and maintain NWB LLE. Pt completed Mod A x1 TECHNICAL SALES REPRESENTATIVE observed squat pivot transfer to R, noted LLE light contact to floor, low pain. Nursing left room, TECHNICAL SALES REPRESENTATIVE took over care. Pt able to void and self pericare. TECHNICAL SALES REPRESENTATIVE assisted donning brief, lifted self using BSC arm rests WB on RLE only. Pt rested sitting on commode then squat pivot to R on RLE to via pushing from L BSC arm rest and LUE across chair arm rest Min A for posterior support&gait belt to complete, good NWB LLE. Pt able to complete toe wiggling and modified LAQ LLE but states painful so stopped. Pt able scoot back fully in chair . TECHNICAL SALES REPRESENTATIVE elevated leg rest and provided CP to L knee and all needs in reach with call light in lap. Gait Assessment Gait Gait Assistance Required: Minimum Assistance,Moderate Assistance,1 Person Assist Distance (Feet) 3 Able to Maintain Weight Bearing Status Yes During Gait Assistive Devices Assistive Device Gait Belt Orthotic/Prosthetic Devices or Brace: Yes Factors Limiting Gait Function Factors Limiting Gait Function Decreased Activity Tolerance, Decreased Strength,Pain,Poor Balance,Poor Safety Awareness Comments Gait Comments Pt is largely able to keep LLE off the floor but does touch down/toe touch x 1 during transfers. squat pivot transfers x2 only. PT-Balance Assessment Sitting Balance and Reactions Static Sitting Balance Ability Normal Dynamic Sitting Balance Ability Good Standing Balance and Reactions Static Standing Balance Ability Fair Dynamic Standing Balance Ability Poor Device Used modified stand on RLE, squat pivot only M5 PT-IP Objective Assessments Start: 07/18/21 12:23 Freq: NEEDED Status: Discharge Protocol: Document 07/18/21 10:27 AB (Rec: 07/18/21 12:40 AB [id number]) Orientation Orientation/Cognition Level of Alertness Alert Orientation Name,Place,Situation Language Function Ability No Deficits Noted Safety Awareness Decreased Safety Awareness Gross Range of Motion Lower Extremity ROM Assessment Left Impaired Impairments L ankle on soft cast Strength Lower Extremity Strength Assessment Bilaterally Impaired Comments Strength Comments LLE: 3-/5 RLE: 3+/5 Muscle Tone Muscle Tone WNL Yes M6 PT-IP Treatment Start: 07/18/21 12:23 Freq: NEEDED Status: Discharge Protocol: Document 07/20/21 09:18 SP (Rec: 07/20/21 12:50 SP [id number]) Physical Therapy Treatment Exercises Exercises Seated Knee Flexion/Extension Education Education Provided Weight Bearing Status,Safety Other Treatments Other Treatment Performed Toe flexion/ extension, LAQ LLE. M7 PT-IP Assessment and Plan Start: 07/18/21 12:23 Freq: NEEDED Status: Discharge Protocol: Document 07/20/21 09:18 SP (Rec: 07/20/21 12:50 SP [id number]) PT Summary Assessment and Plan Potential Rehabilitation Potential Good Status of Condition at Evaluation Stable Summary Impairments Pain,ROM,Strength,Balance, Coordination,Sensation,Tone, Cognition,Bed Mobility, Transfers,Gait,Activity Tolerance Progress Towards Goals Progressing Toward Goals,Slow Progress due to Pain,Slow Progress due to Activity Tolerance Assessment Summary Pt was only willing to squat pivot transfer bed>BSC> chair min-mod assist while keeping LLE off the floor ~90% of the time today. She states her friend will be able to stay with her and assist 04/10 as much as needed at home. She has w/c, bedside commode, tub transfer bench and all other recommended equipment. Pt states her friend will be in later and if really need can do CGT. Will continue to assess progress. Pt requires Min- Mod A squat pivot transfer, refuses to use FWW stating to hard to maintain NWB for the 2 weeks. Pt is ok to return home 04/10 with friend to assist her HHPT recommending at this time. Goals Bed Mobility Goal Independent Transfer Goal Standby Assistance Gait Goal Standby Assistance,Front Wheel Walker,Four Wheel Walker Gait Distance 25 Days to Meet Goals 10 Frequency of Treatment Frequency Of Treatment Twice a Day Treatment Plan Physical Therapy Treatment Plan Bed Mobility Training,Transfer Training,Gait Training, Therapeutic Exercise,Balance Retraining,Post Op Education, Discharge Planning,Hot or Cold Pack,Neuromuscular Re-ed, Coordination Retraining,Manual Therapy Other Recommendations and Next Treatment Caregiver training with friend Focus Lance. Transfers. Weight Bearing Status Weight Bearing Status Non-Weight Bearing Allowed Weight Bearing Amount (enter % LLE NWB or #) (%) Recommendations To Nursing Amount of Assist Needed 1 Person Assist Discharge Recommendations PT Discharge Recommendations Home with 04/10 Assist Available,Home Health Equipment Needed for Home Before Pt has FWW at home to use, Discharge prefers to squat pivot. Transportation Needs at Discharge Private Vehicle
--- NOTE | 2021-07-20 11:37 | PC.NURSE ---
Discharge instructions reviewed with patient and her friend (who will be staying with her to help care for her). She states understanding and has no further questions at this time. IV dc'd intact. Dressing and soft cast with ike wrap in place and remain intact. Patient has follow up scheduled in office this week. INstructed to call surgeon's office with questions or concerns.
--- NOTE | 2021-07-20 12:56 | CM.DPNOTE ---
Faxed referral packet per Kristin to [facility] and received fax conf. Radha Bravo CM Assist.
--- NOTE | 2021-07-20 16:12 | CM.DANOTE ---
DCP/Assessment: Reviewed chart. Order obtained for HH. Attempted to meet with patient to discuss home health options. Placed call to patient via cell phone and discussed home health options. Patient aware and agreeable to HH and has no preference in agencies. However, she believes that she has used [facility] in the past. She would like that agency if possible. 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 No additional needs identified. Orders and F2F completed. P: Home with [facility] today. VIVIAN Escalera Discharge Planning/Care Management CM Discharge Assessment Start: 07/18/21 15:21 Freq: Status: Discharge Protocol: Document 07/18/21 15:21 JANELLE (Rec: 07/18/21 15:24 JANELLE [id number]) Discharge Planning Assessment Assigned Diversified Crops Farmer VIVIAN Atkinson DPOA/Assigned Designee Name Kathy Veliz (daughter) Lance Silver (good friend) Contact Information Kathy: [phone] Lance: [phone] Advance Directives? Yes Advance Directives on File Yes History Provided By Patient,Medical Record Prior Living Arrangements House Household Members none Type of transporation used prior to Drives own vehicle admit Independent with ADL's Yes Is patient alert and oriented? Yes Patient/Family Preference OP PT Therapy Barriers to Discharge Yes Comment PT currently recommending home assist vs SNF, patient slow to improve today Discharge Plan Home Transportation Arrangement friend if home and facility van if SNF Referrals Initiated None needed Additional Comment At this time Pre-Anesthesia Assessment Start: 07/16/21 08:35 Freq: Status: Complete Protocol: Document 07/16/21 08:35 CAB (Rec: 07/16/21 09:27 CAB [id number]) Pre-Anesthesia Assessment Patient Information Reviewed Via Phone Assessment Assessment Completed With Patient Diagnostic Results BMP/CMP,CBC,EKG Comment Outside labs/ECG(2019) scanned , COVID screen-needs RAPID on admit Primary Care Provider Jaycee Escobar Seen Specialist in Last 12 Months Yes Specialist Seen Orthopedist,Other Comment Rheumatology Primary Language Ghanaian Preferred Language Ghanaian Shade Cutter Required No Height 154.94 cm Weight 64.41 kg Body Mass Index (BMI) 26.8 Hearing Ability Normal Visual Assist Magnifying Glass Dentition Type Teeth, Natural Present Barriers to Learning None Hx Anesthesia Reactions Yes: Long time coming out of anesthesia w/RT TKA'16 Hx Family Anesthesia Reaction No Hx Malignant Hyperthermia No Hx Blood Transfusions No Hx Blood Transfusion Reaction No Anesthesia Review Requested No: Prior review 12/05/19 scanned to record Chemical Recovery Operator No alcohol intake current alcohol intake frequency holidays/special occasions only Smoking Status Former smoker how long ago did patient quit smoking August 2019 Substance Use Type does not use Pain Present Pain Reported Musculoskeletal Symptoms Abnormal Gait,Difficulty Walking,Joint Pain History of Falling (Recent or History of No ) Patient is completely paralyzed or No completely immobile Prosthesis or Orthotic Device Front Wheel Walker Mental Status Oriented to own ability Comment Unable to bear weight on left leg Is patient on oxygen? No Does patient have ELIZABETH/SOB Yes: ELIZABETH r/t COPD Hx Sleep Apnea No CPAP/BIPAP use not prescribed Currently Taking a Beta Stevie No Can You Climb a Flight of Stairs Without No SOB Hx Chest Pain No Hx SOB Yes: ELIZABETH r/t COPD Hx Syncope or Dizziness No Anti-Coagulant Therapy No Has a Seed Service Advisor No Cardiac Testing No Hx Pacemaker/ICD No Pacemaker Rep Required? No Cardiac Clearance Received Not Applicable Diet Type At Home Regular dysphagia No Gastrointestinal Symptoms Constipation,Reflux Urinary Catheter Present No Hx Urinary Self Catheterization No Diabetes No HgbA1C 5.6 Date 07/09/21 Patient No Lactating No Presence of External or Internal Medical Yes: right tka, lt ankle plate Devices and screws, left tibia Have you had any close contact with No someone diagnosed with COVID-19? Received a COVID vaccine? Yes Received all doses? Yes Marital Status Lives With children Prior Living Arrangements House Number of Floors (Floors) One Floor Support System Child/Children Does the Patient Have Assistance After Yes: Daughters, friend will Surgery trade off staying w/pt @ [place] Patient Discharge Plan Description Return Home Comment Pt advised 1-2 day length of stay per surgeon Feels Safe in Current Environment Yes Been Physically Hurt or Threatened By a No Person in Current Environment Do you have thoughts of harming yourself None or others? Are you currently considering suicide? No Do you have a plan to hurt yourself or No Plan others? Do You Have Any Spiritual Beliefs That No May Affect Your HC Choices? Do You Have Any Cultural Practices That No May Affect Your HC Choices? Comment Hi Who Can We Speak to About Patient's Care Family, friends Identifying Code for Release of Patient Declines to issue Information Health Care Proxy/Next of Kin Taylor (daughter) Health Care Proxy Emergency Contact Name Kathy Veliz (daughter) Lance Silver (good friend) Emergency Contact Phone Number Kathy: [phone] Lance: [phone] Advance Directives? Yes Power of Fixed Income Trading Vice President Yes Power of Fixed Income Trading Vice President Name Chuck Shen (banking attorney) Power of Fixed Income Trading Vice President PAC Instructions Do not shave/clip surgical site,Durable medical equipment ,Medications to take/avoid, Nasal antibiotic,No ETOH/ petroleum product on skin DOS, NPO,Post-op transportation,Pre -surgical wash,Sensory aids, Sturdy shoes/comfortable clothes,Do not bring valuables and remove jewelry Comment Pt not told to use mupirocin
== END 2021-07-20 11:58 | disposition home health service (06) | DRG 493 ==
PROVIDERS: Admitting Provider Orthopaedic Surgery Foot and Ankle Surgery; Family Provider Family Medicine; PCP Physician Assistant Medical; Referring Provider Physician Assistant Medical; Visit Provider Orthopaedic Surgery Foot and Ankle Surgery
PROC: 0QSH06Z Reposition Left Tibia with Intramedullary Internal Fixation Device, Open Approach (ICD-10-PCS; CPT 27870; principal; 2021-07-17 07:45)
DX: M80.062 Age-related osteoporosis with current pathological fracture, left lower leg (principal); D62 Acute posthemorrhagic anemia; G89.18 Other acute postprocedural pain; J44.9 Chronic obstructive pulmonary disease, unspecified; K21.9 Gastro-esophageal reflux disease without esophagitis; E03.9 Hypothyroidism, unspecified; K59.00 Constipation, unspecified; M06.9 Rheumatoid arthritis, unspecified; Z20.822 Contact with and (suspected) exposure to COVID-19; Z87.891 Personal history of nicotine dependence
CPT/HCPCS: 36415; 73590; 76000; 85025; 85027; 87070; 87075; 87205; 87635; 94640; 94760; 97162; 97530; C9803; C1889; J0171; J0330; J1100; J1170; J1650; J2405; J2704; J3010; J7613

== ENCOUNTER → 2023-07-06 14:59 | Outpatient (CLI) | payer OTHER, SELFPAY ==
[2021-07-17 15:58] VITALS: BMI 26.8
--- NOTE | 2023-07-06 | DI.RAD.S_ITS ---
PROCEDURE: XR DEXA AXIAL SKELETON INDICATIONS: Age-related osteoporosis COMPARISON: [facility], CR, XR DEXA AXIAL SKELETON, 05/22/2018, 10:32. FINDINGS: Lumbar Spine: L1-L2 Bone mineral density 0.789 g/cm2, T score -1.7. Left Hip: Bone mineral density 0.575 g/cm2, T score -3.0. Left Femoral Neck: Bone mineral density 0.544 g/cm2, T score -2.7. Right Hip: Bone mineral density 0.674 g/cm2, T score -2.2. Right Femoral Neck: Bone mineral density 0.610 g/cm2, T score -2.2. Fracture Risk Calculation (when applicable): FRAX not provided due to osteoporosis. (T score greater or equal to -1.0 to: NORMAL) (T score from -1.1 to -2.4: OSTEOPENIA) (T score less than or equal to -2.5: OSTEOPOROSIS) IMPRESSION: Osteoporosis. Follow-up guidelines as follows: Osteoporosis: Consider a repeat DEXA and Vertebral Fracture Assessment (VFA) exam in 2 years or sooner if medically necessary, to reassess this patient's status. Osteopenia: Consider a repeat DEXA in 2-3 years to reassess this patient's status, or if there is a new clinical indication. Normal: Consider a repeat DEXA in 5 years or sooner, or if there is a new clinical indication. Dictated by: Nir Gottlieb M.D. on 07/06/2023 at 22:34 Approved by: Nir Gottlieb M.D. on 07/06/2023 at 22:36
== END ==
LOC: RAD 15:01
PROVIDERS: Family Provider Family Medicine; PCP Physician Assistant Medical; Referring Provider Specialist/Technologist Athletic Trainer; Visit Provider Specialist/Technologist Athletic Trainer
DX: M81.0 Age-related osteoporosis without current pathological fracture (principal); M05.79 Rheumatoid arthritis with rheumatoid factor of multiple sites without organ or systems involvement
CPT/HCPCS: 77080

== ENCOUNTER → 2024-04-04 08:23 | Outpatient (CLI) | payer MEDICARE, SELFPAY ==
[2021-07-17 15:58] VITALS: BMI 26.8
== END ==
PROVIDERS: Family Provider Family Medicine; PCP Physician Assistant Medical; Referring Provider Orthopaedic Surgery Foot and Ankle Surgery; Visit Provider Surgery
DX: S91.302A Unspecified open wound, left foot, initial encounter (principal); T81.31XA Disruption of external operation (surgical) wound, not elsewhere classified, initial encounter; L53.8 Other specified erythematous conditions; R60.0 Localized edema
CPT/HCPCS: 11042; 87070; 87075; 87077; 87147; 87186; 87205; 99203; 99214

== ENCOUNTER → 2024-04-12 11:21 | Outpatient (CLI) | payer MEDICARE, SELFPAY ==
[2021-07-17 15:58] VITALS: BMI 26.8
== END ==
PROVIDERS: Family Provider Family Medicine; PCP Physician Assistant Medical; Referring Provider Orthopaedic Surgery Foot and Ankle Surgery; Visit Provider Surgery
DX: T81.31XA Disruption of external operation (surgical) wound, not elsewhere classified, initial encounter (principal); S91.302A Unspecified open wound, left foot, initial encounter; R60.0 Localized edema
CPT/HCPCS: 11042

== ENCOUNTER → 2024-04-19 14:56 | Outpatient (CLI) | payer MEDICARE, SELFPAY ==
[2021-07-17 15:58] VITALS: BMI 26.8
== END ==
LOC: WC 14:57
PROVIDERS: Family Provider Family Medicine; PCP Physician Assistant Medical; Referring Provider Orthopaedic Surgery Foot and Ankle Surgery; Visit Provider Surgery
DX: T81.89XA Other complications of procedures, not elsewhere classified, initial encounter (principal); S91.302A Unspecified open wound, left foot, initial encounter
CPT/HCPCS: 11042

== ENCOUNTER → 2024-04-26 14:00 | Outpatient (CLI) | payer MEDICARE, SELFPAY ==
[2021-07-17 15:58] VITALS: BMI 26.8
== END ==
LOC: WC 14:02
PROVIDERS: Family Provider Family Medicine; PCP Physician Assistant Medical; Referring Provider Orthopaedic Surgery Foot and Ankle Surgery; Visit Provider Surgery
DX: T81.89XA Other complications of procedures, not elsewhere classified, initial encounter (principal); L98.8 Other specified disorders of the skin and subcutaneous tissue; S91.302A Unspecified open wound, left foot, initial encounter; R60.0 Localized edema
CPT/HCPCS: 11042

== ENCOUNTER → 2024-04-27 14:52 | Outpatient (CLI) | payer MEDICARE, SELFPAY ==
[2021-07-17 15:58] VITALS: BMI 26.8
--- NOTE | 2024-04-27 14:53 | DI.US.S_ITS ---
PROCEDURE: US ARTERIAL DUPLEX LE LT INDICATIONS: non-healing ulcer on left lateral foot TECHNIQUE: Color and pulse Doppler interrogation was performed of the left lower extremity arterial system, with image documentation. COMPARISON: None. FINDINGS: Common femoral artery: 178 cm/sec, with biphasic flow. Deep femoral artery: 90 cm/sec, with triphasic flow. Proximal superficial femoral artery: 137 cm/sec, with biphasic flow. Mid superficial femoral artery: 111 cm/sec, with biphasic flow. Distal superficial femoral artery: 84 cm/sec, with biphasic flow. Popliteal artery: 105 cm/sec, with biphasic flow. Posterior tibial artery: Nonvisualized Anterior tibial artery/dorsalis pedis: 106 cm/sec, with triphasic flow. Cutler-scale imaging description: Unremarkable IMPRESSION: Nonvisualized posterior tibial artery. Consider follow-up CT angiogram for further evaluation. No significant grayscale atherosclerotic plaque imaged. Biphasic waveforms in the mid thigh suggests an element of peripheral vascular disease. Discordant findings could also be further evaluated with CT a. Approved by: Eagle Lemons M.D. on 04/30/2024 at 13:53
== END ==
LOC: US 14:52
PROVIDERS: Family Provider Family Medicine; PCP Physician Assistant Medical; Referring Provider Surgery; Visit Provider Surgery
DX: S91.302A Unspecified open wound, left foot, initial encounter (principal)
CPT/HCPCS: 93926

== ENCOUNTER → 2024-05-04 08:47 | Outpatient (CLI) | payer MEDICARE, SELFPAY ==
[2021-07-17 15:58] VITALS: BMI 26.8
== END ==
PROVIDERS: Family Provider Family Medicine; PCP Physician Assistant Medical; Referring Provider Physician Assistant Medical; Visit Provider Surgery
DX: T81.89XA Other complications of procedures, not elsewhere classified, initial encounter (principal); S91.302A Unspecified open wound, left foot, initial encounter; R60.0 Localized edema
CPT/HCPCS: 11042; 99213

== ENCOUNTER → 2024-05-11 11:15 | Outpatient (CLI) | payer MEDICARE, SELFPAY ==
[2021-07-17 15:58] VITALS: BMI 26.8
--- NOTE | 2024-05-11 | OV.WND_ITS ---
PROGRESS NOTE DETAILS PATIENT NAME: ANGEL MCKINNEY PATIENT NUMBER: [id number] CLINICIAN: MARLON RODRIGUEZ RN PATIENT DATE OF : 1940 PHYSICIAN / POLISH MAKER: TORI BARRERA PA-C PATIENT SUBJECTIVE CHIEF COMPLAINT THIS INFORMATION WAS OBTAINED FROM THE PATIENT. I HAVE A WOUND ON MY ANKLE LEFT. GENERAL NOTES LEFT SURGICCAL WOUND ALLERGIES SULFANILAMIDE, PREDNISONE, PENICILLINS, NAPROXEN SODIUM, ERYTHROMYCIN BASE (REACTION: STOMACH UPSET), CLARITHROMYCIN, CELECOXIB, ADHESIVE, BIAXIN (REACTION: RASH) HPI THIS INFORMATION WAS OBTAINED FROM THE PATIENT. LOCATION: LEFT FOOT DURATION: 01/12/24 CONTEXT: SURGICAL THE PATIENT IS AN 83-YEAR-OLD FEMALE WITH COPD, RHEUMATOID ARTHRITIS AND OSTEOPOROSIS WHO RETURNS TODAY FOR FOLLOW UP OF A SURGICAL WOUND ON THE LEFT FOOT. SHE PREVIOUSLY UNDERWENT EXTENSIVE TIBIA SUBTALAR CALCANEAL FUSION OF THE LEFT LOWER EXTREMITY AND REVISION FIXATION OF THE PROXIMAL TIBIAL SHAFT FRACTURE. SHE THEN UNDERWENT DISTAL SCREW REMOVAL JANUARY 12, 2024 AND HAS HAD A SLOW HEALING WOUND AT THE LATERAL SCREW REMOVAL SITE. THE PATIENT IS RECEIVING DRESSING CHANGES WITH HYDROFERA BLUE AND COLLAGEN AND IS RINSING THE WOUND WITH VASHE SOLUTION WITH THE EACH DRESSING CHANGE. THE PATIENT DENIES HAVING ANY PAIN OR DISCOMFORT. SHE HAS HAD SOME SLIGHT DRAINAGE BUT HAS NOT NOTED ANY REDNESS OR SWELLING NOR HAS SHE HAD ANY FEVER OR CHILLS. THE WOUND IS SLIGHTLY TENDER. SHE WAS TREATED WITH A COURSE OF KEFLEX AND LEVAQUIN SHORTLY AFTER THE SCREW REMOVAL AND HAS RECENTLY COMPLETED A COURSE OF DOXYCYCLINE. SHE REPORTS A GOOD APPETITE AND IS TAKING PROTEIN SUPPLEMENTS. SHE DENIES HAVING ANY OTHER RECENT CHANGES IN HER OVERALL HEALTH. PATIENT REPORTS SHE HAS BEEN TOLD SHE NEEDS TO HAVE THE TIBIAL KILEY REMOVED BUT SHE DOES NOT WANT TO PROCEED WITH ANY SURGERY UNTIL HER WOUND IS HEALED BECAUSE SHE DOES NOT WANT TO BE CHAIRBOUND THIS SPRING FROM SURGERY. THE PATIENT IS ABLE TO AMBULATE WITHOUT DIFFICULTY. THE PATIENT DOES OCCASIONALLY SMOKE CIGARETTES. ON EXAM TODAY THE MEASUREMENTS ARE CONTINUING TO IMPROVE, NO SIGN OF INFECTION. THIS IS THE FIRST TIME I HAVE SEEN THIS PATIENT. LABS 04/27/24: ARTERIAL DOPPLER: NON VISUALIZED POSTERIOR TIBIAL ARTERY. BIPHASIC WAVEFORMS IN THE MID THIGH SUGGEST AN ELEMENT OF PERIPHERAL VASCULAR DISEASE. 04/04/24: CULTURE GREW STAPHYLOCOCCUS LUGDUNENSIS MEDICAL HISTORY THIS INFORMATION WAS OBTAINED FROM THE PATIENT. PATIENT HAS A MEDICAL HISTORY OF: NGHIA MCKINNEYTH Claire [id number] 1940 CHRONIC OBSTRUCTIVE PULMONARY DISEASE (COPD) RHEUMATOID ARTHRITIS HYPOTHYROIDISM OSTEOPOROSIS ADDITIONAL INFORMATION DOES PATIENT HAVE A HISTORY OF CANCER? YES? COMPLETE ALL QUESTIONS.: NO SURGICAL HISTORY THIS INFORMATION WAS OBTAINED FROM THE PATIENT. PATIENT HAS A SURGICAL HISTORY OF: L ANKLE FUSION- (11/2020) L LEG- METAL KILEY PLACEMENT- (05/2021) R 2ND TOE AMPUTATION- (2017) R KNEE REPLACEMENT- (2016) OBJECTIVE VITALS HEIGHT/LENGTH: 61 IN (154.94 CM), WEIGHT: 133.1 LBS (60.5 KGS), BMI: 25.1, TEMPERATURE: 97.8 ?F (36.56 ?C), PULSE: 87 BPM, RESPIRATORY RATE: 16 BREATHS/MIN, BLOOD PRESSURE: 142/78 MMHG, PULSE OXIMETRY: 99 %. PHYSICAL EXAM CONSTITUTIONAL: GENERALIZED WEAKNESS. IN NO APPARENT DISTRESS. GOOD ATTENTION TO HYGIENE AND BODY HABITS. ALERT AND ORIENTED X 3. WELL NOURISHED. VITAL SIGNS REVIEWED AND NOTED. BLOOD PRESSURE NORMAL. PULSE RATE AND RHYTHM REGULAR. WEIGHT WNL. WELL DEVELOPED, WELL NOURISHED, AND IN NO ACUTE DISTRESS. ALERT AND ORIENTED X3. AMBULATES AND IS ABLE TO CHANGE POSITION WITHOUT ASSISTANCE. ALERT AND ORIENTED X 3. RESPIRATORY: EVEN RESPIRATIONS WITHOUT USE OF ACCESSORY MUSCLES. NO INTERCOASTAL RETRACTIONS NOTED. EVEN AND NON LABORED RESPIRATION. CARDIOVASCULAR: SEE LOWER EXTREMITY ASSESSMENT WHEN APPLICABLE. THERE IS NO PERIPHERAL EDEMA, CYANOSIS OR PALLOR. EXTREMITIES ARE WARM AND WELL PERFUSED. CAPILLARY REFILL IS LESS THAN 2 SECONDS. INTEGUMENTARY (HAIR, SKIN): SEE WOUND DESCRIPTION. NEUROLOGICAL: SENSATION: SYMMETRIC FUNCTION BY INFORMAL OBSERVATION. PSYCHIATRIC: ORIENTATION TO TIME, PLACE AND PERSON: NORMAL AFFECT WITH NORMAL THOUGHT PATTERN. MOOD AND AFFECT: NORMAL AFFECT WITH NORMAL THOUGHT PATTERN. WOUND ASSESSMENT(S) WOUND #1 LEFT, LATERAL FOOT IS A CHRONIC FULL THICKNESS SURGICAL WOUND ACQUIRED ON 01/12/2024 AND HAS RECEIVED A STATUS OF NOT HEALED. INITIAL WOUND ENCOUNTER MEASUREMENTS ARE 0.1CM LENGTH X 0.1CM WIDTH X 0.1 CM DEPTH, WITH AN AREA OF 0.01 SQ CM AND A VOLUME OF 0.001 CUBIC CM.INITIAL WOUND ENCOUNTER PREVIOUS MEASUREMENTS FROM 05/04/2024 ARE 0.2CM LENGTH X 0.5CM WIDTH X 0.2CM DEPTH, WITH AN AREA OF 0.1 SQ CM AND A VOLUME OF 0.02 CUBIC CM. ADIPOSE IS EXPOSED. NO TUNNELING HAS BEEN NOTED. NO SINUS TRACT HAS BEEN NOTED. NO UNDERMINING HAS BEEN NOTED. THERE IS A SCANT AMOUNT OF SEROUS DRAINAGE NOTED WHICH HAS NO ODOR. THE PATIENT REPORTS A WOUND PAIN OF LEVEL 0/10. THE WOUND MARGIN IS ATTACHED WOUND BED HAS NO, GRANULATION, NO SLOUGH, NO ESCHAR, NO EPITHELIALIZATION. THE PERIWOUND SKIN EXHIBITED EDEMA. THE PERIWOUND SKIN DID NOT EXHIBIT BRAWNY INDURATION, ANGEL MCKINNEY [id number] 1940 EXCORIATION, INDURATION, CALLUS, CREPITUS, FLUCTUANCE, RASH, MACERATION, ATROPHIE MICHELLE, CYANOSIS, ECCHYMOSIS, ERYTHEMA, HEMOSIDEROSIS, PALLOR AND RUBOR. THE PERIWOUND SKIN WAS MOIST. THE PERIWOUND SKIN WAS NOT FRIABLE AND DRY/SCALY. THE TEMPERATURE OF THE PERIWOUND SKIN IS COOL. PERIWOUND SKIN DOES NOT EXHIBIT SIGNS OR SYMPTOMS OF INFECTION. LOCAL PULSE IS DOPPLER. GENERAL NOTES DRY DRAINAGE ADDITIONAL INFORMATION SANIA/VASCULAR COMPLETED?: PT DID NOT TOLERATE SANIA. ARTERIAL US ORDERED 04/04/24. ASSESSMENT ACTIVE PROBLEMS ICD-10 (ENCOUNTER DIAGNOSIS) S91.302D - UNSPECIFIED OPEN WOUND, LEFT FOOT, SUBSEQUENT ENCOUNTER (ENCOUNTER DIAGNOSIS) T81.31XD - DISRUPTION OF EXTERNAL OPERATION (SURGICAL) WOUND, NOT ELSEWHERE CLASSIFIED, SUBSEQUENT ENCOUNTER PROCEDURES WOUND #1 WOUND #1 (SURGICAL WOUND) IS LOCATED ON THE LEFT, LATERAL FOOT. A SKIN/SUBCUTANEOUS TISSUE LEVEL SURGICAL DEBRIDEMENT WITH A TOTAL AREA DEBRIDED OF 0.06 SQ CM. WAS PERFORMED BY TORI BARRERA PA-C. SUBCUTANEOUS WAS REMOVED ALONG WITH DEVITALIZED TISSUE: EXUDATE. THE FOLLOWING INSTRUMENT(S) WERE USED: CURETTE AND ULTRASOUND PROBE TIP. PAIN CONTROL WAS ACHIEVED USING EMLA LIDOCAINE/PRILOCAINE 2.5%/2.5%. A TIME OUT WAS CONDUCTED PRIOR TO THE START OF THE PROCEDURE. A MINIMAL AMOUNT OF BLEEDING WAS CONTROLLED WITH PRESSURE. THE PROCEDURE WAS TOLERATED WELL WITH A PAIN LEVEL OF 0 THROUGHOUT AND A PAIN LEVEL OF 0 FOLLOWING THE PROCEDURE. POST DEBRIDEMENT MEASUREMENTS: 0.3CM LENGTH X 0.2CM WIDTH X 0.1CM DEPTH; WITH AN AREA OF 0.06 SQ CM AND A VOLUME OF 0.006 CUBIC CM. ADDITIONAL INFORMATION MUSCLE FASCIA OR BONE REMOVED AND SENT TO PATHOLOGY?: NO PLAN WOUND ORDERS: WOUND #1 LEFT, LATERAL FOOT CLEANSER CLEANSE WOUND WITH NORMAL SALINE CLEANSE WOUND WITH HYPOCHLOROUS ACID (VASHE OR SIMILAR) THEN APPLY HYPOCHLOROUS ACID SOAKED 4X4 GAUZE TO WOUND BED FOR 5-10 MINUTES AFTER WOUND ASSESSMENT COMPLETED. DRESSING ORDERS APPLY DRESSING(S) AND SECURE WITH: - PROMOGRAN (MOISTEN WITH SALINE OR DISTILLED WATER),HYDROFERA BLUE AND TAPE ADDITIONAL ORDERS: PROCEDURE / ANESTHETIC 5% TOPICAL LIDOCAINE TO WOUND BED PRIOR TO PROCEDURE, IN CLINIC ONLY. DRESSING CHANGE FREQUENCY CHANGE DRESSING 3 TIMES PER WEEK. COMPRESSION/EDEMA CONTROL ANGEL MCKINNEY [id number] 1940 ELEVATE LEG(S) ABOVE THE LEVEL OF THE HEART MUCH POSSIBLE. AVOID STANDING IN ONE POSITION FOR MORE THAN 10 MINUTES. AVOID SITTING WITH LEGS DOWN. DO NOT CROSS LEGS WHEN SITTING. OFF-LOADING / PRESSURE RELIEF OTHER ORDER: - KEEP WEIGHT OFF LEFT FOOT DIETARY TAKE VITAMIN C 1000MG BY MOUTH DAILY. TAKE ZINC 25MG BY MOUTH DAILY. INCREASE THE PROTEIN IN YOUR DIET. FOLLOW-UP APPOINTMENTS RETURN APPOINTMENT 1 WEEK SCRIBING ATTESTATION I ATTEST, THE NURSE, THAT I SCRIBED THESE ORDERS FOR THE WOUND CARE PROVIDER. PROVIDER REVIEW AND ATTESTATION: REVIEWED AND EVALUATED LABS. REVIEWED HOSPITAL RECORDS. DISCUSSED THE PLAN OF CARE @ BEDSIDE WITH - THE PATIENT SMOKING CESSATION WAS ENCOURAGED. I AGREE AND ATTEST TO THE ABOVE INFORMATION PROVIDED FROM OTHER LICENSED PROFESSIONALS. PLAN OF CARE: 01. ENSURE/ESTABLISH OPTIMAL BLOOD FLOW : - COMPLETE LOWER EXTREMITY ASSESSMENT STATUS: COMPLETED DATE: 04/04/2024 - PERFORM NON-INVASIVE VASCULAR TESTING (I.E. SANIA) AND DOCUMENT FINDINGS. CONSIDER REPEATING WHEN WOUND HEALING <40% AFTER 30 DAYS OF WOUND CARE. - ARTERIAL US ORDERED. STATUS: CONTINUED DATE: 05/04/2024 02. ASSESS FOR/TREAT INFECTION : - EVALUATE FOR SIGNS AND SYMPTOMS OF INFECTION AND DOCUMENT FINDINGS. STATUS: CONTINUED DATE: 05/11/2024 03. DEBRIDE WEEKLY OR MORE OFTEN PRN : - DEBRIDEMENT BY ANY METHOD TO REMOVE DEVITALIZED/NECROTIC TISSUE TO PROMOTE HEALING AND PREVENT FURTHER COMPLICATIONS. GOAL IS TO STIMULATE AND/OR MAINTAIN ACUTE PHASE OF WOUND HEALING BY REDUCING BACTERIAL BURDEN AND DEVITALIZED/NON-VIABLE TISSUE. STATUS: CONTINUED DATE: 05/11/2024 04. OPTIMIZE GLUCOSE CONTROL AND NUTRITION : - REVIEWED, NOT APPLICABLE 05. OFFLOADING PLAN : - ADVISE PATIENT TO OFFLOAD THE FOOT ULCER. (I.E. HALF SHOE, SURGICAL SHOE, INSERT, CUSTOM SHOE, FELT AND FOAM, CAM WALKER, MULTIPODUS SPLINT, TOTAL CONTACT CAST, BI-VALVE CAST, POSTERIOR SPLINT). STATUS: CONTINUED DATE: 05/11/2024 06. OPTIMIZE HOST FACTORS: - ASSESS AND REVIEW PATIENT HISTORY FOR WOUND ETIOLOGY, CO-MORBID CONDITIONS, MEDICATION REGIME, AND SMOKING HISTORY. STATUS: CONTINUED DATE: 05/11/2024 07. DRESSING SELECTION : - CHOOSE TOPICAL TREATMENTS AND/OR DRESSING BASED ON WOUND TYPE AND APPEARANCE, PERIWOUND SKIN CONDITION, WOUND SIZE AND DEPTH, ANATOMIC LOCATION, VOLUME OF EXUDATE, EDEMA IN THE LOWER EXTREMITIES, AND RISK OR PRESENCE OF INFECTION. STATUS: CONTINUED DATE: 05/11/2024 08. ADVANCED MODALITIES : - RE-EVALUATE PLAN OF CARE IF NO EVIDENCE OF HEALING (40% IN 4 WEEKS). STATUS: CONTINUED DATE: 05/11/2024 09. FALL PREVENTION : - COMPLETE FALL ASSESSMENT. ANGEL MCKINNEY [id number] 1940 STATUS: COMPLETED DATE: 05/11/2024 10. PAIN MANAGEMENT : - INSTRUCT THE PATIENT TO CALL ?TIME-OUT? IF PAIN IS TOO INTENSE DURING PROCEDURE. STATUS: CONTINUED DATE: 05/11/2024 11. MEASURABLE GOALS FOR WOUND HEALING AND/OR HYPERBARIC OXYGEN THERAPY : - WOUND CLOSURE STATUS: CONTINUED DATE: 05/11/2024 12. DURATION/FREQUENCY OF WOUND CARE VISITS : - 1X WEEKLY FOR 30 DAYS STATUS: CONTINUED DATE: 05/11/2024 CONTINUE PROMOGRAN WITH HYDROFERA BLUE SECURED WITH TAPE CONTINUE HOME HEALTH TWICE WEEKLY RECHECK HERE 1 WEEK ELECTRONIC SIGNATURE(S) SIGNED BY: DATE: TORI BARRERA PA-C 05/14/2024 00:43:47 (PT) ENTERED BY: TORI BARRERA PA-C ON 05/14/2024 00:43:30 (PT) ANGEL MCKINNEY [id number] 1940
== END ==
PROVIDERS: Family Provider Family Medicine; PCP Physician Assistant Medical; Referring Provider Physician Assistant Medical; Visit Provider Physician Assistant
DX: S91.302A Unspecified open wound, left foot, initial encounter (principal); T81.31XA Disruption of external operation (surgical) wound, not elsewhere classified, initial encounter; R60.0 Localized edema
CPT/HCPCS: 11042; 99213

== ENCOUNTER → 2024-05-18 11:15 | Outpatient (CLI) | payer MEDICARE, SELFPAY ==
[2021-07-17 15:58] VITALS: BMI 26.8
== END ==
PROVIDERS: Family Provider Family Medicine; PCP Physician Assistant Medical; Referring Provider Orthopaedic Surgery Foot and Ankle Surgery; Visit Provider Physician Assistant
DX: S91.302D Unspecified open wound, left foot, subsequent encounter (principal); T81.31XD Disruption of external operation (surgical) wound, not elsewhere classified, subsequent encounter
CPT/HCPCS: 99212